=== PATIENT | male | born 1980 | race Caucasian/White ===

== ENCOUNTER 2021-01-30 09:25 | Outpatient (REF) | payer OTHER, SELFPAY ==
[2021-01-30 11:09] LABS: MANUAL DIFF FLAG NO
[2021-01-30 11:15] LABS: Basophils Percent Auto 0.4 % (0-2); Eosinophils Absolute Auto 0.1 X10*3/uL (0.0-0.4); Eosinophils Percent Auto 1.1 % (0-4); Hematocrit 48.9 % (42-52); Hemoglobin 16.4 g/dl (14.0-18.0); Imm Gran Abs Auto 0.03 X10*3/uL (0.00-0.03); Imm Gran Pct Auto 0.4 % (0.0-0.4); Lymphocytes Absolute Auto 1.8 X10*3/uL (1.2-4.9); Lymphocytes Percent Auto 25.1 % (20-40); Mean Corpuscular HGB Conc 33.5 g/dl (31.0-36.0); Mean Corpuscular Hemoglobin 29.5 pg (27.0-33.0); Mean Corpuscular Volume 87.9 fL (80-98); Mean Platelet Volume 11.4 fL (9.4-12.4); Monocytes Absolute Auto 0.7 X10*3/uL (0.1-1.2); Monocytes Percent Auto 9.4 % (2-11); Neutrophils Absolute Auto 4.5 X10*3/uL (2.0-8.3); Neutrophils Percent Auto 63.6 % (45-73); Platelet Count 234 X10*3/uL (160-400); Red Blood Count 5.56 X10*6/uL (4.60-5.80); Red Cell Distribution Width 12.1 % (11.0-16.0)
[2021-01-30 11:39] LABS: Anion Gap 13 (12-20); Blood Urea Nitrogen 13 mg/dL (9-16); Calcium 9.6 mg/dL (8.4-10.2); Carbon Dioxide 27 mmol/L (22-29); Chloride 103 mmol/L (96-108); Estimated Glomerular Filt Rate > 60; Glucose Random 89 mg/dL (60-115); Potassium 4.9 mmol/L (3.3-5.1); Sodium 138 mmol/L (135-145)
[2021-01-30 12:10] LABS: Prothrombin Time 11.1 SEC (9.9-13.0)
== END 2021-01-30 09:26 | disposition home or self-care (01) ==
LOC: HO.HMGCLDS 09:25
PROVIDERS: Visit Provider Internal Medicine Cardiovascular Disease
DX: I25.10 Atherosclerotic heart disease of native coronary artery without angina pectoris (principal)
CPT/HCPCS: 36415; 80048; 85025; 85610

== ENCOUNTER 2021-05-04 12:03 | Outpatient (REF) | payer OTHER, SELFPAY | END 2021-05-04 12:04 | disposition home or self-care (01) | LOC: HO.LNP 12:03 | PROVIDERS: Visit Provider Physician Assistant Medical | DX: Z20.822 Contact with and (suspected) exposure to COVID-19 (principal) | CPT/HCPCS: 87071; U0003; U0005 ==

== ENCOUNTER 2021-08-10 09:35 | Outpatient (REF) | payer OTHER, SELFPAY ==
[2021-08-10 11:47] LABS: Alanine Aminotransferase 27 U/L (0-40); Albumin Level 4.3 g/dL (3.5-5.0); Alkaline Phosphatase 75 U/L (39-117); Aspartate Amino Transferase 20 U/L (5-37); Bilirubin Direct 0.3 mg/dL (0.0-0.5); Cholesterol 150 mg/dL; HDL Cholesterol 36 mg/dL; LDL Cholesterol Calculated 81 mg/dl; Triglycerides 165 mg/dL
== END 2021-08-10 09:36 | disposition home or self-care (01) ==
LOC: HO.HMGCLDS 09:35
PROVIDERS: PCP Internal Medicine; Visit Provider Internal Medicine Cardiovascular Disease
DX: I25.2 Old myocardial infarction (principal)
CPT/HCPCS: 36415; 80061; 80076

== ENCOUNTER 2021-10-03 09:03 | Outpatient (REF) | payer OTHER, SELFPAY ==
[2021-10-03 11:20] LABS: Alanine Aminotransferase 27 U/L (0-40); Albumin Level 4.5 g/dL (3.5-5.0); Alkaline Phosphatase 87 U/L (39-117); Anion Gap 12 (12-20); Aspartate Amino Transferase 19 U/L (5-37); Blood Urea Nitrogen 14 mg/dL (9-16); C Reactive Protein 0.81 mg/dL (< or = 0.50); Calcium 9.5 mg/dL (8.4-10.2); Carbon Dioxide 25 mmol/L (22-29); Chloride 106 mmol/L (96-108); Estimated Glomerular Filt Rate > 60; Glucose Random 105 mg/dL (60-115); Lipase 825 U/L (8-78); Potassium 4.3 mmol/L (3.3-5.1); Sodium 139 mmol/L (135-145); Total Protein 7.1 g/dL (6.5-8.0)
[2021-10-03 15:04] LABS: H Pylori Breath Test Negative (Negative)
[2021-10-04 22:41] LABS: Transglutaminase Ab IgG <1.0 U/mL; Transglutaminase IgA <1.0 U/mL
== END 2021-10-03 09:04 | disposition home or self-care (01) ==
LOC: HO.LAB 09:03
PROVIDERS: PCP Internal Medicine; Referring Provider Internal Medicine; Visit Provider Nurse Practitioner Family
DX: R10.32 Left lower quadrant pain (principal); R19.7 Diarrhea, unspecified; K58.2 Mixed irritable bowel syndrome; K58.9 Irritable bowel syndrome, unspecified; R14.0 Abdominal distension (gaseous); Z79.899 Other long term (current) drug therapy
CPT/HCPCS: 36415; 80053; 83013; 83690; 86140; 86364; 99202

== ENCOUNTER 2021-10-04 13:52 | Outpatient (REF) | payer OTHER, SELFPAY ==
--- NOTE | ~2021-10-04 | CT_ITS ---
EXAMINATION: CT ABDOMEN AND PELVIS WITH CONTRAST CLINICAL INFORMATION: Abdominal pain COMPARISON: CT abdomen pelvis 08/22/2015 TECHNIQUE: Multidetector volumetric images were obtained from the superior aspect of the liver through the pubic symphysis following administration 85 mL of Omnipaque 350 intravenous contrast. Sagittal and coronal reformatted images were obtained on the technologist's workstation. Oral contrast: No This CT examination was performed using dose optimization techniques as appropriate, variously including the following: *Automated exposure control *Adjustment of mA and/or kV according to patient size (this includes techniques or standardized protocols for targeted exams where dose is matched to indication/reason for exam; i.e. extremities or head) *Use of iterative reconstruction technique DLP: 805 mGy-cm FINDINGS: LUNG BASES: Coronary artery stents. ABDOMINAL AND PELVIC WALL: Small fat-containing umbilical hernia. LIVER AND BILIARY TREE: Unremarkable. GALLBLADDER: Cholelithiasis without evidence of acute cholecystitis. PANCREAS: Unremarkable. SPLEEN: Unremarkable. ADRENAL GLANDS: Unremarkable. KIDNEYS AND URETERS: Subcentimeter right renal hypodensities too small to characterize. No hydronephrosis or nephrolithiasis. GASTROINTESTINAL TRACT: Small hiatal hernia. Minimal colonic diverticulosis without evidence of diverticulitis. No findings to suggest appendicitis. VASCULAR: Unremarkable. LYMPH NODES/PERITONEUM: No lymphadenopathy. FREE FLUID: None. BLADDER: Unremarkable. PELVIC VISCERA: Unremarkable. OSSEOUS STRUCTURES: Degenerative disc disease at L5-S1. CT/CT abdomen pelvis w con IMPRESSION: Cholelithiasis without evidence of acute cholecystitis. Minimal colonic diverticulosis without evidence of diverticulitis.
[2021-10-04] MEDS: iohexoL 350 MG/ML 100 ML INFUS..BTL IV (16:20)
[2021-10-04] MEDS: Barium Sulfate Oral (Mocha) 450 ML ORAL.SUSP 900 ML PO (16:21)
== END 2021-10-04 13:53 | disposition home or self-care (01) ==
LOC: HO.CT 13:52
PROVIDERS: PCP Internal Medicine; Visit Provider Nurse Practitioner Family
DX: R10.9 Unspecified abdominal pain (principal); R74.8 Abnormal levels of other serum enzymes
CPT/HCPCS: 74177; Q9967

== ENCOUNTER 2021-10-05 12:01 | Outpatient (REF) | payer OTHER, SELFPAY ==
[2021-10-12 19:11] LABS: Pancreatic Elastase-1 >500 mcg/g
== END 2021-10-05 12:02 | disposition home or self-care (01) ==
LOC: HO.LNP 12:01
PROVIDERS: Visit Provider Nurse Practitioner Family
DX: R19.7 Diarrhea, unspecified (principal)
CPT/HCPCS: 82656

== ENCOUNTER 2021-10-12 08:14 | Outpatient (REF) | payer OTHER, SELFPAY ==
[2021-10-12 08:46] LABS: MANUAL DIFF FLAG NO
[2021-10-12 09:24] LABS: Basophils Percent Auto 0.5 % (0-2); Eosinophils Absolute Auto 0.1 X10*3/uL (0.0-0.4); Eosinophils Percent Auto 1.4 % (0-4); Hemoglobin 16.2 g/dl (14.0-18.0); Imm Gran Abs Auto 0.02 X10*3/uL (0.00-0.03); Imm Gran Pct Auto 0.3 % (0.0-0.4); Lymphocytes Absolute Auto 1.8 X10*3/uL (1.2-4.9); Lymphocytes Percent Auto 27.6 % (20-40); Mean Corpuscular HGB Conc 33.1 g/dl (31.0-36.0); Mean Corpuscular Hemoglobin 29.2 pg (27.0-33.0); Mean Corpuscular Volume 88.3 fL (80.0-98.0); Mean Platelet Volume 10.9 fL (9.4-12.4); Monocytes Absolute Auto 0.8 X10*3/uL (0.1-1.2); Monocytes Percent Auto 12.3 % (2-11); Neutrophils Absolute Auto 3.8 x10*3/uL (2.0-8.3); Neutrophils Percent Auto 57.9 % (45-73); Platelet Count 227 X10*3/uL (160-400); Prothrombin Time 10.8 SEC (9.9-13.0); Red Blood Count 5.55 X10*6/uL (4.60-5.80); Red Cell Distribution Width 12.5 % (11.0-16.0); White Blood Count 6.6 X10*3/uL (4.8-10.8)
[2021-10-12 09:43] LABS: Anion Gap 14 (12-20); Blood Urea Nitrogen 14 mg/dL (9-16); Calcium 9.8 mg/dL (8.4-10.2); Carbon Dioxide 26 mmol/L (22-29); Chloride 104 mmol/L (96-108); Estimated Glomerular Filt Rate > 60; Glucose Random 107 mg/dL (60-115); Potassium 4.6 mmol/L (3.3-5.1); Sodium 139 mmol/L (135-145)
== END 2021-10-12 08:15 | disposition home or self-care (01) ==
LOC: HO.LAB 08:14
PROVIDERS: PCP Internal Medicine; Visit Provider Internal Medicine Cardiovascular Disease
DX: Z01.818 Encounter for other preprocedural examination (principal); I25.10 Atherosclerotic heart disease of native coronary artery without angina pectoris; I21.3 ST elevation (STEMI) myocardial infarction of unspecified site
CPT/HCPCS: 36415; 80048; 85025; 85610

== ENCOUNTER → 2021-11-07 16:24 | Outpatient (BNVA) | payer OTHER, SELFPAY | PROVIDERS: PCP Internal Medicine; Referring Provider Internal Medicine; Visit Provider Nurse Practitioner Family | DX: K58.2 Mixed irritable bowel syndrome (principal); K21.9 Gastro-esophageal reflux disease without esophagitis; R10.32 Left lower quadrant pain; R19.7 Diarrhea, unspecified | CPT/HCPCS: 99212 ==

== ENCOUNTER 2021-11-09 12:03 | Outpatient (REF) | payer OTHER, SELFPAY ==
[2021-11-09 13:29] LABS: Blood Urea Nitrogen 18 mg/dL (9-16); Estimated Glomerular Filt Rate > 60; Lipase 78 U/L (8-78)
[2021-11-09 13:41] LABS: TSH reflex Free T4 0.92 uIU/mL (0.32-4.0)
[2021-11-09 13:46] LABS: Folate 10.4 ng/mL (> or = 4.0); Vitamin B12 410 pg/mL (200-900)
[2021-11-09 14:08] LABS: Erythrocyte Sedimentation Rate 2 MM/HR (0-15)
[2021-11-13 15:00] LABS: Anti Nuclear Antibody Screen NEGATIVE (NEGATIVE)
[2021-11-15 14:56] LABS: Vitamin D 25-OH, D2 <4 ng/mL; Vitamin D 25-OH, D3 20 ng/mL; Vitamin D 25-OH, Total 20 ng/mL (30-100)
== END 2021-11-09 12:04 | disposition home or self-care (01) ==
LOC: HO.LAB 12:03
PROVIDERS: PCP Internal Medicine; Visit Provider Nurse Practitioner Family
DX: R74.8 Abnormal levels of other serum enzymes (principal); R10.11 Right upper quadrant pain; E55.9 Vitamin D deficiency, unspecified; R10.32 Left lower quadrant pain; R19.7 Diarrhea, unspecified; Z91.09 Other allergy status, other than to drugs and biological substances
CPT/HCPCS: 36415; 82306; 82565; 82607; 82746; 83690; 84443; 84520; 85652; 86003; 86038; 86039

== ENCOUNTER 2021-12-12 17:14 | Outpatient (REF) | payer OTHER, SELFPAY ==
--- NOTE | ~2021-12-12 | XR_ITS ---
EXAMINATION: XR ORBITS CLINICAL INFORMATION: Pre-MRI orbit. COMPARISON: None TECHNIQUE: 3 views of the orbits were obtained. FINDINGS: No metallic foreign bodies involving the orbits or facial structures. Soft tissue density at the medial right maxillary sinus with polyp or retention cyst. This measures about 2 cm. XR/XR orbit min 4V IMPRESSION: No metallic foreign bodies.
--- NOTE | ~2021-12-12 | MR_ITS ---
EXAMINATION: MR ABDOMEN WITHOUT AND WITH CONTRAST CLINICAL INFORMATION: Chronic pancreatitis. COMPARISON: CT abdomen/pelvis 10/04/2021 TECHNIQUE: MRI of the abdomen before and after the IV administration of 10 mL of Gadavist was obtained using routine sequences. FINDINGS: LUNG BASES: No pleural effusion. LIVER, GALLBLADDER, AND BILIARY TREE: The imaged liver is normal in size and contour. No focal hepatic lesion. No biliary ductal dilatation. Gallstones not well visualized. PANCREAS: Normal contour and signal intensity. Homogeneous enhancement. No peripancreatic stranding or peripancreatic fluid collections. No ductal dilatation. SPLEEN: Not enlarged. ADRENAL GLANDS: No adrenal masses. KIDNEYS: Symmetric in size and enhancement. 1.3 cm sebaceous cyst versus hemorrhagic cyst posterior midpole right kidney. No hydronephrosis. BOWEL AND PERITONEUM: Imaged loops of small and large bowel are not obstructed. No ascites. LYMPH NODES: No bulky abdominal lymphadenopathy. VASCULAR: Normal caliber abdominal aorta. MR/MR abdomen wo/w con IMPRESSION: No acute abnormality.
== END 2021-12-12 17:15 | disposition home or self-care (01) ==
LOC: HO.MRI 17:14
PROVIDERS: Visit Provider Nurse Practitioner Family
DX: Z01.810 Encounter for preprocedural cardiovascular examination (principal); R10.9 Unspecified abdominal pain; K86.1 Other chronic pancreatitis; R11.2 Nausea with vomiting, unspecified
CPT/HCPCS: 70200; 74183; A9585

== ENCOUNTER → 2022-01-05 09:24 | Outpatient (BNVA) | payer OTHER, SELFPAY | PROVIDERS: PCP Internal Medicine; Visit Provider Nurse Practitioner Family | DX: R10.32 Left lower quadrant pain (principal); K21.9 Gastro-esophageal reflux disease without esophagitis; K58.2 Mixed irritable bowel syndrome; K86.1 Other chronic pancreatitis | CPT/HCPCS: 99212 ==

== ENCOUNTER 2022-03-27 12:08 | Day surgery (SDC) | payer OTHER, SELFPAY ==
--- NOTE | 2022-03-23 12:46 | HO.ANESPROP2 ---
Documented by User: Marj Haro NP 03/23/22 12:57 HPI - Anesthesia Eval Consult details Narrative: 42yo M for Upper Endoscopy CAD with SD/Stent 2019. On Brilinta and ASA. OK to stop per cardiology. Per 10/2021 cardiac office visit, cath from this year shows unchanged moderate CAD, patent RCA stent PMFSH Active Problems Active Problems: All Active Problems (Updated 03/21/22 @ 12:02 by Shelly Erickson, TERESSA) Tinea (Acute) Eczematous dermatitis (Acute) Establishing care with new doctor, encounter for (Acute) Coronary artery disease (Acute) History of coronary artery stent placement (Acute) Obesity (BMI 30-39.9) (Acute) Blurring of vision (Acute) Contusion of left knee (Acute) Contusion of arm (Acute) Essential hypertension (Acute) Encounter for general adult medical examination with abnormal findings (Acute) Eczema (Acute) Shortness of breath (Acute) Elevated lipase (Acute) Past Medical History Medical History CAD (coronary artery disease) Dyslipidemia Elevated lipase GERD (gastroesophageal reflux disease) HTN (hypertension) Hx of ventricular tachycardia IBS (irritable bowel syndrome) Myocardial infarction On anticoagulant therapy Family History Family History Father Heart problem HTN (hypertension) Paternal Grandfather HTN (hypertension) Surgical History Surgical History (Updated 03/27/22 @ 12:31 by Dionne Owens RN) History of heart artery stent History of surgery on arm Hx of appendectomy Hx of bone graft Hx of tonsillectomy Social History Social History Housing: House Alcohol intake: current Alcohol intake frequency: holidays/special occasions only Patient Tobacco Use Status: Former Tobacco user Quit Date: 17 yr ago Years Smoked: 11 years Use of substances other than those prescribed or required for medical reasons: Yes Substance Use Frequency: Daily Are you DNR?: No Advance Directives: No Advance Directives Information Provided: Yes 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) Meds Allergies Allergy/AdvReac Type Severity Reaction Status Date / Time No Known Allergies Allergy Verified 03/21/22 11:57 Home Medications Medication Instructions Recorded Confirmed Last Taken Type aspirin 81 mg chewable tablet 1 tab PO DAILY 08/02/20 03/21/22 03/26/22 History atorvastatin 80 mg tablet 80 mg PO BEDTIME 08/02/20 03/21/22 Unknown History carvedilol 6.25 mg tablet 6.25 mg PO BID 08/02/20 03/21/22 Unknown History ezetimibe 10 mg tablet 10 mg PO DAILY 08/02/20 03/21/22 Unknown History lisinopril 20 mg tablet 20 mg PO DAILY 08/02/20 03/21/22 Unknown History nitroglycerin 0.4 mg sublingual 0.4 mg sublingual 03/03/21 04/28/21 Unknown History tablet ticagrelor 90 mg tablet (Brilinta) 90 mg PO BID 03/03/21 03/21/22 03/21/22 History Exam Exam Date and Time: March 23, 2022 1246 Pertinent Lab Results Pertinent Lab Results: Laboratory Tests 10/12/21 10/12/21 11/09/21 08:44 08:44 12:14 WBC 6.6 Hgb 16.2 Hct 49.0 Plt Count 227 Sodium 139 Potassium 4.6 Chloride 104 Carbon Dioxide 26 BUN 18 H Creatinine 0.79 Assessment and Plan Assessment Anesthesia Assessment: Chart Reviewed Documented by User: Ethan Soto MD 03/27/22 13:22 [facility] Past Medical History Medical History CAD (coronary artery disease) Dyslipidemia Elevated lipase GERD (gastroesophageal reflux disease) HTN (hypertension) Hx of ventricular tachycardia IBS (irritable bowel syndrome) Myocardial infarction On anticoagulant therapy Family History Family History Father Heart problem HTN (hypertension) Paternal Grandfather HTN (hypertension) Family history of problems with anesthesia: No Surgical History Surgical History (Updated 03/27/22 @ 12:31 by Dionne Owens RN) History of heart artery stent History of surgery on arm Hx of appendectomy Hx of bone graft Hx of tonsillectomy History of Problems with Anesthesia: No Social History Social History Housing: House Alcohol intake: current Alcohol intake frequency: holidays/special occasions only Patient Tobacco Use Status: Former Tobacco user Quit Date: 17 yr ago Years Smoked: 11 years Use of substances other than those prescribed or required for medical reasons: Yes Substance Use Frequency: Daily Are you DNR?: No Advance Directives: No Advance Directives Information Provided: Yes 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) Meds Allergies Allergy/AdvReac Type Severity Reaction Status Date / Time No Known Allergies Allergy Verified 03/21/22 11:57 Home Medications Medication Instructions Recorded Confirmed Last Taken Type aspirin 81 mg chewable tablet 1 tab PO DAILY 08/02/20 03/21/22 03/26/22 History atorvastatin 80 mg tablet 80 mg PO BEDTIME 08/02/20 03/21/22 Unknown History carvedilol 6.25 mg tablet 6.25 mg PO BID 08/02/20 03/21/22 Unknown History ezetimibe 10 mg tablet 10 mg PO DAILY 08/02/20 03/21/22 Unknown History lisinopril 20 mg tablet 20 mg PO DAILY 08/02/20 03/21/22 Unknown History nitroglycerin 0.4 mg sublingual 0.4 mg sublingual 03/03/21 04/28/21 Unknown History tablet ticagrelor 90 mg tablet (Brilinta) 90 mg PO BID 03/03/21 03/21/22 03/21/22 History Exam Airway Mallampati Class: III TM Dist: >3cm Neck ROM: Full Loose/Missing/Broken Teeth: No (Rrr) Lungs: clear Assessment and Plan Final Anesthetic Review Family History of Problems with Anesthesia: No History of Problems with Anesthesia: No NPO: Yes ASA Class: IV Final Preanesthetic Review: No Changes in Pt Med Stat, Meds/Allgs Chart Reviewed, Consent Obtained/Reviewed and Anes Risks/Benef Reviewed Patient Risk: High Procedure Risk: Low Anesthetic Plan Anesthetic Plan: MAC: Disposition: Standard PACU
--- NOTE | 2022-03-27 | ECG_ITS ---
Test Reason : cad, mi, htn Blood Pressure : / mmHG Vent. Rate : 066 BPM Atrial Rate : 066 BPM P-R Int : 158 ms QRS Dur : 080 ms QT Int : 344 ms P-R-T Axes : 040 036 042 degrees QTc Int : 360 ms Normal sinus rhythm Normal ECG No previous ECGs available Referred By: Majr Haro Electronically Signed By:OMAR JUARES
[2022-03-27 12:33] VITALS: BMI 39.1
[2022-03-27 12:40] VITALS: BP 132/88; PULSE 71; RESP 16; TEMP 36.9; O2SAT 97
--- NOTE | 2022-03-27 12:41 | MHC.SHP ---
Pre-Procedural Eval Section A Date of Service: 03/27/22 Section B Chief Complaint: reflux Details of Present Illness: abdominal pain and diarrhea, dark stools on brilinta Relevant Family History (Specify if Yes): No Relevant Social History: None Present Medications: see Short Stay Collaborative assessment Medical History: Significant History (CAD, eczema, HTN, HLP ) History of Previous Operations: Relevant previous surgery/procedure and date(s) (History of surgery on arm Hx of appendectomy) Allergies: Allergies Allergy/AdvReac Type Severity Reaction Status Date / Time No Known Allergies Allergy Verified 03/21/22 11:57 Review of Systems Sugical H&P ROS: Negative: Constitution, Cardiovascular, Respiratory, Neurological, Psychiatric, Hem-Onc, Allergic/Immunologic, Gastrointestinal, Genitourinary, Musculoskeletal, Integumentary, Endocrine and Eyes/Ears/Nose/Throat Exam Surgical H&P Exam: Normal: HEENT, Normal: Heart, Normal: Lungs, Normal: Extremities, Normal: Abdomen, Normal: Skin and Normal: Neurological Plan Diagnosis/Plan: Unchanged I have reviewed the history and physical and performed a pertinent physical examination on my patient. No changes have occurred unless specified.
[2022-03-27] MEDS: Lactated Ringers 1,000 ML 100 ML IVCONT (12:59)
--- NOTE | 2022-03-27 13:10 | W.PM.OPN ---
Operative Note Operative Note Date of Service: 03/27/22 Narrative: Procedure Description: EGD Indication: GERd, diarrhea, abdominal pain Anesthesia: MAC FLEXIBLE TRANSORAL UPPER GASTROINTESTINAL ENDOSCOPY UPPER ENDOSCOPY Consent: Indications for the procedure and potential complications of bleeding, perforation, reaction to medications and missed diagnosis were discussed with the patient and informed consent was obtained. Instrument: Olympus GIF H 190 J mid size upper endoscope Monitoring: Vital signs and clinical assessment, continuous EKG monitoring, Pulse oximetry, Carbon Dioxide monitoring and blood pressure monitoring were done throughout the procedure. Procedure: The patient was placed in the left lateral decubitis position and pre-procedure medications were administered and a bite block was placed. The endoscope was inserted into the mouth and advanced under direct vision to the third part of duodenum. A careful inspection was made as the upper endoscope was withdrawn including a retroflexed examination of the proximal stomach; Findings and interventions are described below. Findings: Larynx:normal Esophagus: GE junction at 40 cm, diaphragm hiatus at 40 cm, bogginess and swelling with erythema consistent with severe esophagitis at the GEj, bx taken as well as from distal esophagus Stomach: Mild patchy gastric erythema. Biopsies were obtained. Grade 2 flap valve on retroflexed examination of the cardia. Duodenum: Mild duodenitis, bx taken Intervention: Biopsies as noted above Impression/Findings: esophagitis gastritis duodenitis PLAN: commence PPI if not taking if symptoms persist then PPI consider repeat EGD in 3-6 months to recheck for barretts can restart brilinta tomorrow reflux precautions
[2022-03-27 13:55] VITALS: BP 136/77; PULSE 83; RESP 28; TEMP 36.6; O2SAT 97
[2022-03-27 14:10] VITALS: BP 122/84; PULSE 72; RESP 18; TEMP 36.6; O2SAT 97
== END 2022-03-27 15:04 | disposition home or self-care (01) ==
PROVIDERS: PCP Internal Medicine; Visit Provider Internal Medicine Gastroenterology
PROC: 0DJ08ZZ Inspection of Upper Intestinal Tract, Via Natural or Artificial Opening Endoscopic (ICD-10-PCS; CPT 43235; principal; 2022-03-27 13:40)
DX: K21.9 Gastro-esophageal reflux disease without esophagitis (principal); R10.32 Left lower quadrant pain; K20.80 Other esophagitis without bleeding; K29.80 Duodenitis without bleeding; K29.70 Gastritis, unspecified, without bleeding; K44.9 Diaphragmatic hernia without obstruction or gangrene; K58.2 Mixed irritable bowel syndrome; K86.1 Other chronic pancreatitis; I25.10 Atherosclerotic heart disease of native coronary artery without angina pectoris; Z98.61 Coronary angioplasty status; I10 Essential (primary) hypertension; I25.2 Old myocardial infarction; Z79.01 Long term (current) use of anticoagulants; Z79.82 Long term (current) use of aspirin; Z79.899 Other long term (current) drug therapy; Z87.891 Personal history of nicotine dependence
CPT/HCPCS: 43239; 88305; 88342; 93005

== ENCOUNTER 2022-10-16 12:48 | Outpatient (REF) | payer OTHER, SELFPAY ==
--- NOTE | ~2022-10-16 | US_ITS ---
EXAMINATION: US SCROTUM CLINICAL INFORMATION: Scrotal mass. COMPARISON: None available. TECHNIQUE: A sonogram of the scrotum was performed assessing lilly-scale appearance and color Doppler flow. Spectral Doppler analysis of the arterial and venous flow were performed in the testes bilaterally. FINDINGS: RIGHT: Right testicle measures 5.5 x 2.6 x 4.1 cm, volume 26.0 mL. No focal testicular parenchymal lesions are visualized. Spectral Doppler analysis of the arterial and venous flow is normal in the right testis. Right epididymal head is normal in size. Right epididymal Doppler flow is normal. There are right varicoceles. There is a small right hydrocele. LEFT: Left testicle measures 4.7 x 2.6 x 3.6 cm, volume 23.1 mL. No focal testicular parenchymal lesions are visualized. Spectral Doppler analysis of the arterial and venous flow is normal in the left testis. Left epididymal head is normal in size. A 2 mm left epididymal head cyst versus spermatocele is seen. A 3 mm left epididymal body cyst is seen. No left hydrocele or varicocele is seen. Left epididymal Doppler flow is normal. An 8 x 5 x 8 mm anechoic, simple cyst is seen in the vicinity of the spermatic cord. This could represent a spermatic cord cyst or a small peritoneal inclusion cyst US/US scrotum IMPRESSION: 1. Small left epididymal cysts are noted, as detailed. 2. There is a small right hydrocele. 3. There are isolated right varicocele. No retroperitoneal mass is noted on the MRI abdomen dated 12/13/[address] abdomen and pelvis dated 10/04/2021. Consider repeat cross-sectional evaluation of the abdomen and pelvis to exclude the possibility of retroperitoneal mass. 4. And 8 mm simple cyst is seen in the vicinity of the left spermatic cord.
== END 2022-10-16 12:49 | disposition home or self-care (01) ==
LOC: HO.HMGCX 12:48
PROVIDERS: PCP Internal Medicine; Visit Provider Internal Medicine
DX: N50.89 Other specified disorders of the male genital organs (principal)
CPT/HCPCS: 76870

== ENCOUNTER → 2022-11-20 09:51 | Outpatient (BNVA) | payer OTHER, SELFPAY | PROVIDERS: PCP Internal Medicine; Visit Provider Nurse Practitioner Family | DX: N43.3 Hydrocele, unspecified (principal); N50.3 Cyst of epididymis; Z79.82 Long term (current) use of aspirin; Z79.899 Other long term (current) drug therapy | CPT/HCPCS: 99202 ==

== ENCOUNTER 2023-01-08 07:31 | Outpatient (REF) | payer OTHER, SELFPAY ==
[2023-01-08 11:39] LABS: Hematocrit 46.1 % (42.0-52.0); Hemoglobin 15.5 g/dl (14.0-18.0); Mean Corpuscular HGB Conc 33.6 g/dl (31.0-36.0); Mean Corpuscular Hemoglobin 29.5 pg (27.0-33.0); Mean Corpuscular Volume 87.6 fL (80.0-98.0); Mean Platelet Volume 11.7 fL (9.4-12.4); Platelet Count 241 X10*3/uL (160-400); Red Blood Count 5.26 X10*6/uL (4.60-5.80); Red Cell Distribution Width 12.3 % (11.0-16.0); White Blood Count 7.6 X10*3/uL (4.8-10.8)
[2023-01-08 12:13] LABS: Alanine Aminotransferase 19 U/L (0-40); Albumin Level 4.2 g/dL (3.5-5.0); Alkaline Phosphatase 80 U/L (39-117); Amylase 161 U/L (28-100); Anion Gap 10 (12-20); Aspartate Amino Transferase 19 U/L (5-37); Bilirubin Direct 0.3 mg/dL (0.0-0.5); Bilirubin Total 0.7 mg/dL (0.0-1.0); Blood Urea Nitrogen 14 mg/dL (9-16); Calcium 9.3 mg/dL (8.4-10.2); Carbon Dioxide 26 mmol/L (22-29); Chloride 107 mmol/L (96-108); Estimated Glomerular Filt Rate > 60; Glucose Random 105 mg/dL (60-115); Lipase 183 U/L (8-78); Potassium 4.1 mmol/L (3.3-5.1); Sodium 139 mmol/L (135-145)
== END 2023-01-08 07:32 | disposition home or self-care (01) ==
LOC: HO.HMGCLDS 07:31
PROVIDERS: PCP Internal Medicine; Visit Provider Internal Medicine
DX: R10.9 Unspecified abdominal pain (principal)
CPT/HCPCS: 36415; 80048; 80076; 82150; 83690; 85027

== ENCOUNTER 2023-01-09 12:00 | Emergency (ER) | payer OTHER, SELFPAY ==
[2023-01-09 12:14] VITALS: BP 145/70; PULSE 91; RESP 18; TEMP 36.7; O2SAT 95; BMI 42.8
--- NOTE | 2023-01-09 12:16 | ED.ABDPAIN ---
HPI - Abdominal Pain General Chief Complaint: Abdominal Pain Stated Complaint: ? Pancreatitis Time Seen by Provider: 01/09/23 15:51 Source: patient and old records reviewed Mode of arrival: ambulatory Limitations: no limitations History of Present Illness HPI narrative: 42-year-old male with history of chronic abdominal pain for the last 1.5 years, CAD status post stent, obesity, gallstones, eczema, HTN, history of chronic pancreatitis who presents to the ER for evaluation of abnormal lab work as an outpatient. Patient states he went to an urgent care clinic yesterday for evaluation of his left upper quadrant pain, which is intermittent and has been on and off for the last year and a half. He states he had lab work done revealing an elevated lipase. They called him and told him come to the ER for IV fluids and treatment. Patient states he has had elevated lipase in the 800 range in the past. He has never required admission. He does not know the cause. He states he drinks alcohol maybe once per month. He denies ever having any right upper quadrant pain. He states he gets shooting and sharp left upper quadrant pain that radiates to his epigastric area and left lower quadrant. No current pain at this time. 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 Nagy in January. MD elicited complaint: abdominal pain and other (Abnormal labs) Pertinent past history: other (Pancreatitis) Onset (ago): year(s) (1.5) Pain Consistency: intermittent Location: LUQ Severity: moderate Quality: stabbing Radiation: LLQ and epigastric Migration to: no migration Exacerbating factors: nothing Relieving factors: nothing Context: history of similar episodes Associated symptoms: nausea Related Data Home Medications Medication Instructions Recorded Confirmed aspirin 81 mg chewable tablet 1 tab PO DAILY 08/02/20 10/09/22 atorvastatin 80 mg tablet 80 mg PO BEDTIME 08/02/20 10/09/22 carvedilol 6.25 mg tablet 6.25 mg PO BID 08/02/20 10/09/22 ezetimibe 10 mg tablet 10 mg PO DAILY 08/02/20 10/09/22 lisinopril 20 mg tablet 20 mg PO DAILY 08/02/20 10/09/22 nitroglycerin 0.4 mg sublingual 0.4 mg sublingual 03/03/21 10/09/22 tablet ticagrelor 90 mg tablet (Brilinta) 90 mg PO BID 03/03/21 10/09/22 Previous Rx's Medication Instructions Recorded betamethasone, augmented 0.05 % 1 appl topical BID PRN itching #50 04/13/21 topical cream grams olopatadine 0.1 % eye drops 1 drp ophthalmic (eye) BID #5 mL 07/17/22 (Pataday Twice Daily Relief) pantoprazole 40 mg tablet,delayed 40 mg PO DAILY #30 tabs 01/07/23 release Allergies Allergy/AdvReac Type Severity Reaction Status Date / Time No Known Allergies Allergy Verified 01/07/23 14:58 Review of Systems Review of Systems Yes all other systems are reviewed and are negative [facility] Past Medical History Medical History CAD (coronary artery disease) Dyslipidemia Elevated lipase GERD (gastroesophageal reflux disease) HTN (hypertension) Hx of ventricular tachycardia IBS (irritable bowel syndrome) Myocardial infarction On anticoagulant therapy Surgical History History of esophagogastroduodenoscopy (EGD) History of heart artery stent History of surgery on arm Hx of appendectomy Hx of bone graft Hx of tonsillectomy Family History Family History Father Heart problem HTN (hypertension) Paternal Grandfather HTN (hypertension) Social History Social History Housing: House Alcohol intake: current Alcohol intake frequency: holidays/special occasions only Patient Tobacco Use Status: Former Tobacco user Quit Date: 17 yr ago Years Smoked: 11 years e-Cigarette/Vaping Use: Never Used Second Hand Smoke Exposure: No Advance Directives: No Advance Directives Information Provided: No service: No 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 Oriented X3. No acute distress. Head: normocephalic, atraumatic. Eyes: Pupils equal, round and reactive to light. ENT: Pharynx normal. No tonsillar swelling or exudate. Neck: Normal inspection. Neck supple. CVS: Normal heart rate and rhythm. Pulses normal. Respiratory: No respiratory distress. Breath sounds normal. Abdomen: Soft, obese and nontender. +BS x4 Skin: Skin warm and dry. Normal skin color. Normal skin turgor. No rashes. Extremities: No lower extremity edema. No joint swelling. Neuro/psych: Oriented X 3. No motor deficit. No sensory deficit. CN II-XII intact. Normal speech and cognition. Course Course Course Narrative: RME: 42-year-old male with past medical history pancreatitis presenting to the ED complaining of intermittent epigastric/RUQ abdominal pain and bloating times 6-7 months. Was seen at walk-in clinic on 01/07 had outpatient labs which showed elevated lipase, instructed to come to the ED for further eval. Denies pain at present. Likely EtOH on Father's Day Abdomen soft/nontender, nontoxic appearing Labs, UA ordered Full HPI, ROS and PE to be performed by primary ED provider. Medical Decision Making Medical Decision Making [facility] Narrative: 42-year-old male with history of chronic abdominal pain, history pancreatitis of unclear etiology who presents to the ER for evaluation of abnormal lab work and intermittent abdominal pain for the last year and a half. He has no current pain. His lab workup is unremarkable. His lipase is down to 21. He has gen right upper quadrant pain or any tenderness on examination. His prior imaging was reviewed. He had a normal abdominal MRI done about a year ago. He also had right upper quadrant ultrasound done showing cholelithiasis but no evidence of cholecystitis. Doubt any acute biliary issues today given his normal LFTs and no pain. He has outpatient GI follow-up. Comfortable discharge home with outpatient follow-up. Stable for discharge Differential Diagnosis Differential Diagnoses: The differential diagnosis associated with the presentation includes acute on chronic pancreatitis, biliary colic, gallstone pancreatitis, etoh pancreatitis, gastritis, GERD, diverticulitis Admission/Observation Consideration of admission/observation: Escalation of care including admission/observation considered Had abnormal lipase yesterday, has since normalized, pain-free. Lab Data [facility] Lab Attestation statement: I reviewed the patient's lab results. Unremarkable, normal renal function, normal lipase today 01/09/23 12:27 01/09/23 12: Labs: Lab Results 01/09/23 01/09/23 01/09/23 Range/Units 12:27 12:27 12:27 WBC 7.9 (4.8-10.8) X10*3/uL RBC 5.34 (4.60-5.80) X10*6/uL Hgb 15.7 (14.0-18.0) g/dl Hct 45.4 (42.0-52.0) % MCV 85.0 (80.0-98.0) fL MCH 29.4 (27.0-33.0) pg MCHC 34.6 (31.0-36.0) g/dl RDW 12.3 (11.0-16.0) % Plt Count 228 (160-400) X10*3/uL MPV 10.7 (9.4-12.4) fL Immature Gran % (Auto) 0.1 (0.0-0.4) % Neut % (Auto) 64.5 (45-73) % Lymph % (Auto) 24.8 (20-40) % [place] % (Auto) 9.0 (2-11) % Eos % (Auto) 1.1 (0-4) % Baso % (Auto) 0.5 (0-2) % Lymph # (Auto) 2.0 (1.2-4.9) X10*3/uL [place] # (Auto) 0.7 (0.1-1.2) X10*3/uL Eos # (Auto) 0.1 (0.0-0.4) X10*3/uL Baso # (Auto) 0.0 (0.0-0.2) X10*3/uL Abs Immat Gran (auto) 0.01 (0.00-0.03) X10*3/uL Absolute Neuts (auto) 5.1 (2.0-8.3) x10*3/uL Absolute Nucleated RBC 0.000 (0.0-0.012) X10*3/uL Nucleated RBC % (auto) 0.0 (0.0-0.2) /100WBC PT 11.1 (10.0-13.1) SEC INR 1.0 (0.9-1.1) Sodium 140 (135-145) mmol/L Potassium 4.0 (3.3-5.1) mmol/L Chloride 106 (96-108) mmol/L Carbon Dioxide 26 (22-29) mmol/L Anion Gap 12 (12-20) BUN 17 H (9-16) mg/dL Creatinine 0.85 (0.5-1.4) mg/dL Estim Creat Clear Calc 150.6 Estimated GFR > 60 Random Glucose 103 (60-115) mg/dL Calcium 9.5 (8.4-10.2) mg/dL Magnesium 1.9 (1.6-2.6) mg/dL Total Bilirubin 1.2 H (0.0-1.0) mg/dL Direct Bilirubin 0.3 (0.0-0.5) mg/dL AST 18 (5-37) U/L ALT 20 (0-40) U/L Alkaline Phosphatase 83 (39-117) U/L Total Protein 7.1 (6.5-8.0) g/dL Albumin 4.3 (3.5-5.0) g/dL Lipase 21 (8-78) U/L External Record Review External record reviewed: Office record, Outpatient record, Prior outpatient labs and Prior outpatient radiology Tests considered The following testing was considered but not selected: CT scan of the abdomen and right upper quadrant ultrasound were considered however these were done in the past and were normal. He is pain-free and nontender at this time Prescription Management I considered prescription management with: Pain Medication Chronic Conditions Patient?s care impacted by: Hypertension and Other (Obesity and gallstones) Critical Care Time Critical Care Time Critical Care Time: No Discharge Plan Discharge Clinical Impression: Chronic abdominal pain Patient Disposition: Home, Self-Care Instructions: Chronic Abdominal Pain (ED) Additional Instructions: Your lab workup today was unremarkable. You had a normal abdominal MRI one year ago. You also had ultrasound in the past showing some gallstones but no evidence of gallbladder infection. Recommend abstaining from alcohol. Follow up with Dr. Nagy. Keep a food diary to see if anything in your diet correlates with your pain episodes. If you develop new or worsening symptoms call 911 or come back to the ER for further evaluation. Prescriptions: No Action Brilinta 90 mg tablet 90 mg PO BID nitroglycerin 0.4 mg tablet, sublingual 0.4 mg sublingual aspirin 81 mg tablet,chewable 1 tab PO DAILY lisinopril 20 mg tablet 20 mg PO DAILY ezetimibe 10 mg tablet 10 mg PO DAILY carvedilol 6.25 mg tablet 6.25 mg PO BID atorvastatin 80 mg tablet 80 mg PO BEDTIME betamethasone, augmented 0.05 % cream 1 appl topical BID PRN (Reason: itching) Qty: 50 3RF olopatadine [Pataday Twice Daily Relief] 0.1 % drops 1 drp ophthalmic (eye) BID Qty: 5 1RF Rx Instructions: separate doses by at least 6-8 hours pantoprazole 40 mg tablet,delayed release (DR/EC) 40 mg PO DAILY Qty: 30 0RF Interventions: ED Discharge Assessment Last Done: 01/09/23 16:13 Discharge Date/Time: 01/09/23 16:13
[2023-01-09 12:33] LABS: MANUAL DIFF FLAG NO
[2023-01-09 12:36] LABS: Basophils Percent Auto 0.5 % (0-2); Eosinophils Absolute Auto 0.1 X10*3/uL (0.0-0.4); Eosinophils Percent Auto 1.1 % (0-4); Hematocrit 45.4 % (42.0-52.0); Hemoglobin 15.7 g/dl (14.0-18.0); Imm Gran Abs Auto 0.01 X10*3/uL (0.00-0.03); Imm Gran Pct Auto 0.1 % (0.0-0.4); Lymphocytes Percent Auto 24.8 % (20-40); Mean Corpuscular HGB Conc 34.6 g/dl (31.0-36.0); Mean Corpuscular Hemoglobin 29.4 pg (27.0-33.0); Mean Platelet Volume 10.7 fL (9.4-12.4); Monocytes Absolute Auto 0.7 X10*3/uL (0.1-1.2); Neutrophils Absolute Auto 5.1 x10*3/uL (2.0-8.3); Neutrophils Percent Auto 64.5 % (45-73); Platelet Count 228 X10*3/uL (160-400); Red Blood Count 5.34 X10*6/uL (4.60-5.80); Red Cell Distribution Width 12.3 % (11.0-16.0); White Blood Count 7.9 X10*3/uL (4.8-10.8)
[2023-01-09 12:47] LABS: Prothrombin Time 11.1 SEC (10.0-13.1)
[2023-01-09 12:50] LABS: Alanine Aminotransferase 20 U/L (0-40); Albumin Level 4.3 g/dL (3.5-5.0); Alkaline Phosphatase 83 U/L (39-117); Anion Gap 12 (12-20); Aspartate Amino Transferase 18 U/L (5-37); Bilirubin Direct 0.3 mg/dL (0.0-0.5); Bilirubin Total 1.2 mg/dL (0.0-1.0); Blood Urea Nitrogen 17 mg/dL (9-16); Calcium 9.5 mg/dL (8.4-10.2); Carbon Dioxide 26 mmol/L (22-29); Chloride 106 mmol/L (96-108); Creatinine Clr Calc Pharmacy 150.6; Estimated Glomerular Filt Rate > 60; Glucose Random 103 mg/dL (60-115); Lipase 21 U/L (8-78); Magnesium 1.9 mg/dL (1.6-2.6); Sodium 140 mmol/L (135-145); Total Protein 7.1 g/dL (6.5-8.0)
[2023-01-09 15:33] VITALS: BP 95/42; PULSE 69; RESP 19; O2SAT 97
[2023-01-09 15:45] VITALS: BP 112/56; PULSE 61; RESP 16; TEMP 36.5; O2SAT 98
== END 2023-01-09 16:13 | disposition home or self-care (01) ==
PROVIDERS: Physician Assistant; Emergency Provider Emergency Medicine Emergency Medical Services; PCP Internal Medicine
DX: G89.29 Other chronic pain (principal); R10.9 Unspecified abdominal pain; I10 Essential (primary) hypertension; E78.5 Hyperlipidemia, unspecified; Z87.891 Personal history of nicotine dependence
CPT/HCPCS: 36415; 80048; 80076; 83690; 83735; 85025; 85610; 99283

== ENCOUNTER 2023-01-28 11:31 | Outpatient (REF) | payer OTHER, SELFPAY ==
[2023-01-28 14:23] LABS: Folate 6.8 ng/mL (> or = 4.0); Vitamin B12 354 pg/mL (200-900)
[2023-01-28 15:09] LABS: C Reactive Protein 0.21 mg/dL (< or = 0.50)
[2023-01-28 15:27] LABS: Ferritin 189 ng/mL (20-250); Insulin 31 uU/mL (2-29); Vitamin D 25-OH Total 36.5 ng/mL (>30)
[2023-01-29 16:02] LABS: Glucose Random 88 mg/dL (60-115)
[2023-01-30 03:39] LABS: HBc Num1 0.07 S/CO (0.00-0.79); HBsAGNum1 0.31 S/CO (0.00-0.99); Hepatitis B Core Antibody Nonreactive (Nonreactive); Hepatitis B Surface Antigen Negative (Negative); ~HepC Num1 0.06 S/CO (0.00-0.79); ~Hepatitis A Antibody IgM Nonreactive (Nonreactive); ~Hepatitis B Surface Antibody NONREACTIVE (Nonreactive); ~Hepatitis C Antibody Nonreactive (Nonreactive)
[2023-01-30 23:27] LABS: C Peptide 4.91 ng/mL (0.80-3.85)
[2023-01-31 16:04] LABS: IgA 200 mg/dL (47-310); IgG 1025 mg/dL (600-1640); IgM 98 mg/dL (50-300)
[2023-02-01 13:23] LABS: Metanephrine, Free 31 pg/mL (<=57); Normetanephrines, Free 58 pg/mL (<=148); Total Metanephrine, Free 89 pg/mL (<=205)
[2023-02-01 15:59] LABS: Histamine Plasma <1.5 ng/mL (< OR = 1.8)
[2023-02-01 20:08] LABS: Vitamin A 43 mcg/dL (38-98)
[2023-02-02 00:03] LABS: Zinc 68 mcg/dL (60-130)
[2023-02-02 05:39] LABS: Vitamin B1 10 nmol/L (8-30)
[2023-02-02 11:33] LABS: Gastrin <15 pg/mL (<=100)
[2023-02-02 18:08] LABS: Vitamin K1 402 pg/mL (130-1500)
[2023-02-03 00:13] LABS: Alpha-Tocopherol 8.4 mg/L (5.7-19.9); Beta-Gamma Tocopherol 1.7 mg/L (<=4.3)
[2023-02-03 14:03] LABS: Vitamin B6 4.6 ng/mL (2.1-21.7)
[2023-02-04 21:32] LABS: Nicotinamide 28 ng/mL; Vit B3 - Nicotinic Acid <20 ng/mL
== END 2023-01-28 11:32 | disposition home or self-care (01) ==
LOC: HO.LAB 11:31
PROVIDERS: PCP Internal Medicine; Visit Provider Internal Medicine Gastroenterology
DX: K21.9 Gastro-esophageal reflux disease without esophagitis (principal); K20.90 Esophagitis, unspecified without bleeding; R19.7 Diarrhea, unspecified; R10.9 Unspecified abdominal pain; R23.2 Flushing; R06.02 Shortness of breath
CPT/HCPCS: 36415; 82180; 82306; 82607; 82728; 82746; 82784; 82941; 82947; 83088; 83520; 83525; 83835; 84207; 84425; 84446; 84590; 84591; 84597; 84630; 84681; 86003; 86140; 86704; 86706; 86709; 86803; 87340; 99212

== ENCOUNTER 2023-01-28 11:31 | Outpatient (AMB) | payer OTHER, SELFPAY ==
--- NOTE | 2023-01-28 11:34 | MHC.OFFVIS ---
Intake Vital Signs 01/28/23 11:35 Height 5 ft 9 in Weight 291 lb 0.163 oz BMI 43.0 Blood Pressure Location Lt brachial Position Sitting Intake Visit Reasons: abdominal pain Intake Note: Marko presents in the office as a follow up for abdominal pains. CC: He states that his stomach is all messed up and he is scheduled for a colonoscopy on Sat. Allergies No Known Allergies Allergy (Verified 01/28/23 11:37) HPI abdominal pain HPI Details 42 yr old m w/ CAD s/p stents, eczema, HLP, and HTN here for f/u RECAP: Had seen Annie before for: abdo cramping postprandial diarrhea GERD pos FH of CAD TESTS: Negative H pylori, Pancreatic elastase was normal.? H pylori negative.? Normal transglutaminase, nml triglyceride nml elastase LABS: 12/2022-- initial elevated lipase. then nml, nml HGb and BMP, LFT IMAGING: MRI abdomen: 11/2021- nml contour to pancreas EGD 03/2022- Severe esophagitis INTERIM: He has EGD and colonoscopy coming up when he empties himself he feels flushed he can get a rash like ring worm periodically cramping in LUQ and goes downwards tries to watch what he eats he feels sugar related foods and ethanol helps pain and diarrhea he use to get cortisone injections for bone cyst in the past he is unsure if he gets palpitations smokes cannabis he denies satiety diarrhea is greasy, sometimes floats, smells bad but he has to spend 45 mins sometimes waiting for the stool to come out no blood no FH of pancreatic disease been checked for sleep apnea and was told negative denies taking nsaids EXAM: GENERAL: The patient is obese VITAL SIGNS:see workflow HEENT: Nonicteric sclerae, PERRLA, EOMI. Oropharynx clear. Moist mucous membranes. Conjunctivae appear well perfused. No thyroid mass. CHEST: Chest wall is nontender. HEART: Regular rate and rhythm without murmurs. LUNGS: Clear to auscultation bilaterally. ABDOMEN: Soft, positive bowel sounds, nontender, no organomegaly.no flank tenderness SKIN: No rash, no excessive bruising, petechiae, or purpura. NEUROLOGIC: Cranial nerves II-XII intact without motor/sensory deficit. psych: nml affect A?P: 1/ Assortment of sx as above, wide differential, IBD, high vagal tone, hormone secreting tumours, food allergies, intolerances, PUD nutritional defc PLAN: 1/ EGD, colo as planned--EGd to recheck for healing and exclude barretts esophagus ?? 2/ check hep serologies, Ig level s 3/ he will take a pic of the rash whenever it comes, PFSH Medical History CAD (coronary artery disease) Dyslipidemia Elevated lipase GERD (gastroesophageal reflux disease) HTN (hypertension) Hx of ventricular tachycardia IBS (irritable bowel syndrome) Myocardial infarction On anticoagulant therapy Surgical History History of esophagogastroduodenoscopy (EGD) History of heart artery stent History of surgery on arm Hx of appendectomy Hx of bone graft Hx of tonsillectomy Family History Father Heart problem HTN (hypertension) Paternal Grandfather HTN (hypertension) Social History Housing: House Are you a primary early breastfeeding care specialist to a significant other at home: No Do you presently have visiting nurse or other home services: No Alcohol intake: current Alcohol intake frequency: holidays/special occasions only Patient Tobacco Use Status: Former Tobacco user Quit Date: 2004 Tobacco use type: Cigarette Years Smoked: 11 years e-Cigarette/Vaping Use: Never Used Second Hand Smoke Exposure: No Use of substances other than those prescribed or required for medical reasons: Yes Substance Use Frequency: Daily Have you been hit, kicked, punched, or otherwise hurt by someone within the past year? 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) Cognitive needs: No Hearing needs: No Vision needs: No Physical Exam Vital Signs: BMI result Body Mass Index 43.0 Assessment & Plan Assessment & Plan (1) Abdominal pain: Code(s): R10.9 - Unspecified abdominal pain (2) Flushing: Code(s): R23.2 - Flushing (3) Shortness of breath: Code(s): R06.02 - Shortness of breath (4) Esophagitis determined by endoscopy: Code(s): K20.90 - Esophagitis, unspecified without bleeding Orders: Orders Vitamin B12 and Folate 01/28/23 R06.02 - Shortness of breath, R10.9 - Unspecified abdominal pain, R23.2 - [place]ushing C Reactive Protein 01/28/23 R06.02 - Shortness of breath, R10.9 - Unspecified abdominal pain, R23.2 - [place] Ferritin 01/28/23 R06.02 - Shortness of breath, R10.9 - Unspecified abdominal pain, R23.2 - [place] Vitamin B3 (Niacin) 01/28/23 R06.02 - Shortness of breath, R10.9 - Unspecified abdominal pain, R23.2 - [place] Vitamin E 01/28/23 R06.02 - Shortness of breath, R10.9 - Unspecified abdominal pain, R23.2 - [place] Vitamin A 01/28/23 R06.02 - Shortness of breath, R10.9 - Unspecified abdominal pain, R23.2 - [place] Vitamin B1 01/28/23 R06.02 - Shortness of breath, R10.9 - Unspecified abdominal pain, R23.2 - [place] Vitamin B5 (Pantothenic Acid) 01/28/23 R06.02 - Shortness of breath, R10.9 - Unspecified abdominal pain, R23.2 - [place] Vitamin B6 01/28/23 R06.02 - Shortness of breath, R10.9 - Unspecified abdominal pain, R23.2 - [place] Vitamin C 01/28/23 R06.02 - Shortness of breath, R10.9 - Unspecified abdominal pain, R23.2 - [place] Vitamin D 25-OH Total 01/28/23 R06.02 - Shortness of breath, R10.9 - Unspecified abdominal pain, R23.2 - [place] Vitamin K1 01/28/23 R06.02 - Shortness of breath, R10.9 - Unspecified abdominal pain, R23.2 - [place] Zinc 07/10/23 R06.02 - Shortness of breath, R10.9 - Unspecified abdominal pain, R23.2 - [place] Immunoglobulins,IgG IgA IgM 01/28/23 R06.02 - Shortness of breath, R10.9 - Unspecified abdominal pain, R23.2 - [place] C Peptide 01/28/23 R06.02 - Shortness of breath, R10.9 - Unspecified abdominal pain, R23.2 - [place] Gastrin 01/28/23 R06.02 - Shortness of breath, R10.9 - Unspecified abdominal pain, R23.2 - [place] Insulin 01/28/23 R06.02 - Shortness of breath, R10.9 - Unspecified abdominal pain, R23.2 - [place] Rast Allergen 01/28/23 R06.02 - Shortness of breath, R10.9 - Unspecified abdominal pain, R23.2 - [place] Hepatitis A,B,C Profile 01/28/23 R06.02 - Shortness of breath, R10.9 - Unspecified abdominal pain, R23.2 - [place] Histamine Plasma 01/28/23 R10.9 - Unspecified abdominal pain, R23.2 - [place] Tryptase 01/28/23 R10.9 - Unspecified abdominal pain, R19.7 - Diarrhea, unspecified, R23.2 - [place] Metanephrines, Plasma 01/28/23 R10.9 - Unspecified abdominal pain, R23.2 - Flushing Coding Level of Care Code Est Pt Level 4 (85608) Diagnoses Abdominal pain R10.9 Flushing R23.2 Shortness of breath R06.02 Esophagitis determined by endoscopy K20.90
[2023-01-28 11:35] VITALS: BMI 43.0
== END 2023-01-28 13:39 | disposition home or self-care (01) ==
PROVIDERS: PCP Internal Medicine; Visit Provider Internal Medicine Gastroenterology
DX: R10.9 Unspecified abdominal pain (principal); R23.2 Flushing; R06.02 Shortness of breath; K20.90 Esophagitis, unspecified without bleeding
CPT/HCPCS: 99214

== ENCOUNTER 2023-01-30 11:17 | Day surgery (SDC) | payer OTHER, SELFPAY ==
[2023-01-28 14:57] VITALS: BMI 43.0
[2023-01-30 11:43] VITALS: BP 129/78; PULSE 70; RESP 18; TEMP 36.8; O2SAT 97
[2023-01-30] MEDS: Lactated Ringers 1,000 ML 100 ML IVCONT (12:04)
--- NOTE | 2023-01-30 12:08 | MHC.SHP ---
Pre-Procedural Eval Section A Date of Service: 01/30/23 The patient is an INPATIENT: No The History & Physical has been completed within 30 days and I have reviewed it.: Yes Section B Chief Complaint: diarrhea, abdominal pain Allergies: Allergies Allergy/AdvReac Type Severity Reaction Status Date / Time No Known Allergies Allergy Verified 01/28/23 11:37 Plan Diagnosis/Plan: Unchanged I have reviewed the history and physical and performed a pertinent physical examination on my patient. No changes have occurred unless specified. EGD and colonoscopy Time Spent With Patient Time: Total time managing care of this patient today ____ minutes.
--- NOTE | 2023-01-30 12:09 | P.OP_ITS ---
Operative Note Operative Note Date of Service: 01/30/23 Narrative: Operative Information Procedure Description: EGD, Colonoscopy Indication: post prandial diarrhea, abdominal pain Anesthesia: MAC FLEXIBLE TRANSORAL UPPER GASTROINTESTINAL ENDOSCOPY AND COLONOSCOPY PROCEDURE NOTE UPPER ENDOSCOPY Consent: Indications for the procedure and potential complications of bleeding, perforation, reaction to medications and missed diagnosis were discussed with the patient and informed consent was obtained. Instrument: Olympus GIF H 190 J mid size upper endoscope Monitoring: Vital signs and clinical assessment, continuous EKG monitoring, Pulse oximetry, Carbon Dioxide monitoring and blood pressure monitoring were done throughout the procedure. Procedure: The patient was placed in the left lateral decubitis position and pre-procedure medications were administered and a bite block was placed. The endoscope was inserted into the mouth and advanced under direct vision to the third part of duodenum. A careful inspection was made as the upper endoscope was withdrawn including a retroflexed examination of the proximal stomach; Findings and interventions are described below. Findings: Larynx:normal Esophagus: GE junction at 40 cm, diaphragm hiatus at 40 cm, normal mucosa- irregular z line, bx taken Stomach: Erosions and erythema at the antrum. Biopsies were obtained. Grade 2 flap valve on retroflexed examination of the cardia. Duodenum: Normal bulb and descending duodenum, bx taken Intervention: Biopsies as noted above COLONOSCOPY Instrument: Olympus variable stiffness ADULT scope 190L Colonoscopy Monitoring: Vital signs and clinical assessment, continuous EKG monitoring, Pulse oximetry, Carbon Dioxide monitoring and blood pressure monitoring were done throughout the procedure. Colon withdrawal time was 9 minutes. Procedure: The patient was placed in the left lateral decubitis position and pre-procedure medications were administered. After a digital rectal examination of the ano-rectum, the video colonoscope was inserted into the rectum and advanced through the colon to the cecum/TI. The colonoscope was slowly withdrawn in a retrograde panoramic fashion and the colon mucosa was carefully examined including a retroflexed view of the rectum. Findings and interventions are described below. Procedure Difficulty:easy Findings: Terminal Ileum- focal erosive ileitis, bx taken Random bx taken from right, left and rectal areas Cecum:normal Ascending Colon: normal Transverse Colon -normal Descending Colon:normal Sigmoid Colon: normal Rectum: Retroflexion with mediuma sized internal hemorrhoids, grade I Anorectum - normal Colon preparation: [place] Bowel Preparation Scale Right colon; 2 Transverse colon: 2 Left colon; 2 (0 = Unprepared colon segment with mucosa not seen due to solid stool that cannot be cleared. 1 = Portion of mucosa of the colon segment seen, but other areas of the colon segment not well seen due to staining, residual stool and/or opaque liquid. 2 = Minor amount of residual staining, small fragments of stool and/or opaque liquid, but mucosa of colon segment seen well. 3 = Entire mucosa of colon segment seen well with no residual staining, small fragments of stool or opaque liquid) Impression and Post Procedure Diagnosis: Endoscopy Findings: erosive gastritis Colonoscopy Findings: erosive terminal ileitis internal hemorrhoids Plan: Await Pathology results Repeat Colonoscopy in 10 years or earlier if clinically indicated High fiber diet leaflet avoid straining at stool, epsom salts and sitz bath, anusol supps or cream confirm NSAID hx, might need Cte Above findings were reviewed with the patient and relevant handouts were provided if indicated.
--- NOTE | 2023-01-30 12:12 | P.CONAN_ITS ---
[facility] Active Problems Active Problems: All Active Problems (Updated 01/28/23 @ 12:27 by Rakan Nagy MD) Flushing (Acute) Abdominal pain (Acute) Epididymal cyst (Acute) Hydrocele (Acute) Lump in scrotum (Acute) Allergies (Acute) Tinea (Acute) Eczematous dermatitis (Acute) Establishing care with new doctor, encounter for (Acute) Coronary artery disease (Acute) History of coronary artery stent placement (Acute) Obesity (BMI 30-39.9) (Acute) Blurring of vision (Acute) Contusion of left knee (Acute) Contusion of arm (Acute) Essential hypertension (Acute) Encounter for general adult medical examination with abnormal findings (Acute) Eczema (Acute) Shortness of breath (Acute) Elevated lipase (Acute) Past Medical History Medical History CAD (coronary artery disease) Dyslipidemia Elevated lipase GERD (gastroesophageal reflux disease) HTN (hypertension) Hx of ventricular tachycardia IBS (irritable bowel syndrome) Myocardial infarction On anticoagulant therapy Family History Family History Father Heart problem HTN (hypertension) Paternal Grandfather HTN (hypertension) Family history of problems with anesthesia: No Surgical History Surgical History History of esophagogastroduodenoscopy (EGD) History of heart artery stent History of surgery on arm Hx of appendectomy Hx of bone graft Hx of tonsillectomy History of Problems with Anesthesia: No Social History Social History Housing: House Are you a primary home child care provider to a significant other at home: No Do you presently have visiting nurse or other home services: No Alcohol intake: current Alcohol intake frequency: holidays/special occasions only Patient Tobacco Use Status: Former Tobacco user Quit Date: 2004 Tobacco use type: Cigarette Years Smoked: 11 years e-Cigarette/Vaping Use: Never Used Second Hand Smoke Exposure: No Use of substances other than those prescribed or required for medical reasons: Yes Substance Use Frequency: Daily Have you been hit, kicked, punched, or otherwise hurt by someone within the past year? 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) Cognitive needs: No Hearing needs: No Vision needs: No Meds Allergies Allergy/AdvReac Type Severity Reaction Status Date / Time No Known Allergies Allergy Verified 01/28/23 11:37 Active Medications: Current Medications Lactated Ringer's (Lr) 1,000 mls @ 100 mls/hr IVCONT .Q10H ISA Last Admin: 01/30/23 12:04 Dose: 100 mls/hr Home Medications Medication Instructions Recorded Confirmed Last Taken Type aspirin 81 mg chewable tablet 1 tab PO DAILY 08/02/20 01/30/23 01/29/23 History atorvastatin 80 mg tablet 80 mg PO BEDTIME 08/02/20 01/28/23 Unknown History carvedilol 6.25 mg tablet 6.25 mg PO BID 08/02/20 01/28/23 Unknown History ezetimibe 10 mg tablet 10 mg PO DAILY 08/02/20 01/28/23 Unknown History lisinopril 20 mg tablet 20 mg PO DAILY 08/02/20 01/28/23 Unknown History nitroglycerin 0.4 mg sublingual 0.4 mg sublingual .Q5MINS PRN 03/03/21 01/28/23 09/19/22 08:00 History tablet Chest Pain Exam Exam Date and Time: January 30, 2023 1212 Height,Weight and Vital Signs: Height 5 ft 9 in Weight 131.995 kg Last Vital Signs Temp 98.2 F 01/30/23 11:43 Pulse 70 01/30/23 11:43 Resp 18 01/30/23 11:43 BP 129/78 01/30/23 11:43 Pulse Ox 97 01/30/23 11:43 O2 Del Method Room Air 01/30/23 11:43 Airway Mallampati Class: III TM Dist: >3cm Neck ROM: Full Assessment and Plan Assessment Anesthesia Assessment: Anesthesia Plan Discussed and Chart Reviewed Final Anesthetic Review Family History of Problems with Anesthesia: No History of Problems with Anesthesia: No NPO: Yes ASA Class: III Final Preanesthetic Review: No Changes in Pt Med Stat, Meds/Allgs Chart Reviewed, Consent Obtained/Reviewed and Anes Risks/Benef Reviewed Patient Risk: Intermediate Procedure Risk: Low Anesthetic Plan Anesthetic Plan: MAC: Disposition: Standard PACU
[2023-01-30 13:06] VITALS: BP 147/98; PULSE 84; RESP 16; TEMP 36.8; O2SAT 99
[2023-01-30 13:21] VITALS: BP 150/103; PULSE 74; RESP 16; TEMP 36.8; O2SAT 96
== END 2023-01-30 13:58 | disposition home or self-care (01) ==
PROVIDERS: PCP Internal Medicine; Visit Provider Internal Medicine Gastroenterology
PROC: (CPT 45380; principal; 2023-01-30 13:30)
DX: K29.60 Other gastritis without bleeding (principal); K20.90 Esophagitis, unspecified without bleeding; K63.89 Other specified diseases of intestine; K52.9 Noninfective gastroenteritis and colitis, unspecified; K64.0 First degree hemorrhoids; K44.9 Diaphragmatic hernia without obstruction or gangrene; I10 Essential (primary) hypertension; K21.9 Gastro-esophageal reflux disease without esophagitis; E78.5 Hyperlipidemia, unspecified; I25.10 Atherosclerotic heart disease of native coronary artery without angina pectoris; I25.2 Old myocardial infarction; Z95.5 Presence of coronary angioplasty implant and graft; E66.9 Obesity, unspecified; Z68.41 Body mass index [BMI] 40.0-44.9, adult; Z79.01 Long term (current) use of anticoagulants; Z87.891 Personal history of nicotine dependence; Z79.82 Long term (current) use of aspirin; Z79.899 Other long term (current) drug therapy
CPT/HCPCS: 45380; 43239; 88305; 88342

== ENCOUNTER → 2023-01-30 11:17 | Outpatient (BNV) | payer OTHER, SELFPAY | PROVIDERS: PCP Internal Medicine; Visit Provider Internal Medicine Gastroenterology | DX: K59.1 Functional diarrhea (principal); R10.9 Unspecified abdominal pain; K29.60 Other gastritis without bleeding; K64.0 First degree hemorrhoids; K52.89 Other specified noninfective gastroenteritis and colitis | CPT/HCPCS: 43239; 45380 ==

== ENCOUNTER 2023-02-06 15:25 | Outpatient (AMB) | payer OTHER, SELFPAY ==
--- NOTE | 2023-02-06 15:28 | A.OFFPC_ITS ---
Vital Signs 02/06/23 15:29 Height 5 ft 9 in Weight 294 lb 2 oz BMI 43.4 BP 146/78 H Blood Pressure Location Rt brachial Position Sitting Pulse 84 Pulse Source Pulse Oximeter Pulse Oximetry (%) 96 Oxygen Delivery Method Room Air Intake Visit Reasons: Annual PE Allergies No Known Allergies Allergy (Verified 02/06/23 15:28) Medication List - Last Reconciled 02/06/23 by Aron Alexandra MD aspirin 1 tab PO DAILY atorvastatin 80 mg PO BEDTIME betamethasone, augmented 0.05 % 1 appl topical BID PRN bisacodyl (Dulcolax (bisacodyl)) 10 mg (2 x 5 mg) PO ONCE 1 day carvedilol 6.25 mg PO BID ezetimibe 10 mg PO DAILY lisinopril 20 mg PO DAILY nitroglycerin 0.4 mg sublingual .Q5MINS PRN pantoprazole 40 mg PO DAILY polyethylene glycol 3350 (Miralax) 238 grams PO ONCE 1 day Tobacco use date assessed: 02/06/23 Dental Screening Dental Screen Date: 02/06/23 Did you have a dental problem in the last 6 months where you did not have access to dental care?: No Was dental information given to patient?: No HPI Annual PE HPI Details Patient is 42-year-old gentleman came in today for physical exam Patient have coronary artery disease and have history of 4 stents placed because of premature coronary artery disease, strong family history of heart disease. He is seeing [facility] Cardiology however I have no notes. All his medications are either through cardiology office for Gastroenterology Office Patient is seeing Dr Nagy for abdominal pain and diarrhea and had a colonoscopy done. Workup is still in progress patient says that he has appointment next month to go over his test reports. He also tells me that once he was seeing Endocrinology and was being tested for adrenal gland problem He will get [place] medical records and forward them to me so we can proceed with next step. As he did not follow through with the testing. He is complaining of blurring of vision and is in need for eye exam. BMI is elevated at 43.4 need to lose weight Patient also have a chronic contact dermatitis around his fingertips and is r equesting a cream which did help him however the rash keep coming back he is not sure what he is sensitive to. [facility] Medical History CAD (coronary artery disease) Dyslipidemia Elevated lipase GERD (gastroesophageal reflux disease) HTN (hypertension) Hx of ventricular tachycardia IBS (irritable bowel syndrome) Myocardial infarction On anticoagulant therapy Surgical History History of esophagogastroduodenoscopy (EGD) History of heart artery stent History of surgery on arm Hx of appendectomy Hx of bone graft Hx of tonsillectomy Family History Father Heart problem HTN (hypertension) Paternal Grandfather HTN (hypertension) Social History Housing: House Are you a primary medicare specialist to a significant other at home: No Do you presently have visiting nurse or other home services: No Alcohol intake: current Alcohol intake frequency: holidays/special occasions only Patient Tobacco Use Status: Former Tobacco user Quit Date: 2004 Tobacco use type: Cigarette Years Smoked: 11 years e-Cigarette/Vaping Use: Never Used Second Hand Smoke Exposure: No service: No 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 How often do you have a drink containing alcohol?: Never 3. How often do you have six or more drinks on one occasion?: Never Total Score: 0 Score Reviewed/Action Taken: Yes Review of Systems Const Denies chills, Denies fever(s) and Denies headache(s) ENT Denies headache(s), Denies nasal discharge, Denies nasal obstruction, Denies odynophagia and Denies sinus pain Card Denies chest pain at rest and Denies chest pain with activity Resp Denies cough and Denies hemoptysis GI Denies odynophagia, Denies vomiting and Denies hematemesis Reports as per HPI Musc Denies abnormal gait Skin/Breast Reports as per HPI Neuro Denies Neuro-related abnormal movements, Denies Abnormal speech present, Denies abnormal gait, Denies headache(s) and Denies Sensory deficit (Neuro) Psych Denies mood swings and Denies paranoia Endo Reports as per HPI Dandre/Lymph Reports as per HPI Aller/Immun Reports as per HPI Physical exam (Primary Care) Vital Signs: Last Vital Signs Pulse 84 02/06/23 15:29 BP 146/78 H 02/06/23 15:29 Pulse Ox 96 02/06/23 15:29 Oxygen Delivery Method Room Air 02/06/23 15:29 BMI result Body Mass Index 43.4 Tobacco/Smoking Status: Tobacco use Status Tobacco use date assessed 02/06/23 02/06/23 15:34 Patient Tobacco Use Status Former Tobacco user 02/06/23 15:34 Tobacco use type Cigarette 02/06/23 15:34 e-Cigarette/Vaping Use Never Used 02/06/23 15:34 Thrive Assessment: Date of Thrive Assessment Date Thrive assessed 04/28/21 02/06/23 15:34 Const General: cooperative, comfortable and no acute distress Orientation/consciousness: patient oriented x3 HENMT Head: Yes normocephalic and Yes atraumatic Eyes Pupils: Equal, round and reactive pupils present EOM: EOMs intact bilaterally Neck Neck: Yes supple and No lymphadenopathy Thyroid: Thyroid normal Lymphatic: no lymphadenopathy noted Resp Effort & Inspection: normal respiratory effort and able to speak in complete sentences Auscultation: clear to auscultation bilaterally Cardio Heart sounds: S1 normal heart sound present and S2 normal heart sound present GI Palpation (GI): Soft to palpation and nontender Auscultation: normal bowel sounds General: Yes no CVA tenderness Back/Spine/Pelvis Back: no CVA tenderness Skin General skin exam: elasticity normal and turgor normal Neuro General: patient oriented x3 and gait normal Cranial nerves: Yes Equal, round and reactive pupils present Speech: No Abnormal speech present Sensory Exam: No Sensory deficit (Neuro) Coordination: tandem gait normal and Romberg test negative Extrem General: Yes normal exam except as noted and No edema Assessment and Plan Assessment & Plan (1) Encounter for general adult medical examination with abnormal findings: Code(s): Z00.01 - Encounter for general adult medical examination with abnormal findings (2) Blurring of vision: Code(s): H53.8 - Other visual disturbances (3) Eczematous dermatitis: Code(s): L30.9 - Dermatitis, unspecified Qualifiers: Eczema type: unspecified Qualified Code(s): L30.9 - Dermatitis, unspecified (4) Coronary artery disease: Code(s): I25.10 - Atherosclerotic heart disease of [place] coronary artery without angina pectoris (5) Essential hypertension: Code(s): I10 - Essential (primary) hypertension (6) Morbid obesity due to excess calories: Code(s): E66.01 - Morbid (severe) obesity due to excess calories Plan Patient is 42-year-old gentleman came in today for physical exam Patient have coronary artery disease and have history of 4 stents placed because of premature coronary artery disease, strong family history of heart disease. He is seeing [facility] Cardiology however I have no notes. All his medications are either through cardiology office for Gastroenterology Office Patient is seeing Dr Nagy for abdominal pain and diarrhea and had a colonoscopy done. Workup is still in progress patient says that he has appointment next month to go over his test reports. He also tells me that once he was seeing Endocrinology and was being tested for adrenal gland problem He will get [place] medical records and forward them to me so we can proceed with next step. As he did not follow through with the testing. He is complaining of blurring of vision and is in need for eye exam. BMI is elevated at 43.4 need to lose weight Patient also have a chronic contact dermatitis around his fingertips and is requesting a cream which did help him however the rash keep coming back he is not sure what he is sensitive to. Orders: Referrals Ophthalmology Referral H53.8 - Other visual disturbances Medications: Refilled betamethasone, augmented 0.05 % 1 appl topical BID PRN 50 grams 3RF itching Coding Level of Care Code Est Pt Prev Care 40-64y(14998) Diagnoses Encounter for general adult medical examination with abnormal findings Z00.01 Blurring of vision H53.8 Eczematous dermatitis L30.9 Eczema type: unspecified Coronary artery disease I25.10 Essential hypertension I10 Morbid obesity due to excess calories E66.01
[2023-02-06 15:29] VITALS: BP 146/78; PULSE 84; O2SAT 96; BMI 43.4
== END 2023-02-06 16:45 | disposition home or self-care (01) ==
PROVIDERS: Visit Provider Internal Medicine
DX: Z00.01 Encounter for general adult medical examination with abnormal findings (principal); I10 Essential (primary) hypertension; E66.01 Morbid (severe) obesity due to excess calories; Z68.41 Body mass index [BMI] 40.0-44.9, adult; H53.8 Other visual disturbances; L30.9 Dermatitis, unspecified; I25.10 Atherosclerotic heart disease of native coronary artery without angina pectoris
CPT/HCPCS: 99396

== ENCOUNTER 2023-03-11 11:50 | Outpatient (AMB) | payer OTHER, SELFPAY ==
--- NOTE | 2023-03-11 11:52 | MHC.OFFVIS ---
Intake Vital Signs 03/11/23 11:54 Height 5 ft 9 in Weight 291 lb 0.163 oz BMI 43.0 BP 99/57 L Blood Pressure Location Lt brachial Pulse 86 Intake Visit Reasons: follow up Intake Note: Marko presents in the office as a follow up. CC: He states he had a colonoscopy since his last visit with an EGD/ Dcs Engineer Required: No Allergies No Known Allergies Allergy (Verified 03/11/23 11:58) HPI follow up HPI Details RECAP: Had seen Annie before for: abdo cramping postprandial diarrhea GERD pos FH of CAD TESTS: Negative H pylori,? Pancreatic elastase was normal.? H pylori negative.? Normal transglutaminase, nml triglyceride nml? elastase LABS: 12/2022-- initial elevated lipase. then nml, nml HGb and BMP, LFT IMAGING: MRI abdomen: 11/2021- nml contour to pancreas EGD 03/2022- Severe esophagitis EGD?colo: 02/10 erosive ileitis, gastritis, esophagus was much better INTERIM: Reviewed endoscopy results, not been taking nsaids has joint pains and stiffness worse in mornings ongoing issues with diarrhea and pain, better with sugar foods reviewed labs with high insulin and c peptide, and low nml gluc EXAM: GENERAL: The patient is obese VITAL SIGNS:see workflow HEENT: Nonicteric sclerae, PERRLA, EOMI. Oropharynx clear. Moist mucous membranes. Conjunctivae appear well perfused. No thyroid mass. CHEST: Chest wall is nontender. HEART: Regular rate and rhythm without murmurs. LUNGS: Clear to auscultation bilaterally. ABDOMEN: Soft, positive bowel sounds, nontender, no organomegaly.no flank tenderness SKIN: No rash, no excessive bruising, petechiae, or purpura. NEUROLOGIC: Cranial nerves II-XII intact without motor/sensory deficit. psych: nml affect A?P: 1/ Assortment of sx as above, wide differential, IBD, high vagal tone, hormone secreting tumours, food allergies, intolerances, PUD nutritional defc PLAN: 1/ CTe-if neg then capsule to w/u for crohns 2/ refer endocrinology r/o insulinoma? ? PFSH Medical History (Updated 03/11/23 @ 12:43 by Rakan Nagy MD) CAD (coronary artery disease) Dyslipidemia Elevated lipase GERD (gastroesophageal reflux disease) HTN (hypertension) Hx of ventricular tachycardia IBS (irritable bowel syndrome) Myocardial infarction On anticoagulant therapy Surgical History (Updated 03/11/23 @ 11:59 by GABRIEL Weaver) History of esophagogastroduodenoscopy (EGD) History of heart artery stent History of surgery on arm Hx of appendectomy Hx of bone graft Hx of colonoscopy Hx of tonsillectomy Family History Father Heart problem HTN (hypertension) Paternal Grandfather HTN (hypertension) Social History Housing: House Are you a primary foster care case manager to a significant other at home: No Do you presently have visiting nurse or other home services: No Alcohol intake: current Alcohol intake frequency: holidays/special occasions only Patient Tobacco Use Status: Former Tobacco user Quit Date: 2004 Tobacco use type: Cigarette Years Smoked: 11 years e-Cigarette/Vaping Use: Never Used Second Hand Smoke Exposure: No service: No 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) Cognitive needs: No Hearing needs: No Vision needs: No Physical Exam Vital Signs: Last Vital Signs Pulse 86 03/11/23 11:54 BP 99/57 L 03/11/23 11:54 BMI result Body Mass Index 43.0 Assessment & Plan Assessment & Plan (1) Ileitis, regional: Code(s): K50.00 - Crohn's disease of small intestine without complications (2) Erosive gastritis: Code(s): K29.60 - Other gastritis without bleeding Orders: Orders CT enterography Today K29.60 - Other gastritis without bleeding, K50.00 - Crohn's disease of small intestine without complications, R10.33 - Periumbilical pain Coding Level of Care Code Est Pt Level 4 (31229) Diagnoses Ileitis, regional K50.00 Erosive gastritis K29.60
[2023-03-11 11:54] VITALS: BP 99/57; PULSE 86; BMI 43.0
== END 2023-03-11 12:51 | disposition home or self-care (01) ==
PROVIDERS: PCP Internal Medicine; Visit Provider Internal Medicine Gastroenterology
DX: K50.00 Crohn's disease of small intestine without complications (principal); K29.60 Other gastritis without bleeding
CPT/HCPCS: 99214

== ENCOUNTER → 2023-03-11 11:50 | Outpatient (BNVA) | payer OTHER, SELFPAY | PROVIDERS: PCP Internal Medicine; Visit Provider Internal Medicine Gastroenterology | DX: R10.33 Periumbilical pain (principal); K50.00 Crohn's disease of small intestine without complications; K29.60 Other gastritis without bleeding | CPT/HCPCS: 99212 ==

== ENCOUNTER 2023-04-12 07:17 | Outpatient (REF) | payer OTHER, SELFPAY ==
--- NOTE | ~2023-04-12 | CT_ITS ---
EXAMINATION: CT ENTEROGRAPHY ABDOMEN AND PELVIS WITH CONTRAST CLINICAL INFORMATION: Periumbilical pain COMPARISON: Previous CT September 2021 and MR of the abdomen November 2021 TECHNIQUE: Study performed with oral VoLumen (1350 mL) and 480 mL of water to distend the abdomen. The patient was injected with 85 mL Omnipaque 350 intravenous contrast which was administered without adverse effect. Coronal and sagittal reformatted images were obtained at the technologist's workstation. This CT examination was performed using dose optimization techniques as appropriate, variously including the following: *Automated exposure control *Adjustment of mA and/or kV according to patient size (this includes techniques or standardized protocols for targeted exams where dose is matched to indication/reason for exam; i.e. extremities or head) *Use of iterative reconstruction technique DLP: 852 mGy-cm FINDINGS: GASTROINTESTINAL FINDINGS: Stomach: Well-distended and normal in appearance. Small intestine: Satisfactorily distended and normal in appearance. Large intestine: Well-distended. Mild diverticulosis. Otherwise normal in appearance. No perirectal changes demonstrated. The appendix is not identified. No evidence of appendicitis. Additional findings: No abnormal enhancement of the vasa recta or significant mesenteric or retroperitoneal lymphadenopathy is seen. No abdominal abscess or fistulous tract demonstrated. ABDOMINAL AND PELVIC CT FINDINGS: Liver, gallbladder, biliary tract: Normal liver and bile ducts. Gallstones. Pancreas: Normal Spleen: Normal Adrenal glands and kidneys: Small right renal cysts. No imaging follow-up recommended. Ureters and bladder: Normal Lymphovascular structures: Normal Bones: Mild degenerative changes. Lung bases: 3 mm left lower lobe nodule axial image 16 series 3, stable Small umbilical fat. CT/CT enterography IMPRESSION: Small umbilical hernia containing fat. Mild diverticulosis colon. No evidence of diverticulitis. Gallstones.
[2023-04-12] MEDS: Sorbitol/Mannit/Xanth Imaging 500 ML LIQUID 1500 ML PO (08:39)
[2023-04-12] MEDS: iohexoL 350 MG/ML 100 ML INFUS..BTL IV (08:40)
== END 2023-04-12 07:18 | disposition home or self-care (01) ==
LOC: HO.CT 07:17
PROVIDERS: PCP Internal Medicine; Visit Provider Internal Medicine Gastroenterology
DX: R10.33 Periumbilical pain (principal); K50.00 Crohn's disease of small intestine without complications; K29.60 Other gastritis without bleeding
CPT/HCPCS: 74177; Q9967

== ENCOUNTER 2023-04-29 09:10 | Outpatient (AMB) | payer OTHER, SELFPAY ==
--- NOTE | 2023-04-29 09:42 | MHC.OFFWIV ---
Intake Vital Signs 04/29/23 09:43 Weight 298 lb BP 110/70 Blood Pressure Location Lt brachial Position Sitting Pulse 80 Pulse Source Pulse Oximeter Temp 97.4 F Temp Source Temporal Artery Scan Pulse Oximetry (%) 96 Oxygen Delivery Method Room Air Intake Visit Reasons: EP Cough, Wheezing (masked) Intake Note: Patient here for possible bronchitis, pt states it started and has progressed. he has been experiencing cough, sob, wheezing. Patient Tobacco Use Status: Former Tobacco user Quit Date: 2004 Allergies No Known Allergies Allergy (Verified 04/29/23 10:29) Do you need a note to return to daycare/school/sports/work: No HPI EP Cough, Wheezing (masked) HPI Details Patient presents for a sick visit. Reporting symptoms of sinus congestion, sore throat and difficulty swallowing. Low-grade fever. No family member is sick. No recent travel. Patient reports symptoms of malaise and fatigue. [facility] Medical History On anticoagulant therapy Hx of ventricular tachycardia GERD (gastroesophageal reflux disease) IBS (irritable bowel syndrome) Dyslipidemia Myocardial infarction HTN (hypertension) CAD (coronary artery disease) Elevated lipase Surgical History Hx of colonoscopy History of esophagogastroduodenoscopy (EGD) Hx of tonsillectomy Hx of bone graft History of heart artery stent History of surgery on arm Hx of appendectomy Family History Father Heart problem HTN (hypertension) Paternal Grandfather HTN (hypertension) Social History Housing: House Are you a primary date night caregiver to a significant other at home: No Do you presently have visiting nurse or other home services: No Alcohol intake: current Alcohol intake frequency: holidays/special occasions only Patient Tobacco Use Status: Former Tobacco user Quit Date: 2004 Tobacco use type: Cigarette Years Smoked: 11 years e-Cigarette/Vaping Use: Never Used Second Hand Smoke Exposure: No service: No Current occupational status: employed Cognitive needs: No Hearing needs: No Vision needs: No Physical Exam Vital Signs: Last Vital Signs Temp 97.4 F 04/29/23 09:43 Pulse 80 04/29/23 09:43 BP 110/70 04/29/23 09:43 Pulse Ox 96 04/29/23 09:43 Oxygen Delivery Method Room Air 04/29/23 09:43 Const General: cooperative and healthy appearing Nutritional Appearance: well nourished Orientation/consciousness: patient oriented x3 Limitations: no limitations HEENT Head: Yes normal to inspection Eyes General: appearance normal, both eyes and all related structures Neck Neck: Yes normal visual inspection Chest Chest palpation & inspection: normal palpation of entire chest wall Resp Effort & Inspection: normal respiratory effort Neuro General: patient oriented x3 Assessment & Plan Assessment & Plan (1) Acute bronchitis: Code(s): J20.9 - Acute bronchitis, unspecified Qualifiers: Bronchitis organism: unspecified organism Qualified Code(s): J20.9 - Acute bronchitis, unspecified Plan: Antibiotics ordered. Increase fluid intake. Tylenol for aches and pains. If symptoms worsen, follow-up here for a recheck. Coding Level of Care Code Est Pt Level 3 (12234) Diagnoses Acute bronchitis, unspecified organism J20.9 Bronchitis organism: unspecified organism
[2023-04-29 09:43] VITALS: BP 110/70; PULSE 80; TEMP 36.3; O2SAT 96
== END 2023-04-29 10:25 | disposition home or self-care (01) ==
LOC: HO.HMGWI 09:10
PROVIDERS: PCP Internal Medicine
DX: J20.9 Acute bronchitis, unspecified (principal)
CPT/HCPCS: 99213

== ENCOUNTER 2023-08-26 12:37 | Outpatient (AMB) | payer OTHER, SELFPAY ==
--- NOTE | 2023-08-26 12:41 | A.OFFVIS_ITS ---
Intake Vital Signs 08/26/23 12:43 Height 5 ft 9 in Weight 285 lb BMI 42.1 BP 124/59 L Blood Pressure Location Lt brachial Position Sitting Pulse 78 Intake Visit Reasons: Per Yakov Intake Note: Patient follow up Patient cc: Back pain, acid reflex and between diarrhea and constipation. Denies any other GI issues. Pancake Professional Required: No Accompanied by: Spouse Allergies No Known Allergies Allergy (Verified 08/26/23 12:40) HPI Per Yakov HPI Details 43 yr old m here for f/u RECAP: Had seen Annie before for: abdo cramping postprandial diarrhea GERD pos FH of CAD reviewed labs with high insulin and c peptide, and low nml gluc TESTS: Negative H pylori,? Pancreatic elastase was normal.? H pylori negative.? Normal transglutaminase, nml triglyceride nml? elastase LABS: 12/2022-- initial elevated lipase. then nml, nml HGb and BMP, LFT IMAGING: MRI abdomen: 11/2021- nml contour to pancreas EGD 03/2022- Severe esophagitis EGD?colo: 02/10 erosive ileitis, gastritis, esophagus was much better INTERIM: ongoing issues with flushing, abdominal pain mushy stools, nausea -no vomtiing no nsaid no alcohol was referred to endocrine at [facility] recommended rowan w/u--not had never tried budesonide has joint pains and stiffness worse in mornings Reviewed endoscopy results, not been taking nsaids worried about scrotal swelling poor sleep, worried about NILE EXAM: GENERAL: The patient is obese VITAL SIGNS:see workflow HEENT: Nonicteric sclerae, PERRLA, EOMI. Oropharynx clear. Moist mucous membranes. Conjunctivae appear well perfused. No thyroid mass. CHEST: Chest wall is nontender. HEART: Regular rate and rhythm without murmurs. LUNGS: Clear to auscultation bilaterally. ABDOMEN: Soft, positive bowel sounds, nontender, no organomegaly.no flank tenderness SKIN: No rash, no excessive bruising, petechiae, or purpura. NEUROLOGIC: Cranial nerves II-XII intact without motor/sensory deficit. psych: nml affect scrotum: left testicle higher, tender, small lump felt--?cystic A?P: 1/ Suspected crohsn disease 2/ scrotal lump PLAN: 1/ US scrotum 2/ VCE 3/ refer sleep study 4/ revisit endocrine assessment after ab ove PFSH Medical History On anticoagulant therapy Hx of ventricular tachycardia GERD (gastroesophageal reflux disease) IBS (irritable bowel syndrome) Dyslipidemia Myocardial infarction HTN (hypertension) CAD (coronary artery disease) Elevated lipase Surgical History Hx of colonoscopy History of esophagogastroduodenoscopy (EGD) Hx of tonsillectomy Hx of bone graft History of heart artery stent History of surgery on arm Hx of appendectomy Family History Father Heart problem HTN (hypertension) Paternal Grandfather HTN (hypertension) Social History Housing: House Are you a primary child care centre manager to a significant other at home: No Do you presently have visiting nurse or other home services: No Alcohol intake: current Alcohol intake frequency: holidays/special occasions only Patient Tobacco Use Status: Former Tobacco user Quit Date: 2004 Tobacco use type: Cigarette Years Smoked: 11 years e-Cigarette/Vaping Use: Never Used Second Hand Smoke Exposure: No service: No Current occupational status: employed Cognitive needs: No Hearing needs: No Vision needs: No Physical Exam Vital Signs: Last Vital Signs Pulse 78 08/26/23 12:43 BP 124/59 L 08/26/23 12:43 BMI result Body Mass Index 42.1 Assessment & Plan Assessment & Plan (1) Hydrocele: Code(s): N43.3 - Hydrocele, unspecified Plan: A?P: 1/ Suspected crohsn disease 2/ scrotal lump PLAN: 1/ US scrotum 2/ VCE 3/ refer sleep study 4/ revisit endocrine assessment after above (2) Epididymal cyst: Code(s): N50.3 - Cyst of epididymis Plan: A?P: 1/ Suspected crohsn disease 2/ scrotal lump PLAN: 1/ US scrotum 2/ VCE 3/ refer sleep study 4/ revisit endocrine assessment after above (3) NILE (obstructive sleep apnea): Code(s): G47.33 - Obstructive sleep apnea (adult) (pediatric) Plan: A?P: 1/ Suspected crohsn disease 2/ scrotal lump PLAN: 1/ US scrotum 2/ VCE 3/ refer sleep study 4/ revisit endocrine assessment after above (4) Ileitis, regional: Code(s): K50.00 - Crohn's disease of small intestine without complications Plan: A?P: 1/ Suspected crohsn disease 2/ scrotal lump PLAN: 1/ US scrotum 2/ VCE 3/ refer sleep study 4/ revisit endocrine assessment after above Orders: Orders US scrotum Today N43.3 - Hydrocele, unspecified, N50.3 - Cyst of epididymis Referrals Sleep Medicine Referral G47.33 - Obstructive sleep apnea (adult) (pediatric), K50.00 - Crohn's disease of small intestine without complications Medications: New peg-electrolyte soln 420 gram until fecal effluent is clear; do not exceed a total volume of 2,000 mL 240 mL PO Q10M 4,000 mL 0RF Coding Level of Care Code Est Pt Level 4 (96499) Diagnoses Hydrocele N43.3 Epididymal cyst N50.3 NILE (obstructive sleep apnea) G47.33 Ileitis, regional K50.00
[2023-08-26 12:43] VITALS: BP 124/59; PULSE 78; BMI 42.1
== END 2023-08-26 14:42 | disposition home or self-care (01) ==
PROVIDERS: PCP Internal Medicine; Visit Provider Internal Medicine Gastroenterology
DX: N43.3 Hydrocele, unspecified (principal); N50.3 Cyst of epididymis; G47.33 Obstructive sleep apnea (adult) (pediatric); K50.00 Crohn's disease of small intestine without complications
CPT/HCPCS: 99214

== ENCOUNTER → 2023-08-26 12:37 | Outpatient (BNVA) | payer OTHER, SELFPAY | PROVIDERS: PCP Internal Medicine; Visit Provider Internal Medicine Gastroenterology | DX: N43.3 Hydrocele, unspecified (principal); N50.3 Cyst of epididymis; G47.33 Obstructive sleep apnea (adult) (pediatric); K50.00 Crohn's disease of small intestine without complications | CPT/HCPCS: 99212 ==

== ENCOUNTER 2023-09-03 09:31 | Outpatient (AMB) | payer OTHER, SELFPAY ==
[2023-09-03 09:41] VITALS: BP 124/90; PULSE 74; TEMP 36.5; O2SAT 96; BMI 42.7
--- NOTE | 2023-09-03 09:41 | AM.OFFWIN_ITS ---
Intake Vital Signs 09/03/23 09:41 Height 5 ft 9 in Weight 289 lb BMI 42.7 BP 124/90 H Blood Pressure Location Lt brachial Position Sitting Pulse 74 Pulse Source Pulse Oximeter Temp 97.7 F Temp Source Temporal Artery Scan Pulse Oximetry (%) 96 Oxygen Delivery Method Room Air Intake Visit Reasons: EP RT stye Intake Note: pt is here today for rt eye stye 2 day ago Patient Tobacco Use Status: Former Tobacco user Quit Date: 2004 Allergies No Known Allergies Allergy (Verified 09/03/23 10:38) Medication List - Last Reconciled 09/03/23 by Ko Carias MD aspirin 1 tab PO DAILY atorvastatin 80 mg PO BEDTIME betamethasone, augmented 0.05 % 1 appl topical BID PRN carvedilol 6.25 mg PO BID ezetimibe 10 mg PO DAILY fluocinonide 0.05% 1 appl topical BID lisinopril 20 mg PO DAILY nitroglycerin 0.4 mg sublingual .Q5MINS PRN Do you need a note to return to daycare/school/sports/work: No HPI EP RT stye HPI Details 43-year-old male presents to the office for a sick visit. Patient has a swelling in the right upper eyelid which is slowly getting worse. Discomfort and tearing present. Does not use contact lenses. [facility] Medical History On anticoagulant therapy Hx of ventricular tachycardia GERD (gastroesophageal reflux disease) IBS (irritable bowel syndrome) Dyslipidemia Myocardial infarction HTN (hypertension) CAD (coronary artery disease) Elevated lipase Surgical History Hx of colonoscopy History of esophagogastroduodenoscopy (EGD) Hx of tonsillectomy Hx of bone graft History of heart artery stent History of surgery on arm Hx of appendectomy Family History Father Heart problem HTN (hypertension) Paternal Grandfather HTN (hypertension) Social History Housing: House Are you a primary urgent care technician to a significant other at home: No Do you presently have visiting nurse or other home services: No Alcohol intake: current Alcohol intake frequency: holidays/special occasions only Patient Tobacco Use Status: Former Tobacco user Quit Date: 2004 Tobacco use type: Cigarette Years Smoked: 11 years e-Cigarette/Vaping Use: Never Used Second Hand Smoke Exposure: No service: No Current occupational status: employed Cognitive needs: No Hearing needs: No Vision needs: No Physical Exam Vital Signs: Last Vital Signs Temp 97.7 F 09/03/23 09:41 Pulse 74 09/03/23 09:41 BP 124/90 H 09/03/23 09:41 Pulse Ox 96 09/03/23 09:41 Oxygen Delivery Method Room Air 09/03/23 09:41 BMI result Body Mass Index 42.7 HEENT Other: Right eye: Upper eyelid is swollen and erythematous. Skin tag on the upper eyelid. Corneas clear. Conjunctiva is clear. Assessment & Plan Assessment & Plan (1) Hordeolum externum right eye, unspecified eyelid: Code(s): H00.013 - Hordeolum externum right eye, unspecified eyelid Plan: Erythromycin ophthalmic ointment, applied twice a day. If symptoms do not improve to follow-up here. Coding Level of Care Code Est Pt Level 3 (76386) Diagnoses Hordeolum externum right eye, unspecified eyelid H00.013
== END 2023-09-03 11:24 | disposition home or self-care (01) ==
PROVIDERS: PCP Internal Medicine; Visit Provider Internal Medicine
DX: H00.011 Hordeolum externum right upper eyelid (principal)
CPT/HCPCS: 99213

== ENCOUNTER 2023-09-17 09:16 | Outpatient (AMB) | payer OTHER, SELFPAY ==
--- NOTE | 2023-09-17 09:19 | MHC.OFFVIS ---
Intake Vital Signs 09/17/23 09:24 Height 5 ft 9 in Weight 290 lb 2 oz BMI 42.8 BP 134/80 Blood Pressure Location Rt brachial Position Sitting Pulse 71 Pulse Source Pulse Oximeter Pulse Oximetry (%) 96 Oxygen Delivery Method Room Air Intake Visit Reasons: INP: NILE-Confirmed Intake Note: Patient presents for NILE. Wake up a lot, snoring and wakes up gasping for air Allergies No Known Allergies Allergy (Verified 09/17/23 09:23) HPI HPI Comments History of Present Illness Details 43 y/o male patient with hx of CAD, and PR X2 presents for new in-person visit for sleep consultation. Pt reports loud snoring and non refreshing sleep, he wakes up 5-6 times at night. He wake up exhausted, being tired all day long. He had in sleep study about 10 years ago, but it was negative for sleep apnea at that time. He had endoscope recently and witnessed frequent apnea spells, and recommenced to have repeat sleep study. Sleep questionnaire: Have you ever been diagnosed with a sleep disorder? No. Have you ever had a sleep study in the past? Yes. Have you ever been treated for a sleep disorder? No. Do you take medications for a sleep disorder? No. Do you snore? Yes. Do you wake up gasping at night? Yes, sometimes. Do you have episodes of apneas? Yes. If yes, are they witnessed? Yes. Do you have episodes of nocturnal chest pain or dyspnea? No. Do you have difficulty initiating sleep? No. Do you have difficulty maintaining sleep? Yes. Do you wake up tired? Yes. Do you have headaches upon awakening? Yes. Do you wake up with dry mouth or throat? Yes. Do you have GERD? Rarely. Do you have nocturia? No. Do you have nocturnal leg cramps? Yes. Do you have symptoms of restless legs? No. Do you act out your dreams? No. Sleep hygiene questionnaire: What is your usual sleep routine? Usual bedtime is at ; Usual wake up time is at 5:30 am. Do you take naps? No. Is your sleep environment cool, dark, and quiet? Yes. Do you exercise? Yes, walking sometimes. Do you take caffeine or other stimulants? Soda. Do you use electronics in bed? Yes, sometimes. What is your work schedule? Day time. Hypersomnolence questionnaire: Do you have daytime tiredness or fatigue? Yes, all the time. Do you easily fall asleep when inactive? No. Have you ever had episodes of sudden weakness? No. Have you ever had episodes of sudden weakness associated with strong emotions? No. PFSH Medical History On anticoagulant therapy Hx of ventricular tachycardia GERD (gastroesophageal reflux disease) IBS (irritable bowel syndrome) Dyslipidemia Myocardial infarction HTN (hypertension) CAD (coronary artery disease) Elevated lipase Surgical History Hx of colonoscopy History of esophagogastroduodenoscopy (EGD) Hx of tonsillectomy Hx of bone graft History of heart artery stent History of surgery on arm Hx of appendectomy Family History Father Heart problem HTN (hypertension) Paternal Grandfather HTN (hypertension) Social History Housing: House Are you a primary career development associate to a significant other at home: No Do you presently have visiting nurse or other home services: No Alcohol intake: current Alcohol intake frequency: holidays/special occasions only Patient Tobacco Use Status: Former Tobacco user Quit Date: 2004 Tobacco use type: Cigarette Years Smoked: 11 years e-Cigarette/Vaping Use: Never Used Second Hand Smoke Exposure: No service: No Current occupational status: employed Cognitive needs: No Hearing needs: No Vision needs: No Review of Systems Const All systems reviewed & are unremarkable except as noted in HPI and below Physical Exam Vital Signs: Last Vital Signs Pulse 71 09/17/23 09:24 BP 134/80 09/17/23 09:24 Pulse Ox 96 09/17/23 09:24 Oxygen Delivery Method Room Air 09/17/23 09:24 BMI result Body Mass Index 42.8 Const General: cooperative Nutritional Appearance: obese Orientation/consciousness: patient oriented x3 Neck Neck: Yes full ROM and Yes supple Resp Effort & Inspection: normal respiratory effort and able to speak in complete sentences Neuro General: patient oriented x3, gait normal and moves all extremities Cranial nerves: Yes CN's II-XII intact bilaterally Cognition (Neuro): normal cognition Gait exam (Neuro): Normal gait present Motor exam (neuro): 5/5 motor strength present throughout Psych Appearance: grossly normal Mental Status: mental status grossly normal Speech and movement: Normal speech and movement present Affect: normal affect Attitude: cooperative Assessment & Plan Assessment & Plan (1) NILE (obstructive sleep apnea): Code(s): G47.33 - Obstructive sleep apnea (adult) (pediatric) (2) Daytime sleepiness: Code(s): R40.0 - Somnolence (3) Morbid obesity due to excess calories: Code(s): E66.01 - Morbid (severe) obesity due to excess calories Plan Pt is advised to undergo in lab sleep study to assess for sleep apnea. Will f/u with pt after study to discuss results and appropriate treatment options. Sleep hygiene education provided, wt reduction advised. Advised patient to try magnesium 400 mg qHS to help sleep, prevent leg cramping and headche. Pt to call with any worsening concerns or questions. Orders: Orders RT PSG in-lab sleep study Today E66.01 - Morbid (severe) obesity due to excess calories, G47.33 - Obstructive sleep apnea (adult) (pediatric), I25.10 - Atherosclerotic heart disease of [place] coronary artery without angina pectoris, R40.0 - Somnolence Medications: New magnesium oxide 400 mg PO DAILY 30 days 30 tabs 6RF Coding Level of Care Code New Pt Level 3 (44933) Diagnoses NILE (obstructive sleep apnea) G47.33 Daytime sleepiness R40.0 Morbid obesity due to excess calories E66.01
[2023-09-17 09:24] VITALS: BP 134/80; PULSE 71; O2SAT 96; BMI 42.8
== END 2023-09-17 09:48 | disposition home or self-care (01) ==
PROVIDERS: PCP Internal Medicine; Visit Provider Nurse Practitioner Family
DX: G47.33 Obstructive sleep apnea (adult) (pediatric) (principal); R40.0 Somnolence; E66.01 Morbid (severe) obesity due to excess calories
CPT/HCPCS: 99203

== ENCOUNTER → 2023-09-17 09:16 | Outpatient (BNVA) | payer OTHER, SELFPAY | PROVIDERS: PCP Internal Medicine; Visit Provider Nurse Practitioner Family | DX: G47.33 Obstructive sleep apnea (adult) (pediatric) (principal); R40.0 Somnolence; E66.01 Morbid (severe) obesity due to excess calories; Z68.41 Body mass index [BMI] 40.0-44.9, adult | CPT/HCPCS: 99202 ==

== ENCOUNTER → 2023-11-27 13:55 | Outpatient (REF) | payer OTHER, SELFPAY | LOC: HO.SL 13:55 | PROVIDERS: PCP Internal Medicine; Visit Provider Nurse Practitioner Family | DX: G47.33 Obstructive sleep apnea (adult) (pediatric) (principal); R40.0 Somnolence | CPT/HCPCS: 95806 ==

== ENCOUNTER → 2023-11-27 14:04 | Outpatient (BNV) | payer OTHER, SELFPAY | PROVIDERS: PCP Internal Medicine; Visit Provider Psychiatry & Neurology Neurology | DX: G47.33 Obstructive sleep apnea (adult) (pediatric) (principal) | CPT/HCPCS: 95806 ==

== ENCOUNTER 2023-12-17 08:59 | Outpatient (AMB) | payer OTHER, SELFPAY ==
[2023-12-17 10:03] VITALS: BP 118/76; PULSE 73; TEMP 36.4; O2SAT 95; BMI 43.7
--- NOTE | 2023-12-17 10:03 | AM.OFFWIN_ITS ---
Intake Vital Signs 12/17/23 10:03 Height 5 ft 9 in Weight 296 lb BMI 43.7 BP 118/76 Blood Pressure Location Lt brachial Position Sitting Pulse 73 Pulse Source Pulse Oximeter Temp 97.5 F Temp Source Temporal Artery Scan Pulse Oximetry (%) 95 Oxygen Delivery Method Room Air Intake Visit Reasons: EP Arm/hand swelling Intake Note: pt is here today for arm and hand swelling started Patient Tobacco Use Status: Former Tobacco user Quit Date: 2004 Allergies No Known Allergies Allergy (Verified 12/17/23 10:35) Medication List - Last Reconciled 12/17/23 by Ko Carias MD aspirin 1 tab PO DAILY atorvastatin 80 mg PO BEDTIME betamethasone, augmented 0.05 % 1 appl topical BID PRN carvedilol 6.25 mg PO BID erythromycin 0.5 inches ophthalmic (eye) TID ezetimibe 10 mg PO DAILY fluocinonide 0.05% 1 appl topical BID lisinopril 20 mg PO DAILY magnesium oxide 400 mg PO DAILY 30 days meloxicam 15 mg PO DAILY nitroglycerin 0.4 mg sublingual .Q5MINS PRN Do you need a note to return to daycare/school/sports/work: No HPI EP Arm/hand swelling HPI Details 43-year-old male presents to the office for a sick visit. 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 For the past week he is complaining of numbness and tightness in the forearm and right arm. Similar numbness and tightness in the left upper extremity. Shooting electric sensations when he moves his wrist. 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 No recent weight gain. History of obstructive sleep apnea and coronary artery disease. [facility] Medical History On anticoagulant therapy Hx of ventricular tachycardia GERD (gastroesophageal reflux disease) IBS (irritable bowel syndrome) Dyslipidemia Myocardial infarction HTN (hypertension) CAD (coronary artery disease) Elevated lipase Surgical History Hx of colonoscopy History of esophagogastroduodenoscopy (EGD) Hx of tonsillectomy Hx of bone graft History of heart artery stent History of surgery on arm Hx of appendectomy Family History Father Heart problem HTN (hypertension) Paternal Grandfather HTN (hypertension) Social History Housing: House Are you a primary child care education coordinator to a significant other at home: No Do you presently have visiting nurse or other home services: No Alcohol intake: current Alcohol intake frequency: holidays/special occasions only Patient Tobacco Use Status: Former Tobacco user Quit Date: 2004 Tobacco use type: Cigarette Years Smoked: 11 years e-Cigarette/Vaping Use: Never Used Second Hand Smoke Exposure: No service: No Current occupational status: employed Cognitive needs: No Hearing needs: No Vision needs: No Physical Exam Vital Signs: Last Vital Signs Temp 97.5 F 12/17/23 10:03 Pulse 73 12/17/23 10:03 BP 118/76 12/17/23 10:03 Pulse Ox 95 12/17/23 10:03 Oxygen Delivery Method Room Air 12/17/23 10:03 BMI result Body Mass Index 43.7 Const General: cooperative and healthy appearing Nutritional Appearance: well nourished Orientation/consciousness: patient oriented x3 Limitations: no limitations HEENT Head: Yes normal to inspection Eyes General: appearance normal, both eyes and all related structures Neck Neck: Yes normal visual inspection Chest Chest palpation & inspection: normal palpation of entire chest wall Resp Effort & Inspection: normal respiratory effort Neuro General: patient oriented x3 Extrem Other: Full range of motion at the right shoulder. Full range of motion at the right and left forearm. Assessment & Plan Assessment & Plan (1) Wrist sprain: Code(s): S63.509A - Unspecified sprain of unspecified wrist, initial encounter Plan: Patient has increased BMI and increased work with his hands as caused swelling in the upper extremities causing his symptoms. Anti-inflammatories have been added to the regimen. If symptoms do not improve, I suggested he follow-up with his primary care provider. Medications: New meloxicam 15 mg PO DAILY 14 tabs 0RF Coding Level of Care Code Est Pt Level 3 (59554) Diagnoses Wrist sprain S63.509A
== END 2023-12-17 10:57 | disposition home or self-care (01) ==
PROVIDERS: PCP Internal Medicine; Visit Provider Internal Medicine
DX: S63.509A Unspecified sprain of unspecified wrist, initial encounter (principal)
CPT/HCPCS: 99213

== ENCOUNTER 2024-02-14 15:06 | Outpatient (AMB) | payer OTHER, SELFPAY ==
[2024-02-14 15:09] VITALS: BP 120/76; PULSE 104; O2SAT 95; BMI 44.4
--- NOTE | 2024-02-14 15:09 | MHC.PC.OV ---
Vital Signs 02/14/24 15:09 Height 5 ft 9 in Weight 301 lb BMI 44.4 BP 120/76 Blood Pressure Location Rt brachial Position Sitting Pulse 104 H Pulse Source Pulse Oximeter Pulse Oximetry (%) 95 Oxygen Delivery Method Room Air Intake Visit Reasons: PE Allergies No Known Allergies Allergy (Verified 02/14/24 15:09) Medication List - Last Reconciled 02/14/24 by Aron Alexandra MD aspirin 1 tab PO DAILY atorvastatin 80 mg PO BEDTIME carvedilol 6.25 mg PO BID ezetimibe 10 mg PO DAILY lisinopril 20 mg PO DAILY magnesium oxide 400 mg PO DAILY 30 days nitroglycerin 0.4 mg sublingual .Q5MINS PRN Tobacco use date assessed: 02/14/24 Dental Screening Dental Screen Date: 02/14/24 Did you have a dental visit in the last 12 months?: Yes Did you have a dental problem in the last 6 months where you did not have access to dental care?: No Was dental information given to patient?: Patient has dentist HPI PE HPI Details Patient is 43-year-old gentleman came in today for physical exam Patient continued to have pain in his right shoulder He was evaluated by orthopedic [facility] 3 years ago He is requesting 2nd opinion by [facility], referral placed He works as a [employer] and 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 He was seeing [facility] Cardiology he would like to switch to [facility] Cardiology. Colonoscopy done through Dr. 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 Most likely secondary to line of work he is in [facility] Medical History On anticoagulant therapy Hx of ventricular tachycardia GERD (gastroesophageal reflux disease) IBS (irritable bowel syndrome) Dyslipidemia Myocardial infarction HTN (hypertension) CAD (coronary artery disease) Elevated lipase Surgical History Hx of colonoscopy History of esophagogastroduodenoscopy (EGD) Hx of tonsillectomy Hx of bone graft History of heart artery stent History of surgery on arm Hx of appendectomy Family History Father Heart problem HTN (hypertension) Paternal Grandfather HTN (hypertension) Social History Housing: House Are you a primary manager urgent care to a significant other at home: No Do you presently have visiting nurse or other home services: No Alcohol intake: current Alcohol intake frequency: holidays/special occasions only Patient Tobacco Use Status: Former Tobacco user Tobacco use type: Cigarette Years Smoked: 11 years e-Cigarette/Vaping Use: Never Used Second Hand Smoke Exposure: No service: No Current occupational status: employed Cognitive needs: No Hearing needs: No Vision needs: No Questionnaire PHQ-9 Over the last 2 weeks, how often have you been bothered by any of the following problems? 1. Little interest or pleasure in doing things: not at all 2. Feeling down, depressed, or hopeless: not at all 3. Trouble falling or staying asleep, or sleeping too much: not at all 4. Feeling tired or having little energy: not at all 5. Poor appetite or overeating: not at all 6. Feeling bad about yourself - or that you are a failure or have let yourself or your family down: not at all 7. Trouble concentrating on things, such as reading the newspaper or watching television: not at all 8. Moving or speaking so slowly that other people could have noticed. Or the opposite - being so fidgety or restless that you have been moving around a lot more than usual: not at all 9. Thoughts that you would be better off or of hurting yourself in some way: not at all Total score: 0 Depression Screening Interpretation: Negative Depression Screening Done: Yes 05106 - PHQ-9 Billing: Yes Source: Developed by Drs. Rusty Cox, Flora Schmidt, Sunny Thurman and colleagues, with an educational ashlee from [employer]. Thrive Questionnaire Date Thrive assessed: 02/14/24 I am a: Patient What is your living situation today?: I have a steady place to live Within the past 12 months, did the food you bought not last and you didn't have the money to get more?: I choose not to answer this question Within the past 12 months, did you worry whether your food would run out before you got money to buy more?: I choose not to answer this question Do you have trouble paying for medicines?: I choose not to answer this question Do you have trouble getting transportation to medical appointments?: I choose not to answer this question Do you have trouble paying your heating and electricity bill?: I choose not to answer this question Do you have trouble taking care of your child, family member or friend?: I choose not to answer this question Do you have trouble with day-to-day activities such as bathing, preparing meals, shopping, managing finances, etc.?: I choose not to answer this question Are you currently unemployed and looking for a job?: I choose not to answer this question Are you interested in more education?: I choose not to answer this question Please select the resources that you would like help with: Housing/Penitentiary Currently or been in a relationship where the following occur: I choose not to answer THRIVE Score: 0 AUDIT C Alcohol Use Questionnaire (AUDIT-C) 1. How often do you have a drink containing alcohol?: Monthly or less 2. How many drinks containing alcohol do you have on a typical day when you are drinking?: 3 or 4 3. How often do you have six or more drinks on one occasion?: Never Total Score: 2 Score Reviewed/Action Taken: Yes CARLI-7 AMB Questionnaire CARLI-7 Date CARLI - 7 assessed: 02/14/24 Feeling nervous, anxious, or on edge: 0 = Not at all Not being able to stop or control worryin = Not at all Worrying too much about different things: 0 = Not at all Trouble relaxin = Not at all Being so restless that it is hard to sit still: 0 = Not at all Becoming easily annoyed or irritable: 0 = Not at all Feeling afraid as if something awful might happen: 0 = Not at all Total CARLI-7 score (0-4 normal; 5-9 mild; 10-14 moderate; 15-21 severe): 0 Source: Developed by Drs. Rusty Cox, Flora Schmidt, Sunny Thurman and colleagues, with an educational ashlee from [employer]. CARLI-7 Assessment Billing CARLI-7 Assessment Tool: CARLI-7 Assessment 46388 Review of Systems Const Denies chills, Denies fever(s) and Denies headache(s) ENT Denies headache(s), Denies nasal discharge, Denies nasal obstruction, Denies odynophagia and Denies sinus pain Card Denies chest pain at rest and Denies chest pain with activity Resp Denies cough and Denies hemoptysis GI Denies diarrhea, Denies odynophagia, Denies vomiting and Denies hematemesis Reports as per HPI Musc Denies abnormal gait Skin/Breast Reports as per HPI Neuro Denies Neuro-related abnormal movements, Denies Abnormal speech present, Denies abnormal gait, Denies headache(s) and Denies Sensory deficit (Neuro) Psych Denies mood swings and Denies paranoia Endo Reports as per HPI Dandre/Lymph Reports as per HPI Aller/Immun Reports as per HPI Physical exam (Primary Care) Vital Signs: Last Vital Signs Pulse 104 H 02/14/24 15:09 BP 120/76 02/14/24 15:09 Pulse Ox 95 02/14/24 15:09 Oxygen Delivery Method Room Air 02/14/24 15:09 BMI result Body Mass Index 44.4 Tobacco/Smoking Status: Tobacco use Status Tobacco use date assessed 02/14/24 02/14/24 15:12 Patient Tobacco Use Status Former Tobacco user 02/14/24 15:12 Tobacco use type Cigarette 02/14/24 15:12 e-Cigarette/Vaping Use Never Used 02/14/24 15:12 PHQ-9: PHQ-9 Score PHQ-9: Total score 0 02/14/24 15:12 Depression Screening Interpretation: Negative Thrive Assessment: Date of Thrive Assessment Date Thrive assessed 02/14/24 02/14/24 15:12 Currently or been in a relationship where the following occur: I choose not to answer Const General: cooperative, comfortable and no acute distress Orientation/consciousness: patient oriented x3 HENMT Head: Yes normocephalic and Yes atraumatic Eyes General: appearance normal, both eyes and all related structures Pupils: Equal, round and reactive pupils present EOM: EOMs intact bilaterally Neck Neck: Yes supple and No lymphadenopathy Thyroid: Thyroid normal Lymphatic: no lymphadenopathy noted Resp Effort & Inspection: normal respiratory effort and able to speak in complete sentences Auscultation: clear to auscultation bilaterally Cardio Heart sounds: S1 normal heart sound present and S2 normal heart sound present GI Palpation (GI): Soft to palpation and nontender Auscultation: normal bowel sounds General: Yes no CVA tenderness Back/Spine/Pelvis Back: no CVA tenderness Skin General skin exam: elasticity normal and turgor normal Neuro General: patient oriented x3 and gait normal Cranial nerves: Yes Equal, round and reactive pupils present Speech: No Abnormal speech present Sensory Exam: No Sensory deficit (Neuro) Coordination: tandem gait normal and Romberg test negative Extrem Other: He has no pain with palpation of shoulder except anteriorly deep, range of motion is intact with some soreness General: Yes normal exam except as noted and No edema Assessment and Plan Assessment & Plan (1) Encounter for general adult medical examination with abnormal findings: Code(s): Z00.01 - Encounter for general adult medical examination with abnormal findings (2) Coronary artery disease: Code(s): I25.10 - Atherosclerotic heart disease of [place] coronary artery without angina pectoris Qualifiers: Coronary Disease-Associated Artery/Lesion type: [place] artery [place] vs. transplanted heart: [place] heart Associated angina: without angina Qualified Code(s): I25.10 - Atherosclerotic heart disease of [place] coronary artery without angina pectoris (3) History of coronary artery stent placement: Code(s): Z95.5 - Presence of coronary angioplasty implant and graft (4) Blurring of vision: Code(s): H53.8 - Other visual disturbances (5) Shoulder pain, right: Code(s): M25.511 - Pain in right shoulder Qualifiers: Chronicity: chronic Qualified Code(s): M25.511 - Pain in right shoulder; G89.29 - Other chronic pain (6) Eczematous dermatitis: Code(s): L30.9 - Dermatitis, unspecified Qualifiers: Eczema type: unspecified Qualified Code(s): L30.9 - Dermatitis, unspecified (7) Morbid obesity due to excess calories: Code(s): E66.01 - Morbid (severe) obesity due to excess calories Plan Patient is 43-year-old gentleman came in today for physical exam Patient continued to have pain in his right shoulder He was evaluated by orthopedic [facility] 3 years ago He is requesting 2nd opinion by [facility], referral placed He works as a [employer] and 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 He was seeing [facility] Cardiology he would like to switch to [facility]. Colonoscopy done through Dr. 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 Most likely secondary to line of work he is in Orders: Orders Complete Blood Count Auto Diff Today E66.01 - Morbid (severe) obesity due to excess calories, G89.29 - Other chronic pain, H53.8 - Other visual disturbances, I25.10 - Atherosclerotic heart disease of [place] coronary artery without angina pectoris, L30.9 - Dermatitis, unspecified, M25.511 - Pain in right shoulder, Z00.01 - Encounter for general adult medical examination with abnormal findings, Z95.5 - Presence of coronary angioplasty implant and graft TSH reflex Free T4 Today E66.01 - Morbid (severe) obesity due to excess calories, G89.29 - Other chronic pain, H53.8 - Other visual disturbances, I25.10 - Atherosclerotic heart disease of [place] coronary artery without angina pectoris, L30.9 - Dermatitis, unspecified, M25.511 - Pain in right shoulder, Z00.01 - Encounter for general adult medical examination with abnormal findings, Z95.5 - Presence of coronary angioplasty implant and graft Vitamin D 25-OH (D2 and D3) Today E66.01 - Morbid (severe) obesity due to excess calories, G89.29 - Other chronic pain, H53.8 - Other visual disturbances, I25.10 - Atherosclerotic heart disease of [place] coronary artery without angina pectoris, L30.9 - Dermatitis, unspecified, M25.511 - Pain in right shoulder, Z00.01 - Encounter for general adult medical examination with abnormal findings, Z95.5 - Presence of coronary angioplasty implant and graft Comprehensive [place]. Panel Fast Today E66.01 - Morbid (severe) obesity due to excess calories, G89.29 - Other chronic pain, H53.8 - Other visual disturbances, I25.10 - Atherosclerotic heart disease of [place] coronary artery without angina pectoris, L30.9 - Dermatitis, unspecified, M25.511 - Pain in right shoulder, Z00.01 - Encounter for general adult medical examination with abnormal findings, Z95.5 - Presence of coronary angioplasty implant and graft Lipid Panel Today E66.01 - Morbid (severe) obesity due to excess calories, G89.29 - Other chronic pain, H53.8 - Other visual disturbances, I25.10 - Atherosclerotic heart disease of [place] coronary artery without angina pectoris, L30.9 - Dermatitis, unspecified, M25.511 - Pain in right shoulder, Z00.01 - Encounter for general adult medical examination with abnormal findings, Z95.5 - Presence of coronary angioplasty implant and graft Magnesium Today E66.01 - Morbid (severe) obesity due to excess calories, G89.29 - Other chronic pain, H53.8 - Other visual disturbances, I25.10 - Atherosclerotic heart disease of [place] coronary artery without angina pectoris, L30.9 - Dermatitis, unspecified, M25.511 - Pain in right shoulder, Z00.01 - Encounter for general adult medical examination with abnormal findings, Z95.5 - Presence of coronary angioplasty implant and graft Referrals Cardiology Referral I25.10 - Atherosclerotic heart disease of [place] coronary artery without angina pectoris, Z95.5 - Presence of coronary angioplasty implant and graft Ophthalmology Referral H53.8 - Other visual disturbances Orthopedics Referral G89.29 - Other chronic pain, M25.511 - Pain in right shoulder Coding Level of Care Code Est Pt Level 4 (39135) Est Pt Prev Care 40-64y(10084) Diagnoses Encounter for general adult medical examination with abnormal findings Z00.01 Coronary artery disease involving [place] coronary artery of [place] heart without angina pectoris I25.10 Coronary Disease-Associated Artery/Lesion type: [place] artery [place] vs. transplanted heart: [place] heart Associated angina: without angina History of coronary artery stent placement Z95.5 Blurring of vision H53.8 Chronic right shoulder pain M25.511; G89.29 Chronicity: chronic Eczema, unspecified type L30.9 Eczema type: unspecified Morbid obesity due to excess calories E66.01 Additional Codes CARLI-7 Assessment Billing - CARLI-7 Assessment Tool: CARLI-7 Assessment 70466 ([id number])
== END 2024-02-14 17:45 | disposition home or self-care (01) ==
PROVIDERS: PCP Internal Medicine; Visit Provider Internal Medicine
DX: Z00.00 Encounter for general adult medical examination without abnormal findings (principal); I25.10 Atherosclerotic heart disease of native coronary artery without angina pectoris; E66.01 Morbid (severe) obesity due to excess calories; Z68.41 Body mass index [BMI] 40.0-44.9, adult; H53.8 Other visual disturbances; Z95.5 Presence of coronary angioplasty implant and graft; M25.511 Pain in right shoulder; G89.29 Other chronic pain; L30.9 Dermatitis, unspecified
CPT/HCPCS: 99396

== ENCOUNTER 2024-03-09 13:44 | Outpatient (REF) | payer OTHER, SELFPAY | END 2024-03-09 13:45 | disposition home or self-care (01) | LOC: HO.HOSX 13:44 | DX: Z13.89 Encounter for screening for other disorder (principal) ==

== ENCOUNTER 2024-03-19 14:01 | Outpatient (AMB) | payer OTHER, SELFPAY ==
--- NOTE | 2024-03-19 14:05 | MHC.OFFVIS ---
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 Patient reports that he has had ongoing right shoulder pain for about 10 years now. No previous treatment, does not take anything for his pain. 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 Patient reports that he has had ongoing right shoulder pain for about 10 years now. No previous treatment, does not take anything for his pain. 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 He describes be able to work during the day but when he lies down at night he has some numbness over the entirety of his right arm and pain in his arm pit that extends down to his elbow. He has to stand up and walk around. He feels like he loses blood supply to the arm and has tingling and discomfort. This tends to resolve during the day. He has some crepitus with shoulder range motion and thought maybe this was related. [facility] Medical History (Updated 03/19/24 @ 14:37 by Giuseppe Restrepo MD) On anticoagulant therapy Hx of ventricular tachycardia GERD (gastroesophageal reflux disease) IBS (irritable bowel syndrome) Dyslipidemia Myocardial infarction HTN (hypertension) CAD (coronary artery disease) Elevated lipase Surgical History (Updated 03/19/24 @ 14:07 by Aleshia Lee FLEECE TIER) Hx of colonoscopy History of esophagogastroduodenoscopy (EGD) Hx of tonsillectomy Hx of bone graft History of heart artery stent History of surgery on arm Hx of appendectomy Family History Father Heart problem HTN (hypertension) Paternal Grandfather HTN (hypertension) Social History Housing: House Are you a primary daycare provider to a significant other at home: No Do you presently have visiting nurse or other home services: No Alcohol intake: current Alcohol intake frequency: holidays/special occasions only Patient Tobacco Use Status: Former Tobacco user Tobacco use type: Cigarette Years Smoked: 11 years e-Cigarette/Vaping Use: Never Used Second Hand Smoke Exposure: No service: No Current occupational status: employed Cognitive needs: No Hearing needs: No Vision needs: No Physical Exam Extrem Other: Full range of motion right shoulder. Some crepitus with range of motion but no pain. Provocative tests are negative. He has a negative Ross test. Negative Tinel's at the cubital and carpal tunnel. No focal weakness right upper extremity. Assessment & Plan Assessment & Plan (1) Radicular pain of right upper extremity: Code(s): M79.2 - Neuralgia and neuritis, unspecified Category: Medical Plan: This is a 44-year-old gentleman who has arm numbness that prevents him from sleeping at night. He has no evidence of shoulder involvement I recommend an MRI of the cervical spine Orders: Orders MR cervical spine wo con 03/19/24 M79.2 - Neuralgia and neuritis, unspecified Coding Level of Care Code New Pt Level 4 (06424) Diagnoses Radicular pain of right upper extremity M79.2
== END 2024-03-19 14:36 | disposition home or self-care (01) ==
PROVIDERS: PCP Internal Medicine; Visit Provider Orthopaedic Surgery
DX: M79.2 Neuralgia and neuritis, unspecified (principal)
CPT/HCPCS: 99203

== ENCOUNTER → 2024-03-19 14:01 | Outpatient (BNVA) | payer OTHER, SELFPAY | PROVIDERS: PCP Internal Medicine; Visit Provider Orthopaedic Surgery | DX: M79.2 Neuralgia and neuritis, unspecified (principal) | CPT/HCPCS: 99202 ==

== ENCOUNTER → 2024-04-04 19:34 | Outpatient (BNV) | payer OTHER, SELFPAY | PROVIDERS: PCP Internal Medicine; Visit Provider Radiology Diagnostic Radiology | DX: S44.91XA Injury of unspecified nerve at shoulder and upper arm level, right arm, initial encounter (principal) | CPT/HCPCS: 72141 ==

== ENCOUNTER 2024-04-04 19:42 | Outpatient (REF) | payer OTHER, SELFPAY ==
--- NOTE | ~2024-04-04 | MR_ITS ---
EXAMINATION: MR CERVICAL SPINE WITHOUT CONTRAST CLINICAL INFORMATION: 44-year-old male, right shoulder numbness 6 months ongoing, waking up at night, no fall or injury. COMPARISON: None TECHNIQUE: Multiplanar multisequence MR imaging of the cervical spine was done prior to and without the administration IV gadolinium. Examination was performed on a 1.5 Dennise Siemens unit, using standard sequences. FINDINGS: CORONAL ALIGNMENT: -Mild dextroconvex scoliosis, apex at C5. SAGITTAL ALIGNMENT: -Straightening of the normal lordosis with a minimal reversal centered at C4. -No subluxations. CRANIOCERVICAL JUNCTION/C1-2 ARTICULATIONS: -Intact and aligned. VERTEBRAL BODIES/BONE MARROW: -Mild inferior endplate loss of height C6, chronic. No additional endplate deformities. -No gross bone marrow edema, or abnormal infiltrating bone marrow signal. -Of note, marrow signal is somewhat hypointense diffusely on T1, a finding which is nonspecific but most likely relates to hematopoietic/reactive marrow. DISCS: -Mild diffuse loss of disc signal, with moderate loss of disc height and signal at C5-6, and C6-7. CERVICAL CORD: -Normal in caliber and signal throughout. No impingement seen. PARAVERTEBRAL SOFT TISSUES: -No prevertebral or paravertebral soft tissue abnormality. Retropharyngeal course of the left ICA. -The thyroid is obscured by a saturation band. VISUALIZED INTRACRANIAL STRUCTURES: -Within normal limits. AXIAL DISC SPACE IMAGING: C2-C3: No central canal or neural foraminal narrowing. Normal facets. C3-C4: Minimal bulging disc, minimally indenting upon the ventral thecal sac but not contacting the cord. No significant central canal or neural foraminal narrowing. Minimal degenerative hypertrophy of the facets. C4-C5: There is a shallow diffuse disc bulge present, contiguous with bilateral uncinate spurring. There is central annular fissuring. There are early degenerative facet changes bilaterally. A combination of findings resulting in mild central canal narrowing, and moderate bilateral neural foraminal narrowing. C5-C6: There is a shallow diffuse disc bulge present with a superimposed left lateral annular fissure. This is contiguous with mild bilateral uncinate spurring. There are mild hypertrophic facet changes bilaterally, with a combination of findings resulting in minimal central canal narrowing, moderate left and mild right neural foraminal narrowing. C6-C7: There is a broad-based disc left paracentral and lateral extrusion of disc material with annular fissuring, contiguous with moderate bilateral uncinate spurring. This indents upon the ventral thecal sac but does not definitively contact the cord. A thin sliver of CSF remains ventral to the cord. Preserved CSF space posterior to the cord. There are mild hypertrophic facet changes bilaterally. There is mild central canal narrowing, moderate right and moderate to severe left neural foraminal narrowing. C7-T1: No central canal or neural foraminal narrowing. There is a small nerve root sleeve cyst in the lateral left neural foramen measuring 5 mm in diameter. T1-T2: No central canal narrowing. Moderate left neural foraminal narrowing due to left foraminal disc bulge and facet hypertrophy. MR/MR cervical spine wo con IMPRESSION: 1. Mild to moderate multilevel spondylosis as detailed, most significant at C6-7 where there is a left paracentral lateral disc extrusion, uncinate spurring, resulting in mild central canal, moderate right and moderate to severe left neural foraminal narrowing. 2. Straightening is minimal reversal of the normal lordosis. Mild dextroconvex scoliosis. 3. No significant central canal stenosis, cord impingement or signal abnormality. Electronically signed by: Maxime Cee MD 05/01/2024 03:16 PM EDT
== END 2024-04-04 19:43 | disposition home or self-care (01) ==
LOC: HO.MRI 19:42
PROVIDERS: PCP Internal Medicine; Visit Provider Orthopaedic Surgery
DX: M79.2 Neuralgia and neuritis, unspecified (principal)
CPT/HCPCS: 72141

== ENCOUNTER 2024-05-25 10:13 | Outpatient (AMB) | payer OTHER, SELFPAY ==
--- NOTE | 2024-05-25 10:17 | HO.SPINEOV ---
Intake Visit Reasons: lbp Intake Note: Mr. Gotti is here today c/o Neck and Shoulder pain with numbness on hands. [employer]ward[employer] Required: No Allergies No Known Allergies Allergy (Verified 05/25/24 10:21) Assessment & Plan Assessment & Plan (1) Cervical radiculopathy: Code(s): M54.12 - Radiculopathy, cervical region Category: Medical (2) Carpal tunnel syndrome: Code(s): G56.00 - Carpal tunnel syndrome, unspecified upper limb Category: Medical Plan Dear DR Restrepo, Thank you for referring Mr Gotti to our office today. 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 He has a lot of numbness of his right hand as well. He tells me that it is numb in the thumb index and middle finger all the time. At night that can get worse and he will have to shake his hands and he can make the symptoms go away. Originally the numbness and pain was not bothering him all that much, but at this point it is even hard to continue working. He will drop things at work. Nighttime is often. He will wake up 10-20 times a night. If he even sleeps on his right side for a little while the pain will shoot down his arm in his hands will go numb. He has more less just tried to manage this with activity modifications. He does see a chiropractor who has helped him a little bit. No formal PT yet, no injections etc.. Nexo-tgy-oaokmgg pain medications taken as needed including anti-inflammatories and Tylenol. 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 He has needed a stent 4 times, the last 1 was about 2 years ago. He gets routine cardiac catheterizations in his last test was negative for any blockages. He is followed by Dr. Saini. 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 History of tonsillectomy. Social hx: Smokes marijuana daily, does not smoke cigarettes or use any excessive alcohol Medications: Atorvastatin, lisinopril, carvedilol, baby aspirin, Zetia, magnesium Allergies: None Physical exam: Morbidly obese, no acute distress, he has weakness of his left hand which I would rate as 4-5. He gets cramping with his fingers when he lookback coordinator my hands to hard during testing. His motor exam testing is otherwise normal. No muscle wasting. He has loss of sensation along the C6 dermatome/median nerve distribution. Negative Tinel sign, but positive Phalen's sign on the right side. Reflexes diminished at the biceps and triceps bilaterally, no Jones's sign. Imaging review: There is a cervical MRI done at [facility] showing degenerative disc disease worse at C5-6 and C6-7. There is some mild foraminal narrowing at both of these levels. Impression: 44-year-old mikayla gifford presents for evaluation of right arm pain that is been getting steadily worse over the last few months, associated with tingling and numbness going down his arm into his hand, most likely consistent with the C6 dermatome. There is also overlapping evidence of carpal tunnel here with median nerve distribution symptoms as well, hand weakness and Phalen's sign positive on the right. His MRI shows he has some mild foraminal narrowing on the right at C5-6. I am not sure if it would explain the degree of pain that he is in. I will review with Dr. Beckham to see if he thinks it raises the level of surgical intervention, but in the interim I will order an EMG to see if we can clarify this a little bit better. I am almost certainly has carpal tunnel. It is well-known that carpal tunnel can sometimes cause pain in the arm in addition to the wrist. We have seen in the past this clinical presentation and carpal tunnel release will improve the symptoms. Once I have all the pertinent studies, and reviewed his imaging with Dr. Beckham, I will see him back in the office. Thank you for allowing us to care for your patient. The total time spent with this visit with this patient was 45 minutes reviewing history, physical exam, cervical imaging review, and implementation of treatment plan or further diagnostic testing Ovidio Beckham MD,PhD [facility] Orders: Orders NE electromyogram (EMG) Today M54.12 - Radiculopathy, cervical region Coding Level of Care Code New Pt Level 4 (11451) Diagnoses Cervical radiculopathy M54.12 Carpal tunnel syndrome G56.00
== END 2024-05-25 11:44 | disposition home or self-care (01) ==
LOC: HO.HNS 10:14
PROVIDERS: PCP Internal Medicine; Referring Provider Orthopaedic Surgery; Visit Provider Physician Assistant
DX: M54.12 Radiculopathy, cervical region (principal)
CPT/HCPCS: 99204

== ENCOUNTER → 2024-05-25 10:13 | Outpatient (BNVA) | payer OTHER, SELFPAY | PROVIDERS: PCP Internal Medicine; Referring Provider Orthopaedic Surgery; Visit Provider Physician Assistant | DX: M54.12 Radiculopathy, cervical region (principal); G56.00 Carpal tunnel syndrome, unspecified upper limb | CPT/HCPCS: 99202 ==

== ENCOUNTER 2024-06-10 08:10 | Outpatient (AMB) | payer OTHER, SELFPAY ==
[2024-06-10 08:33] VITALS: BP 110/80; PULSE 71; BMI 45.1
--- NOTE | 2024-06-10 08:33 | MHC.OFFVIS ---
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 Previously seen at [facility] but he would like to switch. Long history of cardiac issues that apparently started when he was 31 years old. He has had many cardiac catheterization over time with numerous PCIs. Most recently performed in August 2023 for diagnosis of unstable angina. However, no new interventions done at that time. Patient himself states he feels fine. No complaints including angina or shortness of breath or in fact anything cardiac sounding. He seems to be morbidly obese. Also has family history of premature CAD. 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 Camara has moved away from this area and hence he would like to switch to find a new regional sales director. However, he does not have any acute issues at this time. [facility] Medical History (Updated 05/25/24 @ 11:16 by LACEY Ortega) On anticoagulant therapy Hx of ventricular tachycardia GERD (gastroesophageal reflux disease) IBS (irritable bowel syndrome) Dyslipidemia Myocardial infarction HTN (hypertension) CAD (coronary artery disease) Elevated lipase Surgical History Hx of colonoscopy History of esophagogastroduodenoscopy (EGD) Hx of tonsillectomy Hx of bone graft History of heart artery stent History of surgery on arm Hx of appendectomy Family History Father Heart problem HTN (hypertension) Paternal Grandfather HTN (hypertension) Social History (Reviewed 06/10/24 @ 08:37 by Mary Tony [facility]) Housing: House Are you a primary director career to a significant other at home: No Do you presently have visiting nurse or other home services: No Alcohol intake: current Alcohol intake frequency: holidays/special occasions only Patient Tobacco Use Status: Former Tobacco user Tobacco use type: Cigarette Years Smoked: 11 years e-Cigarette/Vaping Use: Never Used Second Hand Smoke Exposure: No service: No Current occupational status: employed Cognitive needs: No Hearing needs: No Vision needs: No Review of Systems Const Denies chills, Denies fatigue, Denies fever(s), Denies frequent falls, Denies weakness, Denies weight gain and Denies weight loss ENT Denies dizziness Card Denies chest pain, Denies leg edema, Denies lightheadedness, Denies palpitations, Denies dyspnea and Denies dyspnea on exertion Resp Denies cough, Denies dyspnea and Denies dyspnea on exertion GI Denies hematochezia Musc Denies abnormal gait, Denies muscle weakness, Denies numbness, Denies radiating pain into limb and Denies tingling Neuro Denies abnormal gait, Denies dizziness, Denies frequent falls, Denies numbness, Denies tingling and Denies weakness Endo Denies fatigue and Denies palpitations Physical Exam Vital Signs: Last Vital Signs Pulse 71 06/10/24 08:33 BP 110/80 06/10/24 08:33 BMI result Body Mass Index 45.1 Const General: comfortable and no acute distress Orientation/consciousness: patient oriented x3 HEENT Other: Unremarkable Head: Yes normal to inspection Neck Neck: Yes normal visual inspection Chest Chest palpation & inspection: normal inspection of the chest Resp Auscultation: clear to auscultation bilaterally Cardio Palpation: normal PMI Heart sounds: S1 normal heart sound present, S2 normal heart sound present, no gallops, no murmurs and no rubs GI Palpation (GI): Soft to palpation Back/Spine/Pelvis Other: unremarkable Skin General skin exam: no rashes or lesions noted Neuro General: patient oriented x3 Extrem General: Yes normal to inspection Psych Mental Status: mental status grossly normal Office Procedures EKG Details: EKG with underlying sinus rhythm at 71/Min; no significant ST-T changes; [place] [id number], Complete Assessment & Plan Assessment & Plan (1) Coronary artery disease: Code(s): I25.10 - Atherosclerotic heart disease of [place] coronary artery without angina pectoris Category: Medical Qualifiers: Coronary Disease-Associated Artery/Lesion type: [place] artery [place] vs. transplanted heart: [place] heart Associated angina: without angina Qualified Code(s): I25.10 - Atherosclerotic heart disease of [place] coronary artery without angina pectoris (2) Morbid obesity due to excess calories: Code(s): E66.01 - Morbid (severe) obesity due to excess calories Category: Medical Plan Last cardiac catheterization reviewed from August of 2023. Mild diffuse disease in the LAD. Patent 1st diagonal stent. Circumflex with mild disease disease. Distal circumflex with 70% stenosis., small to medium size territory. RCA had mild diffuse disease with patent stents in the mid and distal RCA. Overall, catheterization findings thought to be similar to prior study from 2021. No culprit for unstable angina type presentation. Overall, premature CAD, morbid obesity, stable from symptom standpoint. Needs to focus a lot on weight loss as that will help him tremendously. He is not interested in bariatric referrals. With regard to antiplatelet agent, only on baby aspirin. Otherwise, on beta-blockers, high-dose statins, Zetia. For blood pressure, stable on lisinopril. We will check his lipids. Get an echocardiogram for cardiac function. We will also obtain the last office note from [facility]. Follow-up in 3 months. Orders: Orders Lipid Panel 02/14/24 E66.01 - Morbid (severe) obesity due to excess calories, G89.29 - Other chronic pain, H53.8 - Other visual disturbances, I25.10 - Atherosclerotic heart disease of [place] coronary artery without angina pectoris, L30.9 - Dermatitis, unspecified, M25.511 - Pain in right shoulder, Z00.01 - Encounter for general adult medical examination with abnormal findings, Z95.5 - Presence of coronary angioplasty implant and graft CA echo transthoracic complete Today I25.10 - Atherosclerotic heart disease of [place] coronary artery without angina pectoris Coding Level of Care Code New Pt Level 4 (29277) Diagnoses Coronary artery disease involving [place] coronary artery of [place] heart without angina pectoris I25.10 Coronary Disease-Associated Artery/Lesion type: [place] artery [place] vs. transplanted heart: [place] heart Associated angina: without angina Morbid obesity due to excess calories E66.01 CPT Codes EKG - CPT: 96153-[id number], Complete ([id number])
== END 2024-06-10 09:02 | disposition home or self-care (01) ==
PROVIDERS: PCP Internal Medicine; Visit Provider Internal Medicine
DX: I25.10 Atherosclerotic heart disease of native coronary artery without angina pectoris (principal); E66.01 Morbid (severe) obesity due to excess calories
CPT/HCPCS: 93010; 99204

== ENCOUNTER → 2024-06-10 08:10 | Outpatient (BNVA) | payer OTHER, SELFPAY | PROVIDERS: PCP Internal Medicine; Visit Provider Internal Medicine | DX: I25.10 Atherosclerotic heart disease of native coronary artery without angina pectoris (principal); I10 Essential (primary) hypertension; E66.01 Morbid (severe) obesity due to excess calories; Z68.42 Body mass index [BMI] 45.0-49.9, adult; Z82.49 Family history of ischemic heart disease and other diseases of the circulatory system; Z98.61 Coronary angioplasty status | CPT/HCPCS: 93005; 99202 ==

== ENCOUNTER 2024-06-12 12:58 | Outpatient (REF) | payer OTHER, SELFPAY ==
--- NOTE | 2024-06-12 13:01 | EMG_ITS ---
Chief complaint: Numbness right hand, 1st to 4th digits. Reason for referral: Evaluate for Carpal Tunnel Syndrome versus radiculopathy Referred by: Ovidio RAHMAN Procedure done: Right upper extremity NCS/EMG Precautions and/or limitations: None The limb temperature was monitored continuously and remained between 32-36 degrees C during the performance of the NCS. Nerve Conduction Studies Anti Sensory Summary Table ?Stim Site NR Onset (ms) Norm Onset (ms) Peak (ms) Norm Peak (ms) O-P Amp (?V) Norm O-P Amp Site1 Site2 Delta-0 (ms) Dist (cm) Pedro (m/s) Norm Pedro (m/s) Right Median Anti Sensory (2nd Digit) Wrist NR <3.6 >10 Wrist 2nd Digit 14.0 Right Radial Anti Sensory (Thumb) Forearm ? 1.3 1.9 <3.1 18.8 Forearm Thumb 1.3 0.0 Right Ulnar Anti Sensory (5th Digit) Wrist ? 1.9 2.8 <3.7 21.5 >15.0 Wrist 5th Digit 1.9 14.0 74 Motor Summary Table ?Stim Site NR Onset (ms) Norm Onset (ms) O-P Amp (mV) Norm O-P Amp iAmp (mV) Amp (1st) (%) Site1 Site2 Delta-0 (ms) Dist (cm) Pedro (m/s) Norm Pedro (m/s) Right Median Motor (Abd Poll Brev) Wrist NR <3.9 >4.5 Elbow Wrist 0.0 >45 Elbow NR Right Ulnar Motor (Abd Dig Minimi) Wrist ? 3.0 <3.0 7.5 >5 10.2 100.0 B Elbow Wrist 4.0 21.5 54 >45 B Elbow ? 7.0 7.5 10.0 100.0 A Elbow B Elbow 1.0 10.0 100 >45 A Elbow ? 8.0 7.8 10.4 104.0 EMG ?Side Muscle Nerve Root Ins Act Fibs Psw Amp Dur Poly Recrt Int Pat Comment Right 1stDorInt Ulnar C8-T1 Nml Nml Nml Nml Nml 0 Nml Complete Right FlexCarRad Median C6-7 Nml Nml Nml Nml Nml 0 Nml Complete Right Biceps Musculocut C5-6 Nml Nml Nml Nml Nml 0 Nml Complete Right Triceps Radial C6-7-8 Nml Nml Nml Nml Nml 0 Nml Complete Right Deltoid Axillary C5-6 Nml Nml Nml Nml Nml 0 Nml Complete FINDINGS: Right median motor nerve showed no response. Right median sensory nerve showed no response. All other nerves tested were within normal. Concentric needle EMG was performed in selected muscles of the right upper extremity. Study did not reveal signs of electric abnormalities as shown in the table above. IMPRESSION: 1. This is an abnormal study. 2. There is electrodiagnostic evidence for right severe median neuropathy at the wrist, consistent with carpal tunnel syndrome. 3. There is no electrodiagnostic evidence for ulnar neuropathy, brachial plexopathy, or cervical radiculopathy. Thank you for your kind referral. Jazmine Mauricio MD, JEN Board Certified, [place] [employer] and Rehabilitation (ABPMR) Board Certified, [place] Board of Electrodiagnostic Medicine (ABEM) CODIN [id number] MTDD
== END 2024-06-12 12:59 | disposition home or self-care (01) ==
LOC: HO.NEURO 12:58
PROVIDERS: PCP Internal Medicine; Visit Provider Physician Assistant
DX: M54.12 Radiculopathy, cervical region (principal)
CPT/HCPCS: 95886; 95909

== ENCOUNTER → 2024-06-12 13:01 | Outpatient (BNV) | payer OTHER, SELFPAY | PROVIDERS: PCP Internal Medicine; Visit Provider Physical Medicine & Rehabilitation | DX: G56.01 Carpal tunnel syndrome, right upper limb (principal) | CPT/HCPCS: 95886; 95909 ==

== ENCOUNTER 2024-07-01 12:47 | Outpatient (AMB) | payer OTHER, SELFPAY ==
[2024-07-01 12:50] VITALS: BP 152/82; PULSE 120; O2SAT 99
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
== END 2024-07-01 13:57 | disposition home or self-care (01) ==
PROVIDERS: PCP Internal Medicine; Visit Provider Internal Medicine
DX: M25.511 Pain in right shoulder (principal); S82.292B Other fracture of shaft of left tibia, initial encounter for open fracture type I or II; V89.2XXA Person injured in unspecified motor-vehicle accident, traffic, initial encounter; G89.29 Other chronic pain; M54.12 Radiculopathy, cervical region; G56.03 Carpal tunnel syndrome, bilateral upper limbs

== ENCOUNTER → 2024-07-01 12:47 | Outpatient (BNVA) | payer OTHER, SELFPAY | PROVIDERS: PCP Internal Medicine; Visit Provider Internal Medicine | DX: S82.292B Other fracture of shaft of left tibia, initial encounter for open fracture type I or II (principal); G56.03 Carpal tunnel syndrome, bilateral upper limbs; R52 Pain, unspecified | CPT/HCPCS: 99212 ==

== ENCOUNTER 2024-07-29 11:16 | Outpatient (AMB) | payer OTHER, SELFPAY ==
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
[2024-07-29 11:48] VITALS: BMI 45.0
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
== END 2024-07-29 12:17 | disposition home or self-care (01) ==
PROVIDERS: PCP Internal Medicine; Visit Provider Physician Assistant
DX: S82.422A Displaced transverse fracture of shaft of left fibula, initial encounter for closed fracture (principal)
CPT/HCPCS: 99203; G2211

== ENCOUNTER → 2024-07-29 11:22 | Outpatient (BNV) | payer OTHER, SELFPAY | PROVIDERS: Visit Provider Radiology Diagnostic Radiology | DX: M25.472 Effusion, left ankle (principal); S82.432A Displaced oblique fracture of shaft of left fibula, initial encounter for closed fracture | CPT/HCPCS: 73590; 73610 ==

== ENCOUNTER 2024-07-29 11:25 | Outpatient (REF) | payer OTHER, SELFPAY ==
--- NOTE | ~2024-07-29 | XR_ITS ---
CLINICAL HISTORY: M79.605 - Pain in left leg 2 view left tibia-fibula Comparison: None Findings There is a transverse fracture through the proximal 1/3 of the left fibula. Distal fragment is displaced anteriorly by 1/2 shaft width and medially by 1/2 shaft width. No fracture deformity of the tibia seen. No joint effusion. No significant arthritic change. No radiopaque foreign body. IMPRESSION: 1. Proximal left fibula shaft fracture with mild displacement. This document has been electronically signed by: Ramon Mcwilliams MD on 07/31/2024 18:22:29
--- NOTE | ~2024-07-29 | XR_ITS ---
CLINICAL HISTORY: M25.572 - Pain in left ankle and joints of left foot 3 view left ankle Comparison: None Findings: There is a small ossific density inferior to the medial malleolus, likely small ossicle given its rounded appearance. No acute fracture deformity. No significant arthritic change or erosions. Probable small joint effusion. No radiopaque foreign body. Soft tissue swelling about the ankle present. IMPRESSION: 1. Small joint effusion. This document has been electronically signed by: Ramon Mcwilliams MD on 07/31/2024 18:21:38
== END 2024-07-29 11:26 | disposition home or self-care (01) ==
LOC: HO.HOSX 11:25
PROVIDERS: Visit Provider Physician Assistant
DX: M25.572 Pain in left ankle and joints of left foot (principal); M79.605 Pain in left leg
CPT/HCPCS: 73590; 73610

== ENCOUNTER 2024-07-30 10:15 | Day surgery (SDC) | payer OTHER, SELFPAY ==
[2024-07-28 09:29] VITALS: BMI 45.2
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
--- NOTE | 2024-07-30 07:32 | PM.DS ---
DS: Providers Provider Date of Service: 07/30/24 Date of discharge: 07/30/24 Primary care physician: Aron Alexandra MD DS: Summary Time Attestation Discharge Coordination Time (in mins): 15 Quality: Safe Use of Opioids Does Pt have an Active Cancer Diagnosis on the Problem List?: No Quality: Stroke Does the patient have a stroke diagnosis?: No Physical Exam Vital Signs: Vital Signs: BMI result Body Mass Index 45.2 Discharge Plan Discharge Patient Disposition: Home, Self-Care Referrals: Aron Alexandra MD [Primary Care Provider] - 1 Week Discharge Medications: New tramadol 50 mg tablet 50 mg PO Q8H PRN (Reason: pain) Qty: 20 0RF Continued nitroglycerin 0.4 mg tablet, sublingual 0.4 mg sublingual .Q5MINS PRN (Reason: Chest Pain) Patient Comments: last used 4-5 months ago lisinopril 20 mg tablet 20 mg PO DAILY ezetimibe 10 mg tablet 10 mg PO DAILY atorvastatin 80 mg tablet 80 mg PO BEDTIME carvedilol 6.25 mg tablet 6.25 mg PO ONCE Held oxycodone-acetaminophen [Percocet] 5-325 mg tablet 2 tab PO Q8H 7 Days Qty: 42 0RF Hold Instructions: Resume on 07/30/24. This was filled 4 weeks ago for 7 days supply aspirin 81 mg tablet,chewable 81 mg PO DAILY Hold Instructions: Resume on 08/02/24. Discharge Orders: Discharge Order (Routine); Ordered 07/30/24 Ordered By: Manny Davis Diet: Advance to usual diet Activity on Discharge: As tolerated Activity Restrictions/Additional Instructions: After your spinal surgery we ask you to observe the following restrictions/guidelines: Activity: It is normal to feel some discomfort as you increase your activity, but that will improve with time. We ask you avoid heavy lifting or acitivities that cause pain. As a general rule, 8lbs is a safe limit for lifting right after surgery. Walk as much as you feel comfortable but not to exhaustion. You will feel extra tired the first few days after surgery. Stay well hydrated. It is OK to walk up and down stairs You may return to driving when you are off narcotics (such as vicodin, oxycodone, dilaudid, etc), and you are back to normal functional capacity. If you have any concerns please check with office before driving. Return to work is specific to each patient and each surgery, so please speak with your doctor/PA at first follow up. Please bring paperwork such as FMLA at that time if you need it filled out. Medications: YOU MAY RESUME YOUR ASPIRIN 3 DAYS AFTER SURGERY We recommend you take 1,000mg Tylenol every 8 hours for the first few weeks after surgery, if you do not have any liver issues and can tolerate this medication. Do not exceed 4,000mg daily. We will give you a short supply of narcotics after surgery (usually one weeks worth). If you need more please call the office but do not use more than prescribed. You will need to give our office 48 hours notice if you need narcotics refilled and we do not fill narcotics on weekends or evenings. If you are on a narcotic, it is a good idea to take a stool softener such as colace or senna to avoid constipation If you take blood thinner such as aspirin, Plavix, Coumadin, Effient, Eliquis etc for conditions such as Afib, DVT, Pulmonary embolus, coronary disease, stents etc please speak with your surgeon about specific details as to when you can resume these medications. You can resume NSAIDs on post op day 1 (eg: Motrin, Naproxen, etc). Follow up: Please call the office, , after surgery to arrange a 3 week follow up for wound check. Wound Care: You may remove your dressing on the first day after surgery. ?You may ?leave open to air. Please do not remove the steri strips underneath. they will fall off on their own in one week. IT IS NORMAL FOR THE WOUND TO OOZE OR BE BLOODY FOR A FEW DAYS AFTER SURGERY. ?IF THIS HAPPENS JUST PLACE NEW DRESSING OVER IT TO AVOID STAINING CLOTHES. You may shower on post op day # 1 We ask that you do not let the water soak the wound. If it does get wet, just towel dry lightly. Please do not scrub your incision or place any type of chemical/ointment on the wound. No tub baths, pools or jacuzzis for one month. If you have any leaking or redness from your wound, or fevers, please call the office. Print Language: Martiniquais
[2024-07-30 11:17] VITALS: BMI 43.6
[2024-07-30 11:36] VITALS: BP 147/115; PULSE 88; RESP 16; TEMP 36.7; O2SAT 96
--- NOTE | 2024-07-30 11:40 | MHC.SHP ---
Pre-Procedural Eval Section A - 24 Hr Update-Section A only Date of Service: 07/30/24 The patient is an INPATIENT: No Section B - Complete if H&P > 30 days Chief Complaint: Carpal tunnel syndrome, unspecified upper limb Details of Present Illness: Right carpal tunnel syndrome Allergies: Allergies Allergy/AdvReac Type Severity Reaction Status Date / Time No Known Allergies Allergy Verified 07/29/24 11:55 Review of Systems Sugical H&P ROS: Negative: Constitution, Cardiovascular, Respiratory, Neurological, Psychiatric, Hem-Onc, Allergic/Immunologic, Gastrointestinal, Genitourinary, Musculoskeletal, Integumentary, Endocrine and Eyes/Ears/Nose/Throat Exam Surgical H&P Exam: Normal: HEENT, Normal: Heart, Normal: Lungs, Normal: Extremities, Normal: Abdomen, Normal: Skin and Normal: Neurological (Awake, alert) Plan Diagnosis/Plan: Unchanged I have reviewed the history and physical and performed a pertinent physical examination on my patient. No changes have occurred unless specified. Right carpal tunnel release Time Spent With Patient Time: Total time managing care of this patient today _5___ minutes.
[2024-07-30] MEDS: ceFAZolin Sodium/Dextrose,Iso 2 GM/50 ML PIGGYBACK IV (12:47)
[2024-07-30 13:26] VITALS: BP 133/96; PULSE 82; RESP 16; TEMP 36.2; O2SAT 96
--- NOTE | 2024-07-30 14:31 | W.PM.OPN ---
Operative Note Operative Note Date of Service: 07/30/24 Narrative: Diagnosis: Right carpal tunnel syndrome Procedure: Right median nerve release Surgeon: Andrea Beckham MD PhD Description procedure: This 44-year-old male is suffering from a right carpal tunnel syndrome with pain, numbness and weakness. The patient was offered a decompression of the median nerve. The procedure complications were explained. The patient was consented. He was brought to the operating room, where moderate sedation was applied. Prepping and draping was done followed by time-out. Marcaine was injected into the mid volar region. A midvolar incision was made. The ligamentum carpi transversum was opened sharply until the median nerve became visible. A Metzenbaum scissor was used to decompress the median nerve proximally and distally over its trajectory. Significant compression was present. Hemostasis was done. The incision was closed with 3 interrupted sutures. A compressive OWEN wrap was used for hemostasis. All sponge and needle counts were correct. Patient was transported to the recovery room. Anesthesia: Moderate sedation and local anesthetic Blood loss: Minimal Complications: None Disposition: Discharge home
== END 2024-07-30 13:51 | disposition home or self-care (01) ==
PROVIDERS: PCP Internal Medicine; Visit Provider Neurological Surgery
PROC: (CPT 64721; principal; 2024-07-30 13:40)
DX: G56.01 Carpal tunnel syndrome, right upper limb (principal); R20.0 Anesthesia of skin; R53.1 Weakness; M25.511 Pain in right shoulder; M54.12 Radiculopathy, cervical region; I10 Essential (primary) hypertension; I25.10 Atherosclerotic heart disease of native coronary artery without angina pectoris; Z95.5 Presence of coronary angioplasty implant and graft; E66.01 Morbid (severe) obesity due to excess calories; Z79.899 Other long term (current) drug therapy; Z79.82 Long term (current) use of aspirin; Z79.1 Long term (current) use of non-steroidal anti-inflammatories (NSAID); Z98.890 Other specified postprocedural states
CPT/HCPCS: 64721; J0665; J0690; J2003

== ENCOUNTER → 2024-07-30 10:15 | Outpatient (BNV) | payer OTHER, SELFPAY | PROVIDERS: PCP Internal Medicine; Visit Provider Physician Assistant | DX: G56.01 Carpal tunnel syndrome, right upper limb (principal) | CPT/HCPCS: 64721; 99499 ==

== ENCOUNTER → 2024-07-31 09:01 | Outpatient (REF) | payer OTHER, SELFPAY ==
--- NOTE | 2024-07-31 09:04 | CA_ITS ---
Transthoracic Echocardiogram Patient (Last, First, Middle): Marko Gotti, Gender: Male Date of : 1980 Age: 44 Procedure Date: 07/31/2024 Procedure Type: Transthoracic Echocardiogram Location: OP Height: 175.26 cm Weight: 138.35 kg BSA: 2.47 m2 Heart Rate: bpm BP: 130 / 80 mmHg Railroad Track Inspector: TO Referring MD: Rupesh Owusu MD Symptoms: I25.10 - Atherosclerotic heart disease of [place] coronary artery without... Study Quality: Fair/Contrast ECG Rhythm: Sinus Conclusions: - The left ventricular systolic function is normal. The calculated ejection fraction is 61% by biplane method. - No obvious valvular pathology seen on this study. - There is mild dilatation of the ascending aorta measuring 4.10 cm. Findings Procedure Information Contrast agent, definity, is being given per protocol without apparent complications. Left Ventricle Normal left ventricular cavity size. There is normal left ventricular wall thickness. The left ventricular systolic function is normal. The calculated ejection fraction is 61% by biplane method. There is no evidence of regional wall motion abnormalities. Diastolic function is normal for age. There is mild septal asymmetric hypertrophy. Right Ventricle Normal right ventricular cavity size and systolic function. Atria Both atria are normal in size. Aortic Valve The aortic valve was not well visualized. There is no aortic valve stenosis. There is no aortic valve regurgitation. Mitral Valve The mitral valve appears normal. There is no mitral valve regurgitation. There is no mitral valve stenosis. Pulmonic Valve The pulmonic valve is likely normal. Tricuspid Valve There is trace tricuspid valve regurgitation. Tricuspid regurgitation envelope is inadequate for calculation of right ventricular systolic pressure. Great Vessels The aortic arch is normal in size. There is mild dilatation of the ascending aorta measuring 4.10 cm. Venous The inferior vena cava is normal in size and collapses less than 50% with inspiration. Pericardium/Pleural There is no evidence of pericardial effusion. Prior Study Comparison No prior study available for comparison. Recommendations, Care & Conclusions No obvious valvular pathology seen on this study. Measurements 2D Linear Measurements IVSd: 1.30 0.6-0.9/0.6-1.0 cm LVIDd: 4.62 3.9-5.3/4.2-5.9 cm LVIDd Index: 1.89 2.4-3.2/2.2-3.1 cm/m2 LVIDs: 3.29 2.0-3.6 cm LVPWd: 1.04 0.7-1.1 cm LA Diam: 4.00 2.7-3.8/3.0-4.0 cm LAIDs Index: 1.64 1.5-2.3 cm/m2 LV Mass: 248.08 67-162/88-224 g LV Mass Index: 101.67 43-95/49-115 g/m2 LVOT Diam: 2.60 3.0+(-)1.3 cm 2D Systolic Function EF 4C: 62.40 >55% EF 2C: 58.40 >55% EF BiP: 61.40 >55% Mitral Valve MV Pk E: 0.75 MV PK A: 0.54 MV Decel Time: 175.00 E/A: 1.40 E'Lateral: 6.96 E'Medial: 5.98 E/E' Med: 12.50 E/E' Lat: 10.80 PHT: 51.00 MVA PHT: 4.31 Decel [place]: 4.28 Aortic Valve AoV Pk Pedro: 1.00 AoV Mn Pedro: 0.73 AoV VTI: 0.17 AoV Pk Grad: 4.00 Aov Mn Grad: 2.00 ANAMIKA Cont.VTI: 5.72 LVOT LVOT Pk Pedro: 1.01 LVOT Mn Pedro: 0.63 LVOT VTI: 0.18 LVOT Pk Grad: 4.00 LVOT Mn Grad: 2.00 LVOT Diam: 2.60 LVOT Area: 5.31 Diastolic Function MV Pk E: 0.75 MV Pk A: 0.54 E/A: 1.40 E'Medial: 5.98 E/E' Med: 12.50 E' Laterial: 6.96 E/E' Lat: 10.80 Right Ventricle TAPSE (mm): 26.20 TVS' Pedro: 15.40 Tricuspid Valve RA Press: 3.00 Great Vessels Aorta Sinus of Valsalva: 4.04 2.0-3.5 cm Ao Asc: 4.10 2.1-3.4 cm Ao Arch: 3.30 Updated in Other Vendor System with Status of Final Rupesh Owusu MD electronically signed on 08/02/2024 11:10:47 AM with status of Final
== END ==
LOC: HO.CARD 09:01
PROVIDERS: PCP Internal Medicine; Visit Provider Internal Medicine
DX: I25.10 Atherosclerotic heart disease of native coronary artery without angina pectoris (principal)
CPT/HCPCS: 93306; Q9957

== ENCOUNTER → 2024-07-31 09:04 | Outpatient (BNV) | payer OTHER, SELFPAY | PROVIDERS: PCP Internal Medicine; Visit Provider Internal Medicine | DX: I42.2 Other hypertrophic cardiomyopathy (principal); I77.810 Thoracic aortic ectasia | CPT/HCPCS: 93306 ==

== ENCOUNTER 2024-08-10 09:11 | Outpatient (AMB) | payer OTHER, SELFPAY ==
--- NOTE | 2024-08-10 09:14 | HO.SPINEOV ---
Intake Visit Reasons: suture removal Intake Note: Mr. Gotti is here today to have his sutures removed. 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 He states he has had no issues with his hand since the surgery other than a little bit of drainage in the center of his incision which self-resolved. Overall he was doing very well, and reports that his symptoms feel like they are starting to dissipate. No new neurological deficits. The patient is able to curl his fingertips to the distal palmar crease without issue. I removed 3 simple interrupted mattress sutures during this visit. I would like to follow up with Marko again in 6 weeks to ensure that he continues to make satisfactory progress. Manny Beckham MD,PhD [facility] Coding Level of Care Code Global (91907) Diagnoses S/P carpal tunnel release Z98.890
== END 2024-08-10 09:37 | disposition home or self-care (01) ==
PROVIDERS: PCP Internal Medicine; Visit Provider Physician Assistant
DX: Z98.890 Other specified postprocedural states (principal)
CPT/HCPCS: 99024

== ENCOUNTER → 2024-08-10 09:11 | Outpatient (BNVA) | payer OTHER, SELFPAY | PROVIDERS: PCP Internal Medicine; Visit Provider Physician Assistant ==

== ENCOUNTER 2024-08-19 08:15 | Outpatient (AMB) | payer OTHER, SELFPAY ==
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
== END 2024-08-19 09:04 | disposition home or self-care (01) ==
PROVIDERS: PCP Internal Medicine; Visit Provider Physician Assistant
DX: S82.832D Other fracture of upper and lower end of left fibula, subsequent encounter for closed fracture with routine healing (principal); M25.362 Other instability, left knee
CPT/HCPCS: 99213

== ENCOUNTER → 2024-08-19 08:17 | Outpatient (BNV) | payer OTHER, SELFPAY | PROVIDERS: Visit Provider Radiology Diagnostic Radiology | DX: S89.302A Unspecified physeal fracture of lower end of left fibula, initial encounter for closed fracture (principal); S89.102A Unspecified physeal fracture of lower end of left tibia, initial encounter for closed fracture; S82.52XA Displaced fracture of medial malleolus of left tibia, initial encounter for closed fracture | CPT/HCPCS: 73562; 73590 ==

== ENCOUNTER 2024-08-19 08:41 | Outpatient (REF) | payer OTHER, SELFPAY ==
--- NOTE | ~2024-08-19 | XR_ITS ---
EXAMINATION: XR TIBIA AND FIBULA, LEFT CLINICAL INFORMATION: Pain in left leg. COMPARISON: 07/29/2024. TECHNIQUE: AP and lateral views of the left tibia and fibula were obtained. FINDINGS: Redemonstration of a proximal diaphyseal fibular transverse fracture, with minimal combination, no significant overriding or angulation, and approximately 8 mm of anterior and 7 mm of lateral displacement of the distal fragment. Tiny avulsion fracture again partially seen arising from the medial malleolus. No additional fracture, or focal bony lesion. The imaged joints appear intact. XR/XR tibia fibula LT 2V IMPRESSION: 1. Redemonstration of proximal fibular diaphyseal fracture with mild anteromedial displacement as discussed. 2. Redemonstration of tiny avulsion fracture arising from the medial malleolus. This is only partially imaged. 3. No additional fractures or focal bony abnormalities. Electronically signed by: Maxime Cee MD 08/19/2024 03:53 PM [facility]
--- NOTE | ~2024-08-19 | XR_ITS ---
EXAMINATION: XR KNEE, LEFT CLINICAL INFORMATION: M25.562 - Pain in left knee COMPARISON: None available. TECHNIQUE: AP view bilateral knees, and lateral and patellofemoral views left knee. FINDINGS: LEFT KNEE: Proximal fibular diaphyseal fracture with displacement as described on the separate x-ray of same day. No additional fracture, dislocation, or suspicious bone lesion. Minimal joint space narrowing in the medial compartment of the left knee. Lateral compartment, and patellofemoral compartments appear preserved. There is a moderate sized suprapatellar joint effusion. The soft tissues demonstrate mild prevertebral soft tissue swelling. AP image of the RIGHT knee demonstrates minimal medial compartment narrowing but no acute finding. XR/XR knee LT 3V IMPRESSION: 1. No acute fracture or dislocation of the left knee. Displaced proximal fibular diaphyseal fracture as discussed in the tibia and fibula report. 2. Minimal joint space narrowing medial compartment. 3. Moderate sized suprapatellar joint effusion. Mild anterior soft tissue swelling. Electronically signed by: Maxime Cee MD 08/19/2024 03:47 PM [facility]
--- OUTSIDE RECORDS SUMMARY | 2024-08-19 09:19 | XMS_ITS | Encounter Summary ---
Author Organization [facility] Address [address] [place] [address] Care Team Providers Care Banana Ripening Room Supervisor Name Role Phone Aron Alexandra Primary Care Provider [phone] Reason for Referral * Physical Therapy (Routine) - Closed Specialty Diagnoses / Procedures Referred By Jose ace Referred To Contact Physical Therapy Diagnoses Displaced spiral fracture of shaft of left fibula, initial encounter for open fracture type I or II Latanya Gr PA [address] [place] [address] Phone: tel: fax: Referral ID Status Reason Start Date Expiration Date V isits Requested Visits Authorized [id number] Closed Specialty Services Required 07/27/2024 01/26/2026 6 0 Reason for Visit * Reason Comments Post-op * Consultation (Routine) - Authorized Specialty Diagnoses / Procedures Referred By Jose ace Referred To Contact Orthopedic Surgery / Orthopaedic Surgery Diagnoses open fibula fx (doi 06/26) Procedures [place] POST-OP FOLLOW-UP VISIT POST OP Aron Alexandra [address] [place] [address] Phone: tel: fax: Latanya Gr PA [address] [place] [address] Phone: tel: fax: Referral ID Status Reason Start Date Expiration Date V isits Requested Visits Authorized [id number] Authorized 07/02/2024 07/02/2025 6 6 Encounter Details Date Type Department Care Team (Late st Contact Info) Description 07/27/2024 1:30 PM EST Follow-Up [facility] [address] [place] [address] [phone] Latanya Gr PA [address] [place] [address] Displaced spiral fracture of shaft of left fibula, subsequent encounter for open fracture type I or II with routine healing (Primary Dx); Postop check Social History Tobacco Use Types Packs/Day Years Used Date Smoking Tobacco: Former Smokeless Tobacco: Never Comments:: Alcohol Use Standard Drinks/Week Comments Yes 0 (1 standard drink = 0.6 oz pur e alcohol) Social rare Sex and Gender Information Value Date Recorded Sex Assigned at Male 06/26/2024 5:27 PM EST Legal Sex Male 12:08 AM EDT Gender Identity Male 07/21/2024 12:19 PM EST Sexual Orientation Not on file documented as of this encounter Progress Notes * LACEY Johnson - 07/27/2024 2:05 PM EST Images from the original note were not included. Date of Visit: 07/27/2024 Date of Surgery: 06/27/2024 ([place]) Procedure: Irrigation and debridement of left open proximal fibula shaft fracture with complex wound closure and application of NPWT History of Present Illness: Marko Gotti is here today for evaluation after the above-named procedure. He is accompanied attoday's visit by his family. He notes that he has been doing better since I last saw him 10 days ago. His pain continues to gradually improve, currently rates his pain as a 3 out of 10. He notes thathis leg did become more swollen a few days ago after increasing his activity. He is hopeful that his sutures will be able to be removed today and additionally inquires about the results of today's x-rays. Otherwise, no new issues or concerns reported. Denies numbness, paresthesias distally. Physical Exam: General: A&Ox 3, well appearing, NAD HEENT: NCAT, EOMI Pulm: respirations unlabored on room air Left lower extremity: Incision/wound over the anterolateral aspect of proximal tibia/calf appears well-approximated with sutures intact. Eschar noted at midpoint of incision site, appears smaller than prior exams and is healing well at this time. Additionally noted is surrounding abrasion (see clinical image below). No evidence of surrounding erythema, drainage, wound dehiscence, or signs of acute infection. Moderate swelling about the left knee and calf. Otherwise, visible skin is pink, warm, dry, and intact without lesions or rashes. No obvious visible deformity. Minimally tender to palpation over incision/wound and calf. Otherwise, bony landmarks of the knee and ankle are NT to palpation. Thigh and calf are soft and compressible. ROM of the left knee and ankle limited secondary to stiffness, pain. Wiggles toes. Presenting today in a wheelchair; gait not assessed. NVI with SILT throughout DP/SP/S/S nerve distributions. Foot warm, well-perfused. Imaging: X-rays left tibia and fibula were obtained today and reviewed by me. They show minimally displaced left proximal fibular shaft fracture; no change of fracture alignment, which remains withinacceptable parameters Assessment + Plan: Marko Lopez Shen is here today for follow up 4 weeks after irrigation and debridement of the left open proximal fibula shaft fracture with complex wound closure and application of NPWT by Dr. Briceno. Clinically appears to be doing well postoperatively. On exam, incision site/wound appears well- approximated with sutures intact. Wound is healing well at this time. All sutures removed under aseptic technique in the office today. Okay to leave incision site open to the air. May shower, no baths or soaking. Advised against applying any lotions, ointments, creams to incision/wound. We reviewed today's imaging and discussed discussed the typical rehab plan/prognosis in detail. He may continue WBAT left LE with UE support as needed. Advised patient to listen to their body and rest as needed. Recommend ice and elevation to help minimize pain and swelling. May additionally use Tylenol and/or Motrin as needed for pain reviewed appropriate dosing. Continue ASA 81 mg twice daily as DVT prophylaxis. Remains out of work at this time. Estimate that he may be able to return to work in some capacity in 2 to 3 months. Patient or HCP may call with any issues or concerns. Follow-up in 4 weeks with XR left tibia (2 view) documented in this encounter Plan of Treatment Upcoming Encounters Date Type Department Care Team (Late st Contact Info) Description 08/27/2024 1:30 PM EST Follow-Up [facility] [address] [place] [address] Latanya Gr PA [address] [place] [address] Scheduled Referrals Name Type Priority Associated Diagnoses Order Schedule Ambulatory referral to Physical Therapy Outpatient Referral Routine Displaced spiral fracture of shaft of left fibula, subsequent encounter for open fracture type I or II with routine healing Expected: 07/27/2024, Expires: 01/24/2025 documented as of this encounter Results * Due to [place] state law, this organization might not be sharing negative HIV tests. * XR Tibia Fibula 2 vw Left (07/27/2024 1:48 PM EST) Anatomical Region Laterality Modality Lower Extremities, Lower Leg Left Com puted Radiography 07/29/2024 6:44 AM EST Impressions 07/29/2024 6:46 AM EST FINDINGS/IMPRESSION: Similar alignment of the mildly medially and anteriorly displaced and medially angulated comminuted proximal fibular diaphysis fracture. ??No significant callus. ??No new fractures. ??Small ossicle subjacent to the medial malleolus may represent sequelae of chronic avulsion injury. ??Small posterior calcaneal spur. ??Mild soft tissue swelling and edema. ?? If this radiology report contains a blank impression section, it is an incomplete radiology report. ??Please contact the interpreting radiologist or applicable radiology division as soon as possible to obtain the completed interpretation. ? Workstation ID: [id number] Narrative 07/29/2024 6:46 AM EST COMPARISON: 07/02/2024. Resulting Agency Comment [id number] Procedure Note Maxime Gray MD - 07/29/2024 COMPARISON: 07/02/2024. IMPRESSION: FINDINGS/IMPRESSION: Similar alignment of the mildly medially and anteriorly displaced andmedially angulated comminuted proximal fibular diaphysis fracture. Nosignificant callus. No new fractures. Small ossicle subjacent to themedial malleolus may represent sequelae of chronic avulsion injury. Smallposterior calcaneal spur. Mild soft tissue swelling and edema. If this radiology report contains a blank impression section, it is anincomplete radiology report. Please contact the interpreting radiologistor applicable radiology division as soon as possible to obtain thecompleted interpretation. Workstation ID: [id number] Latanya RAHMAN IMG XR PROCEDURES Final R esult documented in this encounter Visit Diagnoses Diagnosis Displaced spiral fracture of shaft of left fibula, subsequent encounter for open fracture type I or II with routine healing- Primary Postop check Follow-up examination, following unspecified surgery documented in this encounter Care Teams Banana Ripening Room Supervisor Relationship Specialty Start Date End Date Aron Alexandra [address] [place] [address] PCP - General Internal Medicine 06/29/24 documented as of this encounter
--- OUTSIDE RECORDS SUMMARY | 2024-08-19 09:19 | XMS_ITS | Clinical Summary ---
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 Performing: Loreta Slade MD on Resulting Physician: Khoa Marino MD on [email or web address] Narrative Procedure Note Khoa Marino MD - 07/16/2024 IMPRESSION: Exam Information: A erbfh-vn-yret ultrasound exam was performed of the peritoneal space,pericardial space and pleural spaces to evaluated for free fluid. Viewsof the following areas were attempted: subxiphoid, Rashid''s pouch,spleno-renal recess, superior colic gutters, retro-vesicular area and pleural spaces bilaterally.. Indication: The ultrasound was performed with the following indication(s) Trauma Views: The following views were obtained Bilateral Thorax ,Subxiphoid(cardiac),Rashid''s pouch (RUQ),Perisplenic (LUQ),Suprapubic Findings: Right lung sliding Present Left lung sliding Present Pericardial space Fluid absent Rashid''s pouch (RUQ) Indeterminate Right pleural space N/A not evaluated Splenorenal fossa (LUQ) Fluid absent Left pleural space Fluid absent Retrovesicular space Fluid absent Other finding(s) Impression: - Indeterminate . . All images have been reviewed by me and I agree with or have changedthe resident? s findings as written above Limited ultrasounds performed in the Emergency Department are performed byemergency physicians at the patients bedside to address specific clinicalquestions. Additional imaging or testing may be required. Electronically Signed by the following: Performing: Loreta Slade MD on Resulting Physician: Khoa Marino MD on [email or web address] us Historical Conversion Provider IMG US PROCEDURES Final Result * HEART & VASCULAR - SCANNED (06/26/2024) Only the most recent of2 resultswithin the time period is included. 

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
== END 2024-08-19 08:42 | disposition home or self-care (01) ==
LOC: HO.HOSX 08:41
PROVIDERS: Visit Provider Physician Assistant
DX: M79.605 Pain in left leg (principal); M25.362 Other instability, left knee; M25.562 Pain in left knee; S82.832D Other fracture of upper and lower end of left fibula, subsequent encounter for closed fracture with routine healing; E78.5 Hyperlipidemia, unspecified; Z79.899 Other long term (current) drug therapy; Z98.890 Other specified postprocedural states
CPT/HCPCS: 73562; 73590; 96127; 99212

== ENCOUNTER 2024-08-19 12:51 | Outpatient (AMB) | payer OTHER, SELFPAY ==
[2024-08-19 13:01] VITALS: BP 128/84; PULSE 85; O2SAT 94
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
--- OUTSIDE RECORDS SUMMARY | 2024-08-19 14:57 | XMS_ITS | Clinical Summary ---
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 06/29/24
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
--- OUTSIDE RECORDS SUMMARY | 2024-08-19 14:57 | XMS_ITS | Encounter Summary ---
Author Organization [facility] Address [address] [place] [address] Care Team Providers Care Bumper Operator Name Role Phone Aron Alexandra Primary Care Provider [phone] Reason for Referral * Physical Therapy (Routine) - Closed Specialty Diagnoses / Procedures Referred By Jose ace Referred To Contact Physical Therapy Diagnoses Displaced spiral fracture of shaft of left fibula, initial encounter for open fracture type I or II Latanya Gr PA [address] [place] [id number] Phone: tel: fax: Referral ID Status Reason Start Date Expiration Date V isits Requested Visits Authorized [id number] Closed Specialty Services Required 07/27/2024 01/26/2026 6 0 Reason for Visit * Reason Comments Post-op * Consultation (Routine) - Authorized Specialty Diagnoses / Procedures Referred By Jose ace Referred To Contact Orthopedic Surgery / Orthopaedic Surgery Diagnoses open fibula fx (doi 06/26) Procedures NE POST-OP FOLLOW-UP VISIT POST OP Aron Alexandra [address] [place] [address] Phone: tel: fax: Latanya Gr PA [address] [place] [id number] Phone: tel: fax: Referral ID Status Reason Start Date Expiration Date V isits Requested Visits Authorized [id number] Authorized 07/02/2024 07/02/2025 6 6 Encounter Details Date Type Department Care Team (Late st Contact Info) Description 07/27/2024 1:30 PM EST Follow-Up [facility] [address] [place] [address] [phone] Latanya Gr PA [address] [place] [address] Displaced spiral fracture of shaft of left [...] Description 08/27/2024 1:30 PM EST Follow-Up [facility] [address] [place] [address] Latanya Gr PA [address] [place] [address] Scheduled Referrals Name Type Priority Associated Diagnoses Order Schedule Ambulatory referral to Physical Therapy Outpatient Referral Routine Displaced spiral fracture of shaft of left fibula, subsequent encounter for open fracture type I or II with routine healing Expected: 07/27/2024, Expires: 01/24/2025 documented as of this encounter Results * Due to [place] state law, this organization might not be [...] obtain the completed interpretation. ? Workstation ID: [id number] Narrative 07/29/2024 6:46 AM EST COMPARISON: 07/02/2024. Resulting Agency Comment [id number] Procedure Note Maxime Gray MD - 07/29/2024 [...] possible to obtain thecompleted interpretation. Workstation ID: [id number] Latanya RAHMAN IMG XR PROCEDURES Final R esult documented in this encounter Visit Diagnoses Diagnosis Displaced spiral fracture of shaft of left fibula, subsequent encounter for open fracture type I or II with routine healing- Primary Postop check Follow-up examination, following unspecified surgery documented in this encounter Care Teams Bumper Operator Relationship Specialty Start Date End Date Aron Alexandra [address] [place] [address] PCP - General Internal Medicine 06/29/24 documented as of this encounter
== END 2024-08-19 13:51 | disposition home or self-care (01) ==
PROVIDERS: PCP Internal Medicine
DX: E78.5 Hyperlipidemia, unspecified (principal); Z98.890 Other specified postprocedural states; M25.362 Other instability, left knee; S82.832D Other fracture of upper and lower end of left fibula, subsequent encounter for closed fracture with routine healing

== ENCOUNTER 2024-08-21 08:55 | Outpatient (REF) | payer OTHER, SELFPAY ==
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
--- OUTSIDE RECORDS SUMMARY | 2024-08-21 09:21 | XMS_ITS | Clinical Summary ---
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 Start Date End Date Aron Alexandra [address] [place] [address] PCP - General Internal Medicine 06/29/24
--- OUTSIDE RECORDS SUMMARY | 2024-08-21 09:21 | XMS_ITS | Encounter Summary ---
Author Organization [facility] Address [address] [place] [address] Care Team Providers Care Marketing Editor Name Role Phone Aron Alexandra Primary Care Provider [phone] Reason for Referral * Physical Therapy (Routine) - Closed Specialty Diagnoses / Procedures Referred By Jose ace Referred To Contact Physical Therapy Diagnoses Displaced spiral fracture of shaft of left fibula, initial encounter for open fracture type I or II Latanya Gr PA [address] [place] [id number] Phone: tel: fax: Referral ID Status Reason Start Date Expiration Date V isits Requested Visits Authorized [id number] Closed Specialty Services Required 07/27/2024 01/26/2026 6 0 Reason for Visit * Reason Comments Post-op * Consultation (Routine) - Authorized Specialty Diagnoses / Procedures Referred By Jose ace Referred To Contact Orthopedic Surgery / Orthopaedic Surgery Diagnoses open fibula fx (doi 06/26) Procedures [place] POST-OP FOLLOW-UP VISIT POST OP Aron Alexandra [address] [place] [address] Phone: tel: fax: Latanya Gr PA [address] [place] [phone] Phone: tel: fax: Referral ID Status Reason Start Date Expiration Date V isits Requested Visits Authorized [id number] Authorized 07/02/2024 07/02/2025 6 6 Encounter Details Date Type Department Care Team (Late st Contact Info) Description 07/27/2024 1:30 PM EST Follow-Up [facility] [address] [place] [address] [phone] Latanya Gr PA [address] [place] [address] Displaced spiral fracture of shaft of left [...] Info) Description 08/27/2024 1:30 PM EST Follow-Up [facility] [address] [place] [address] Latanya Gr PA [address] [place] [address] Scheduled Referrals Name Type Priority Associated Diagnoses Order Schedule Ambulatory referral to Physical Therapy Outpatient Referral Routine Displaced spiral fracture of shaft of left fibula, subsequent encounter for open fracture type I or II with routine healing Expected: 07/27/2024, Expires: 01/24/2025 documented as of this encounter Results * Due to [place] state law, this organization might not be [...] obtain the completed interpretation. ? Workstation ID: [id number] Narrative 07/29/2024 6:46 AM EST COMPARISON: 07/02/2024. Resulting Agency Comment [id number] Procedure Note Maxime Gray MD - 07/29/2024 [...] possible to obtain thecompleted interpretation. Workstation ID: [id number] Latanya RAHMAN IMG XR PROCEDURES Final R esult documented in this encounter Visit Diagnoses Diagnosis Displaced spiral fracture of shaft of left fibula, subsequent encounter for open fracture type I or II with routine healing- Primary Postop check Follow-up examination, following unspecified surgery documented in this encounter Care Teams Marketing Editor Relationship Specialty Start Date End Date Aron Alexandra [address] [place] [address] PCP - General Internal Medicine 06/29/24 documented as of this encounter
[2024-08-21 10:55] LABS: MANUAL DIFF FLAG NO
[2024-08-21 11:03] LABS: Basophils Percent Auto 0.5 % (0-2); Eosinophils Absolute Auto 0.1 X10*3/uL (0.0-0.4); Eosinophils Percent Auto 1.3 % (0-4); Imm Gran Abs Auto 0.02 X10*3/uL (0.00-0.03); Imm Gran Pct Auto 0.3 % (0.0-0.4); Lymphocytes Percent Auto 24.7 % (20-40); Mean Corpuscular HGB Conc 33.3 g/dl (31.0-36.0); Mean Corpuscular Hemoglobin 28.8 pg (27.0-33.0); Mean Corpuscular Volume 86.4 fL (80.0-98.0); Mean Platelet Volume 10.8 fL (9.4-12.4); Monocytes Absolute Auto 0.9 X10*3/uL (0.1-1.2); Neutrophils Absolute Auto 4.9 x10*3/uL (2.0-8.3); Neutrophils Percent Auto 62.2 % (45-73); Platelet Count 272 X10*3/uL (160-400); White Blood Count 7.9 X10*3/uL (4.8-10.8)
[2024-08-21 11:41] LABS: Alanine Aminotransferase 58 U/L (0-40); Albumin Level 4.5 g/dL (3.5-5.0); Alkaline Phosphatase 91 U/L (39-117); Anion Gap 13 (12-20); Aspartate Amino Transferase 30 U/L (5-37); Bilirubin Total 0.6 mg/dL (0.0-1.0); Blood Urea Nitrogen 15 mg/dL (9-16); Calcium 10.3 mg/dL (8.4-10.2); Carbon Dioxide 24 mmol/L (22-29); Chloride 107 mmol/L (96-108); Cholesterol 153 mg/dL (<200); Estimated Glomerular Filt Rate > 60; Glucose Fasting 129 mg/dL (60-99); HDL Cholesterol 41 mg/dL (>40); LDL Cholesterol Calculated 87 mg/dL (<100); Potassium 4.2 mmol/L (3.3-5.1); Sodium 140 mmol/L (135-145); TSH reflex Free T4 1.49 uIU/mL (0.32-4.0); Total Protein 7.9 g/dL (6.5-8.0); Triglycerides 126 mg/dL (<150); Vitamin D 25-OH Total 39.2 ng/mL (>30)
== END 2024-08-21 08:56 | disposition home or self-care (01) ==
LOC: HO.HMGCLDS 08:55
DX: G47.33 Obstructive sleep apnea (adult) (pediatric) (principal); E66.01 Morbid (severe) obesity due to excess calories; I10 Essential (primary) hypertension; I25.10 Atherosclerotic heart disease of native coronary artery without angina pectoris; E78.5 Hyperlipidemia, unspecified
CPT/HCPCS: 36415; 80053; 80061; 82306; 84443; 85025

== ENCOUNTER 2024-08-28 10:00 | Outpatient (RCR) | payer OTHER, SELFPAY ==
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
--- NOTE | 2024-09-25 13:57 | MHC.PT.DC ---
[facility] [place] [facility] [place] [facility] [place] [facility] [address] Dana Castrejon [address] [phone] F: [phone] F: [phone] F: [phone] F: [phone] Physical Therapy Discharge Report Diagnosis: This is a 44 yo male presenting to skilled PT with a script for s/p L proximal fibula fracture. Date of Surgery: Date of Evaluation: 08/03/24 Date of Discharge: 09/25/24 Treatments to Date: 7 Cancellations to Date: 0 No Shows to Date: 0 Discharge Status: Recommend MD Follow-up Discharge Summary: Patient came to 7 visits of PT with increasing pain at the knee and ankle with tx. I put him on a PT hold and educated him to follow up with ortho. Ortho performed an MRI demonstrating multiple ligament issues. Patient to return to PT when medically appropriate. DC to [facility], chart closed after 30 days. Electronically signed by: Jael Prakash, PT Please sign and return to therapist. Thank you for your referral.
== END 2024-09-25 13:57 | disposition home or self-care (01) ==
LOC: HO.PTCHIC 10:00
PROVIDERS: PCP Internal Medicine; Visit Provider Physician Assistant
DX: S82.832D Other fracture of upper and lower end of left fibula, subsequent encounter for closed fracture with routine healing (principal); V89.0XXD Person injured in unspecified motor-vehicle accident, nontraffic, subsequent encounter
CPT/HCPCS: 97110; 97140; 97162

== ENCOUNTER → 2024-09-03 18:40 | Outpatient (BNV) | payer OTHER, SELFPAY | PROVIDERS: Visit Provider Radiology Diagnostic Radiology | DX: M25.462 Effusion, left knee (principal); M71.22 Synovial cyst of popliteal space [Baker], left knee; S83.242A Other tear of medial meniscus, current injury, left knee, initial encounter | CPT/HCPCS: 73721 ==

== ENCOUNTER 2024-09-03 18:43 | Outpatient (REF) | payer OTHER, SELFPAY ==
--- NOTE | ~2024-09-03 | MR_ITS ---
EXAMINATION: MRI LEFT KNEE WITHOUT CONTRAST HISTORY: M25.362 - Other instability, left knee COMPARISON: Correlation is made with plain films of the left knee dated 08/19/2024. TECHNIQUE: Coronal T1 and fat-suppressed proton density, sagittal proton density and fat-suppressed proton density, and axial fat suppressed T2 weighted MR images of the left knee were obtained. FINDINGS: Bone marrow: Bone marrow signal intensity is normal. Joint effusion: There is a small joint effusion. Lynn's cyst: There is a small Lynn's cyst. Articular cartilage: There is a fissure involving the cartilage of the patella. Cartilage of the medial and lateral compartments is preserved. Muscles/soft tissues: The visualized muscles demonstrate normal signal intensity. Anterior cruciate ligament: Intact Posterior cruciate ligament: The posterior cruciate ligament appears discontinuous in its midportion, consistent with a tear. Medial collateral ligament: Intact Lateral collateral ligament: There is increased signal intensity and attenuation of the origin of the fibular collateral ligament consistent with a partial tear. Medial meniscus: The body of the medial meniscus is diminutive in size. There is a horizontally oriented linear focus of increased signal intensity in the body and posterior horn which contacts the inferior joint surface consistent with a tear. There is a vertically oriented focus of increased T2 signal intensity involving the anterior horn which contacts the superior joint surface consistent with an additional tear. There is an 11 mm ovoid focus of decreased signal intensity just superior to the root of the medial meniscus which may represent a meniscal fragment (series 12 image 20, series 8 image 17, and series 10 image 13). Lateral meniscus: Intact Flexor mechanism: The popliteus, gastrocnemius, and hamstring tendons are intact. Quadriceps tendon: Intact Patellar tendon: Intact Patellar retinacula: Intact MR/MR knee LT wo con IMPRESSION: 1. Small joint effusion and small Lynn's cyst. 2. Posterior cruciate ligament tear. 3. Partial tear of the origin of the fibular collateral ligament. 4. Complex tear of the medial meniscus as described. Possible meniscal fragment superior to the root of the medial meniscus. 5. Small cartilage fissure involving the patellar cartilage. Electronically signed by: Rusty Newsome MD 09/04/2024 08:00 AM [facility]
--- OUTSIDE RECORDS SUMMARY | 2024-09-03 18:45 | XMS_ITS | Clinical Summary ---
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 with Vitamin K antagonists (VKAS, e.g., Warfarin) is 2.0 to 3.5. Discuss the desired range with your doctor/care team. Blood Arterial blood specimen / Unknown Arterial Puncture / Unknown 06/26/2024 3:35 PM EST 06/26/2024 3:51 PM EST Caitlin Corcoran MD LAB BLOOD ORDERABLES Final R esult Performing Organization Address City/[facility]/ZIP Co de Phone Number [facility] [address] [place] [id number], * Type and Screen (06/26/2024 3:35 PM [...] TEST ORDERABL ES Edited Result - Final [facility] [address] [place] [address], * Ethanol (06/26/2024 3:35 PM EST) Ethanol <10 <10 mg/dL 06/26/2024 4:38 PM EST [facility] Blood Arterial blood specimen / Unknown Arterial Puncture / Unknown 06/26/2024 3:35 PM EST 06/26/2024 3:49 PM EST Caitlin Corcoran MD LAB BLOOD ORDERABLES Final R esult [facility] [address] [place] [address], [place] * ED POCUS eFAST (06/26/2024 3:20 PM EST) Anatomical Region Laterality Modality Body N/A Ultrasound 06/26/2024 3:20 PM EST Impressions 07/16/2024 9:30 PM EST Exam Information: A azhcr-hz-jgse ultrasound exam was performed of the peritoneal [...] on Resulting Physician: Khoa Marino MD on [email or web address] Narrative Procedure Note Khoa Marino MD - 07/16/2024 IMPRESSION: Exam Information: A vlftc-bg-eoon ultrasound exam was performed of the peritoneal [...] on Resulting Physician: Khoa Marino MD on [email or web address] us Historical Conversion Provider IMG US PROCEDURES Final Result * HEART & VASCULAR - SCANNED (06/26/2024) Only the most recent of2 resultswithin the time period is included. Anatomical Region Laterality Modality Other us Onbase Scan Harpal SCANNED PROCEDURES Final Resu lt from Last [address] [place] [address] [place] [address] [place] [address] [place] [address] Advance Directives * Full Code (Latest Code Status on File) Date Activated Date Inactivated Comments 06/27/2024 9:43 AM 06/28/2024 8:37 PM * Full Code Date Activated Date Inactivated Comments 06/27/2024 12:00 AM 06/27/2024 9:43 AM Care Teams Electrical Engineering Intern Relationship Specialty Start Date End Date Aron Alexandra [address] [place] [address] PCP - General Internal Medicine 06/29/24
--- OUTSIDE RECORDS SUMMARY | 2024-09-03 18:45 | XMS_ITS | Encounter Summary ---
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 Name Role Phone Ibrahima, Jessicarachel Primary Care Provider [phone] Reason for Visit * Reason Comments Post-op * Consultation (Routine) - Authorized Specialty Diagnoses / Procedures Referred By Jose ace Referred To Contact Orthopedic Surgery / Orthopaedic Surgery Diagnoses open fibula fx (doi 06/26) Procedures [place] POST-OP FOLLOW-UP VISIT POST OP Aron Alexandra [address] [place] [address] Phone: tel: fax: Latanya Gr PA [address] [place] [id number] Phone: tel: fax: Referral ID Status Reason Start Date Expiration Date V isits Requested Visits Authorized [id number] Authorized 07/02/2024 07/02/2025 6 6 Encounter Details Date Type Department Care Team (Late st Contact Info) Description 08/27/2024 1:30 PM EST Follow-Up [facility] [address] [place] [address] Latanya Gr PA [address] [place] [address] Displaced spiral fracture of shaft of left [...] encounter Progress Notes * LACEY Johnson - 08/27/2024 1:47 PM EST Images from the original note were not included. Date of Visit: 08/27/2024 Date of Surgery: 06/27/2024 ([place]) Procedure: Irrigation and debridement of left open proximal fibula shaft fracture with complex wound closure and application of NPWT History of Present Illness: Marko Gotti is here today for evaluation after the above-named procedure. He is accompanied attoday's visit by his family. He reports that he has been doing much better over the past month since he was last seen in clinic. He states that the scabbing has completely resolved over his anterior tibia. He notes that he saw his primary orthopedist at home with regard to since the sensation of his knee giving out. He anticipates that he will undergo a left knee MRI for further evaluation in thenear future. He inquires about the results of today's x-rays and if his fibular shaft fracture has healed more. Otherwise, no new issues or concerns reported. Denies numbness, paresthesias distally. Physical Exam: General: A&Ox 3, well appearing, NAD HEENT: NCAT, EOMI Pulm: respirations unlabored on room air Left lower extremity: Incision/wound over the anterolateral aspect of proximal tibia/calf appears well healed (see clinical image below). No evidence of surrounding erythema, drainage, or signs of acute infection. Minimal swelling about the left knee and calf. Otherwise, visible skin is pink, warm,dry, and intact without lesions or rashes. No obvious visible deformity. Bony landmarks of the kneeand ankle are NT to palpation. Thigh and calf are soft and compressible. ROM of the left knee and ankle limited secondary to stiffness. Wiggles toes. In office today utilizing crutches for support. Gait subtly antalgic. NVI with SILT distally. Foot warm, well-perfused. Imaging: X-rays left tibia and fibula were obtained today and reviewed by me. They show minimally displaced left proximal fibular shaft fracture; no change of fracture alignment, which remains withinacceptable parameters. Fracture appears to be healing well with small amount of bony callus formation Assessment + Plan: Marko Gotti is here today for follow up 2 months after irrigation and debridement of the left open proximal fibula shaft fracture with complex wound closure and application of NPWT by Dr. Ovidio Garibay. Clinically appears to be doing well. On exam, incision site/wound appears well-healed. We reviewed today's imaging and discussed discussed the typical rehab plan/prognosis in detail. He may continue WBAT left LE with UE support as needed. Encouraged to continue working with PT/OT; focusing on ROM, stretching, strengthening, gait/balance training. Advised patient to listen to their body and rest as needed. Recommend ice and elevation to help minimize pain and swelling. May additionally use Tylenol and/or Motrin as needed for pain. He remains out of work at this time. Estimate that he may be able to return to work in some capacity in 2 months. Patient or HCP may call with any issues or concerns. Follow-up in 2 months with XR left tibia (2 view) documented in this encounter Plan of Treatment Upcoming Encounters Date Type Department Care Team (Late st Contact Info) Description 10/26/2024 1:45 PM EDT Follow-Up [facility] [address] [place] [id number] Latanya rG PA [address] [place] [phone] documented as of this encounter Results * Due to [place] state law, this organization might not be sharing negative HIV tests. * XR Tibia Fibula 2 vw Left (08/27/2024 1:18 PM EST) Anatomical Region Laterality Modality Lower [...] obtain the completed interpretation. ? Workstation ID: [id number] Narrative 08/28/2024 7:43 AM EST COMPARISON: 07/27/2024 ?? Resulting Agency Comment [id number] Procedure Note Roberto Wolfe MD - 08/28/2024 [...] possible to obtain thecompleted interpretation. Workstation ID: [id number] Latanya RAHMAN IMG XR PROCEDURES Final R esult documented in this encounter Visit Diagnoses Diagnosis Displaced spiral fracture of shaft of left fibula, subsequent encounter for open fracture type I or II with routine healing- Primary Postop check Follow-up examination, following unspecified surgery documented in this encounter Care Teams Gang Hemstitching Machine Operator Relationship Specialty Start Date End Date Ibrahima Aron [address] [place] [address] PCP - General Internal Medicine 06/29/24 documented as of this encounter
== END 2024-09-03 18:44 | disposition home or self-care (01) ==
LOC: HO.MRI 18:43
PROVIDERS: Visit Provider Physician Assistant
DX: M25.362 Other instability, left knee (principal)
CPT/HCPCS: 73721

== ENCOUNTER 2024-09-14 14:42 | Outpatient (AMB) | payer OTHER, SELFPAY ==
--- NOTE | 2024-09-14 14:42 | A.OFFVIS_ITS ---
Intake Visit Reasons: OV, l ankle pain and l knee mri review Intake Note: Marko is a 44 year old male who is scheduled for a telephone visit to discuss LT ankle pain and LT knee MRI results. Allergies No Known Allergies Allergy (Verified 09/14/24 14:53) Medication List - Last Reconciled 09/14/24 by Eulogio Logan PA-C aspirin 81 mg PO DAILY atorvastatin 80 mg PO BEDTIME carvedilol 6.25 mg PO ONCE ezetimibe 10 mg PO DAILY lisinopril 20 mg PO DAILY nitroglycerin 0.4 mg sublingual .Q5MINS PRN oxycodone-acetaminophen 5-325 mg (Percocet) 2 tabs PO Q8H 7 days tramadol 50 mg PO Q8H PRN HPI HPI OV, l ankle pain and l knee mri review: Details: 44-year-old gentleman presents for a left knee MRI review and left ankle pain. He states he continues to have instability of the left knee and feels as though his tibia is shifting forward. He also complains of left ankle pain and some instability with ambulating. Feels the pain is posterior to the ankle which extends into the heel. He has significant weakness with range of motion of the ankle. REPLACED BY [facility] Medical History (Updated 09/14/24 @ 15:45 by Eulogio Logan PA-C) Left tibial fracture Hx of ventricular tachycardia GERD (gastroesophageal reflux disease) IBS (irritable bowel syndrome) Dyslipidemia Myocardial infarction HTN (hypertension) CAD (coronary artery disease) Elevated lipase Surgical History Hx of cardiac catheterization Hx of colonoscopy History of esophagogastroduodenoscopy (EGD) Hx of tonsillectomy Hx of bone graft History of heart artery stent History of surgery on arm Hx of appendectomy Family History Father Heart problem HTN (hypertension) Paternal Grandfather HTN (hypertension) Social History Housing: House Are you a primary wild animal caretaker to a significant other at home: No Do you presently have visiting nurse or other home services: No Alcohol intake: current Alcohol intake frequency: holidays/special occasions only Patient Tobacco Use Status: Former Tobacco user Tobacco use type: Cigarette Years Smoked: 11 years e-Cigarette/Vaping Use: Never Used Second Hand Smoke Exposure: No service: No Current occupational status: employed Cognitive needs: No Hearing needs: No Vision needs: No Review of Systems Const All systems reviewed & are unremarkable except as noted in HPI and below Physical Exam Resp Effort & Inspection: normal respiratory effort and able to speak in complete sentences Telehealth Telehealth Telehealth Platform: Telephone Location of provider rendering services: practice address Location of patient: address on file Patient Identification confirmed using: Name, : Yes Telehealth method: voice only Patient verbally consented to treatment: Yes Patient verbally consented to billing insurance company: Yes Patient informed of any privacy concerns related to visit: Yes Minutes spent on Phone/Video with Pt.: 10 Results Reviewed Results Reviewed: MR knee LT wo con IMPRESSION: 1. Small joint effusion and small Lynn's cyst. 2. Posterior cruciate ligament tear. 3. Partial tear of the origin of the fibular collateral ligament. 4. Complex tear of the medial meniscus as described. Possible meniscal fragment superior to the root of the medial meniscus. 5. Small cartilage fissure involving the patellar cartilage. Assessment & Plan Assessment & Plan (1) Instability of left knee joint: Code(s): M25.362 - Other instability, left knee Category: Medical Plan: We discussed MRI findings and I explained the instability is likely due to the PCL tear along with his meniscus tear. I explained this is a surgical injury which we would further discuss on his September 21 appointment. (2) Left ankle pain: Code(s): M25.572 - Pain in left ankle and joints of left foot Category: Medical Plan: Given the ongoing pain and weakness in the left ankle an MRI of the left ankle has been ordered to further assess the ligaments and surrounding structures. Coding Level of Care Code Tele Est Pt Level 3 (19264) Diagnoses Instability of left knee joint M25.362 Left ankle pain M25.572
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
--- OUTSIDE RECORDS SUMMARY | 2024-09-14 16:56 | XMS_ITS | Referral Summary ---
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 Ultrasound 06/26/2024 3:20 PM EST Impressions 07/16/2024 9:30 PM EST Exam Information: A skyzk-py-qpgv ultrasound exam was performed of the peritoneal [...] on Resulting Physician: Khoa Marino MD on [email or web address] Narrative Procedure Note Khoa Marino MD - 07/16/2024 IMPRESSION: Exam Information: A kisnk-zm-tglt ultrasound exam was performed of the peritoneal [...] on Resulting Physician: Khoa Marino MD on [email or web address] us Historical Conversion Provider IMG US PROCEDURES Final Result * HEART & VASCULAR - SCANNED (06/26/2024) Only the most recent of2 resultswithin the time period is included. Anatomical Region Laterality Modality Other us Onbase Scan Harpal SCANNED PROCEDURES Final Resu lt from Last [address] [place] [address] MEDICAID [employer] Member Subscriber Plan / Payer (Ef fective 2024-Present) Name:Marko Gotti Member ID:[id number] Relation to Subscriber:Self Name:Marko Gotti Subscriber ID:[id number] Payer ID:[id number] Group ID:Not on file Type:Not on file Address: [address] MEDICAID Advance Directives * Full Code (Latest Code Status on File) Date Activated Date Inactivated Comments 06/27/2024 9:43 AM 06/28/2024 8:37 PM * Full Code Date Activated Date Inactivated Comments 06/27/2024 12:00 AM 06/27/2024 9:43 AM Care Teams Material Distributor Relationship Specialty Start Date End Date Aron Alexandra [address] [place] [address] PCP - General Internal Medicine 06/29/24
--- OUTSIDE RECORDS SUMMARY | 2024-09-14 16:56 | XMS_ITS | Encounter Summary ---
Author Organization [facility] Address [address] [place] [address] Care Team Providers Care Oil Heat Technician Name Role Phone Ibrahima, Jessicarachel Primary Care Provider [phone] Reason for Visit * Reason Comments Post-op * Consultation (Routine) - Authorized Specialty Diagnoses / Procedures Referred By Jose ace Referred To Contact Orthopedic Surgery / Orthopaedic Surgery Diagnoses open fibula fx (doi 06/26) Procedures CO POST-OP FOLLOW-UP VISIT POST OP Aron Alexandra [address] [place] [address] Phone: tel: fax: Latanya Gr PA [address] [place] [id number] Phone: tel: fax: Referral ID Status Reason Start Date Expiration Date V isits Requested Visits Authorized [id number] Authorized 07/02/2024 07/02/2025 6 6 Encounter Details Date Type Department Care Team (Late st Contact Info) Description 08/27/2024 1:30 PM EST Follow-Up [facility] [address] [place] [address] Latanya Gr PA [address] [place] [phone] Displaced spiral fracture of shaft of [...] Info) Description 10/26/2024 1:45 PM EDT Follow-Up [facility] [address] [place] [id number] Latanya Gr PA [address] [place] [phone] documented as of this encounter Results * Due to [place] state law, this organization might not be [...] obtain the completed interpretation. ? Workstation ID: [id number] Narrative 08/28/2024 7:43 AM EST COMPARISON: 07/27/2024 ?? Resulting Agency Comment [id number] Procedure Note Roberto Wolfe MD - 08/28/2024 [...] possible to obtain thecompleted interpretation. Workstation ID: [id number] Latanya RAHMAN IMG XR PROCEDURES Final R esult documented in this encounter Visit Diagnoses Diagnosis Displaced spiral fracture of shaft of left fibula, subsequent encounter for open fracture type I or II with routine healing- Primary Postop check Follow-up examination, following unspecified surgery documented in this encounter Care Teams Oil Heat Technician Relationship Specialty Start Date End Date Ibrahima Aron [address] [place] [address] PCP - General Internal Medicine 06/29/24 documented as of this encounter
== END 2024-09-14 14:52 | disposition home or self-care (01) ==
LOC: HO.HOS 14:42
PROVIDERS: Visit Provider Physician Assistant
DX: M25.362 Other instability, left knee (principal); S83.522A Sprain of posterior cruciate ligament of left knee, initial encounter; S83.422A Sprain of lateral collateral ligament of left knee, initial encounter; S83.242A Other tear of medial meniscus, current injury, left knee, initial encounter
CPT/HCPCS: 99213

== ENCOUNTER → 2024-09-14 14:42 | Outpatient (BNVA) | payer OTHER, SELFPAY | PROVIDERS: Visit Provider Physician Assistant ==

== ENCOUNTER → 2024-09-15 19:44 | Outpatient (BNV) | payer OTHER, SELFPAY | PROVIDERS: Visit Provider Radiology Diagnostic Radiology | DX: M25.572 Pain in left ankle and joints of left foot (principal) | CPT/HCPCS: 73721 ==

== ENCOUNTER 2024-09-15 19:45 | Outpatient (REF) | payer OTHER, SELFPAY ==
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
--- OUTSIDE RECORDS SUMMARY | 2024-09-15 20:09 | XMS_ITS | Encounter Summary ---
Author Organization [facility] Address [address] [place] [address] Care Team Providers Care Director Employee Safety And Health Name Role Phone Ibrahima, Jessicarachel Primary Care Provider [phone] Reason for Visit * Reason Comments Post-op * Consultation (Routine) - Authorized Specialty Diagnoses / Procedures Referred By Jose ace Referred To Contact Orthopedic Surgery / Orthopaedic Surgery Diagnoses open fibula fx (doi 06/26) Procedures CO POST-OP FOLLOW-UP VISIT POST OP Aron Alexandra [address] [place] [address] Phone: tel: fax: Latanya Gr PA [address] [place] [address] Phone: tel: fax: Referral ID Status Reason Start Date Expiration Date V isits Requested Visits Authorized [id number] Authorized 07/02/2024 07/02/2025 6 6 Encounter Details Date Type Department Care Team (Late st Contact Info) Description 08/27/2024 1:30 PM EST Follow-Up [facility] [address] [place] [address] Latanya Gr PA [address] [place] [address] Displaced spiral fracture of shaft of [...] Info) Description 10/26/2024 1:45 PM EDT Follow-Up [facility] [address] [place] [id number] Latanya Gr PA [address] [place] [address] documented as of this encounter Results * Due to [place] state law, this organization might not be [...] obtain the completed interpretation. ? Workstation ID: [id number] Narrative 08/28/2024 7:43 AM EST COMPARISON: 07/27/2024 ?? Resulting Agency Comment [id number] Procedure Note Roberto Wolfe MD - 08/28/2024 [...] possible to obtain thecompleted interpretation. Workstation ID: [id number] Latanya RAHMAN IMG XR PROCEDURES Final R esult documented in this encounter Visit Diagnoses Diagnosis Displaced spiral fracture of shaft of left fibula, subsequent encounter for open fracture type I or II with routine healing- Primary Postop check Follow-up examination, following unspecified surgery documented in this encounter Care Teams Director Employee Safety And Health Relationship Specialty Start Date End Date Ibrahima Aron [address] [place] [address] PCP - General Internal Medicine 06/29/24 documented as of this encounter
== END 2024-09-15 19:46 | disposition home or self-care (01) ==
LOC: HO.MRI 19:45
PROVIDERS: Visit Provider Physician Assistant
DX: M25.572 Pain in left ankle and joints of left foot (principal)
CPT/HCPCS: 73721

== ENCOUNTER 2024-09-18 11:15 | Outpatient (AMB) | payer OTHER, SELFPAY ==
[2024-09-18 11:26] VITALS: BP 116/78; PULSE 85; O2SAT 98; BMI 45.2
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
--- OUTSIDE RECORDS SUMMARY | 2024-09-18 13:18 | XMS_ITS | Referral Summary ---
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 MD - 07/16/2024 IMPRESSION: Exam Information: A wejfg-gq-eioh ultrasound exam was performed of the peritoneal [...] on Resulting Physician: Khoa Marino MD on [id number] [email or web address] us Historical Conversion Provider IMG US PROCEDURES Final Result * HEART & VASCULAR - SCANNED (06/26/2024) Only the most recent of2 resultswithin the time period is included. Anatomical Region Laterality Modality Other us Onbase Scan Harpal SCANNED PROCEDURES Final Resu lt from Last [address] [place] [address] [place] [address] [address] [employer] [address] MEDICAID Advance Directives * Full Code (Latest Code Status on File) Date Activated Date Inactivated Comments 06/27/2024 9:43 AM 06/28/2024 8:37 PM * Full Code Date Activated Date Inactivated Comments 06/27/2024 12:00 AM 06/27/2024 9:43 AM Care Teams [address] Safety Engineer Relationship Specialty Start Date End Date Rufus Owens PA [address] [place] [id number] PCP - General 09/16/24
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
--- OUTSIDE RECORDS SUMMARY | 2024-09-18 13:18 | XMS_ITS | Clinical Summary ---
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 06/28/2024 8:37 PM * Full Code Date Activated Date Inactivated Comments 06/27/2024 12:00 AM 06/27/2024 9:43 AM Care Teams Quality Liaison Relationship Specialty Start Date End Date Rufus Owens PA [address] [place] [id number] PCP - General 09/16/24
--- OUTSIDE RECORDS SUMMARY | 2024-09-18 13:18 | XMS_ITS | Encounter Summary ---
Author Organization [facility] Address [address] [place] [address] Care Team Providers Care Air Bag Stripper Name Role Phone Ibrahima, Jessicarachel Primary Care Provider [phone] Reason for Visit * Reason Comments Post-op * Consultation (Routine) - Authorized Specialty Diagnoses / Procedures Referred By Jose ace Referred To Contact Orthopedic Surgery / Orthopaedic Surgery Diagnoses open fibula fx (doi 06/26) Procedures [place] POST-OP FOLLOW-UP VISIT POST OP Aron Alexandra [address] [place] [address] Phone: tel: fax: Latanya Gr PA [address] [place] [id number] Phone: tel: fax: Referral ID Status Reason Start Date Expiration Date V isits Requested Visits Authorized [id number] Authorized 07/02/2024 07/02/2025 6 6 Encounter Details Date Type Department Care Team (Late st Contact Info) Description 08/27/2024 1:30 PM EST Follow-Up [facility] [address] [place] [address] Latanya Gr PA [address] [place] [address] Displaced spiral fracture of shaft of [...] of bony callus formation Assessment + Plan: Makro Gotti is here today for follow up [...] Description 10/15/2024 1:00 PM EDT Office Visit [facility] [address] [place] [address] Bren Frey NP [address] [place] [address] 10/26/2024 1:45 PM EDT Follow-Up [facility] [address] [place] [address] Latanya Gr PA [address] [place] [phone] documented as of this encounter Results * Due to [place] state law, this organization might not be [...] obtain the completed interpretation. ? Workstation ID: [id number] Narrative 08/28/2024 7:43 AM EST COMPARISON: 07/27/2024 ?? Resulting Agency Comment [id number] Procedure Note Roberto Wolfe MD - 08/28/2024 [...] possible to obtain thecompleted interpretation. Workstation ID: [id number] Latanya RAHMAN IMG XR PROCEDURES Final R esult documented in this encounter Visit Diagnoses Diagnosis Displaced spiral fracture of shaft of left fibula, subsequent encounter for open fracture type I or II with routine healing- Primary Postop check Follow-up examination, following unspecified surgery documented in this encounter Care Teams Air Bag Stripper Relationship Specialty Start Date End Date Ibrahima Aron [address] [place] [address] PCP - General Internal Medicine 06/29/24 09/15/24 documented as of this encounter
== END 2024-09-18 12:22 | disposition home or self-care (01) ==
PROVIDERS: PCP Internal Medicine
DX: Z13.9 Encounter for screening, unspecified (principal)

== ENCOUNTER → 2024-09-18 11:15 | Outpatient (BNVA) | payer OTHER, SELFPAY | PROVIDERS: PCP Internal Medicine | DX: Z00.00 Encounter for general adult medical examination without abnormal findings (principal); I25.10 Atherosclerotic heart disease of native coronary artery without angina pectoris; M25.362 Other instability, left knee; M25.572 Pain in left ankle and joints of left foot; E78.5 Hyperlipidemia, unspecified; S82.832D Other fracture of upper and lower end of left fibula, subsequent encounter for closed fracture with routine healing; E66.01 Morbid (severe) obesity due to excess calories; L30.9 Dermatitis, unspecified; I10 Essential (primary) hypertension; H53.8 Other visual disturbances | CPT/HCPCS: 83036; 96127; 99396 ==

== ENCOUNTER 2024-09-21 11:40 | Outpatient (AMB) | payer OTHER, SELFPAY ==
--- NOTE | 2024-09-21 11:49 | HO.SPINEOV ---
Intake Visit Reasons: 2nd post op Intake Note: Mr. Gotti is here today for his 2nd post op. Oxyacetylene Cutter Required: No Allergies No Known Allergies Allergy (Verified 09/21/24 11:51) Assessment & Plan Assessment & Plan (1) Carpal tunnel syndrome, bilateral: Code(s): G56.03 - Carpal tunnel syndrome, bilateral upper limbs Category: Medical Plan MR Gotti is here for his final postoperative visit. He had a right carpal tunnel release. He has been doing well from the standpoint of those symptoms. The pain that was running up his arm into his armpit is gone. He has no restrictions and can see us back on an as-needed basis at this point. Ovidio Beckham MD, PhD [facility] Sp[facility] Coding Level of Care Code Global (86923) Diagnoses Carpal tunnel syndrome, bilateral G56.03
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
--- OUTSIDE RECORDS SUMMARY | 2024-09-21 13:53 | XMS_ITS | Encounter Summary ---
Author Organization [facility] Address [address] [place] [address] Care Team Providers Care Barrel Assembler Name Role Phone Ibrahima, Jessicarachel Primary Care Provider [phone] Reason for Visit * Reason Comments Post-op * Consultation (Routine) - Authorized Specialty Diagnoses / Procedures Referred By Jose ace Referred To Contact Orthopedic Surgery / Orthopaedic Surgery Diagnoses open fibula fx (doi 06/26) Procedures [place] POST-OP FOLLOW-UP VISIT POST OP Aron Alexandra [address] [place] [address] Phone: tel: fax: Latanya Gr PA [address] [place] [address] Phone: tel: fax: Referral ID Status Reason Start Date Expiration Date V isits Requested Visits Authorized [id number] Authorized 07/02/2024 07/02/2025 6 6 Encounter Details Date Type Department Care Team (Late st Contact Info) Description 08/27/2024 1:30 PM EST Follow-Up [facility] [address] [place] [address] Latanya Gr PA [address] [place] [address] Displaced spiral fracture of shaft of [...] Description 10/15/2024 1:00 PM EDT Office Visit [facility] [address] [place] [address] Bren Frey NP [address] [place] [address] 10/26/2024 1:45 PM EDT Follow-Up [facility] [address] [place] [id number] Latanya Gr PA [address] [place] [address] documented as of this encounter Results * Due to [place] state law, this organization might not be [...] obtain the completed interpretation. ? Workstation ID: [id number] Narrative 08/28/2024 7:43 AM EST COMPARISON: 07/27/2024 ?? Resulting Agency Comment [id number] Procedure Note Roberto Wolfe MD - 08/28/2024 [...] possible to obtain thecompleted interpretation. Workstation ID: [id number] Latanya RAHMAN IMG XR PROCEDURES Final R esult documented in this encounter Visit Diagnoses Diagnosis Displaced spiral fracture of shaft of left fibula, subsequent encounter for open fracture type I or II with routine healing- Primary Postop check Follow-up examination, following unspecified surgery documented in this encounter Care Teams Barrel Assembler Relationship Specialty Start Date End Date Ibrahima Aron [address] [place] [address] PCP - General Internal Medicine 06/29/24 09/15/24 documented as of this encounter
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
== END 2024-09-21 12:11 | disposition home or self-care (01) ==
PROVIDERS: PCP Internal Medicine; Visit Provider Physician Assistant
DX: G56.03 Carpal tunnel syndrome, bilateral upper limbs (principal)
CPT/HCPCS: 99024

== ENCOUNTER → 2024-09-21 11:40 | Outpatient (BNVA) | payer OTHER, SELFPAY | PROVIDERS: PCP Internal Medicine; Visit Provider Physician Assistant ==

== ENCOUNTER 2024-09-21 12:14 | Outpatient (AMB) | payer OTHER, SELFPAY ==
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
[2024-09-21 12:51] VITALS: BMI 45.2
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
--- OUTSIDE RECORDS SUMMARY | 2024-09-21 14:21 | XMS_ITS | Encounter Summary ---
Author Organization [facility] Address [address] [place] [address] Care Team Providers Care Art Therapist Name Role Phone Ibrahima, Jessicarachel Primary Care Provider [phone] Reason for Visit * Reason Comments Post-op * Consultation (Routine) - Authorized Specialty Diagnoses / Procedures Referred By Jose ace Referred To Contact Orthopedic Surgery / Orthopaedic Surgery Diagnoses open fibula fx (doi 06/26) Procedures NV POST-OP FOLLOW-UP VISIT POST OP Aron Alexandra [address] [place] [address] Phone: tel: fax: Latanya Gr PA [address] [place] [address] Phone: tel: fax: Referral ID Status Reason Start Date Expiration Date V isits Requested Visits Authorized [id number] Authorized 07/02/2024 07/02/2025 6 6 Encounter Details Date Type Department Care Team (Late st Contact Info) Description 08/27/2024 1:30 PM EST Follow-Up [facility] [address] [place] [address] Latanya Gr PA [address] [place] [address] Displaced spiral fracture of shaft of [...] Description 10/15/2024 1:00 PM EDT Office Visit [facility] [address] [place] [address] Bren Frey NP [address] [place] [address] 10/26/2024 1:45 PM EDT Follow-Up [facility] [address] [place] [address] Latanya Gr PA [address] [place] [address] documented as of this encounter Results * Due to [place] state law, this organization might not be [...] obtain the completed interpretation. ? Workstation ID: [id number] Narrative 08/28/2024 7:43 AM EST COMPARISON: 07/27/2024 ?? Resulting Agency Comment [email or web address] Procedure Note Roberto Wolfe MD - 08/28/2024 [...] possible to obtain thecompleted interpretation. Workstation ID: [id number] Latanya RAHMAN IMG XR PROCEDURES Final R esult documented in this encounter Visit Diagnoses Diagnosis Displaced spiral fracture of shaft of left fibula, subsequent encounter for open fracture type I or II with routine healing- Primary Postop check Follow-up examination, following unspecified surgery documented in this encounter Care Teams Art Therapist Relationship Specialty Start Date End Date Ibrahima Aron [address] [place] [address] PCP - General Internal Medicine 06/29/24 09/15/24 documented as of this encounter
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
== END 2024-09-21 13:51 | disposition home or self-care (01) ==
PROVIDERS: Visit Provider Physician Assistant
DX: S83.529A Sprain of posterior cruciate ligament of unspecified knee, initial encounter (principal); S83.289A Other tear of lateral meniscus, current injury, unspecified knee, initial encounter; Z04.3 Encounter for examination and observation following other accident
CPT/HCPCS: 99213

== ENCOUNTER 2024-09-24 14:05 | Outpatient (AMB) | payer OTHER, SELFPAY ==
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
[2024-09-24 14:25] VITALS: BP 120/80; PULSE 95; BMI 46.4
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
--- OUTSIDE RECORDS SUMMARY | 2024-09-24 17:16 | XMS_ITS | Encounter Summary ---
Author Organization [facility] Address [address] [place] [address] Care Team Providers Care Stars Coordinator Name Role Phone Ibrahima, Jessicarachel Primary Care Provider [phone] Reason for Visit * Reason Comments Post-op * Consultation (Routine) - Authorized Specialty Diagnoses / Procedures Referred By Jose ace Referred To Contact Orthopedic Surgery / Orthopaedic Surgery Diagnoses open fibula fx (doi 06/26) Procedures [place] POST-OP FOLLOW-UP VISIT POST OP Aron Alexandra [address] [place] [address] Phone: tel: fax: Latanya Gr PA [address] [place] [address] Phone: tel: fax: Referral ID Status Reason Start Date Expiration Date V isits Requested Visits Authorized [id number] Authorized 07/02/2024 07/02/2025 6 6 Encounter Details Date Type Department Care Team (Late st Contact Info) Description 08/27/2024 1:30 PM EST Follow-Up [facility] [address] [place] [address] Latanya Gr PA [address] [place] [address] Displaced spiral fracture of shaft of [...] Description 10/15/2024 1:00 PM EDT Office Visit [facility] [address] [place] [address] Bren Frey NP [address] [place] [address] 10/26/2024 1:45 PM EDT Follow-Up [facility] [address] [place] [phone] Latanya Gr PA [address] [place] [address] documented as of this encounter Results * Due to [place] state law, this organization might not be [...] obtain the completed interpretation. ? Workstation ID: [id number] Narrative 08/28/2024 7:43 AM EST COMPARISON: 07/27/2024 ?? Resulting Agency Comment [id number] Procedure Note Roberto Wolfe MD - 08/28/2024 [...] possible to obtain thecompleted interpretation. Workstation ID: [id number] Latanya RAHMAN IMG XR PROCEDURES Final R esult documented in this encounter Visit Diagnoses Diagnosis Displaced spiral fracture of shaft of left fibula, subsequent encounter for open fracture type I or II with routine healing- Primary Postop check Follow-up examination, following unspecified surgery documented in this encounter Care Teams Stars Coordinator Relationship Specialty Start Date End Date Ibrahima Aron [address] [place] [address] PCP - General Internal Medicine 06/29/24 09/15/24 documented as of this encounter
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
== END 2024-09-24 15:03 | disposition home or self-care (01) ==
PROVIDERS: PCP Internal Medicine; Visit Provider Internal Medicine
DX: I25.10 Atherosclerotic heart disease of native coronary artery without angina pectoris (principal); E66.01 Morbid (severe) obesity due to excess calories; Z01.810 Encounter for preprocedural cardiovascular examination
CPT/HCPCS: 93010; 99214; G2211

== ENCOUNTER → 2024-09-24 14:05 | Outpatient (BNVA) | payer OTHER, SELFPAY | PROVIDERS: PCP Internal Medicine; Visit Provider Internal Medicine | DX: Z01.810 Encounter for preprocedural cardiovascular examination (principal); I25.10 Atherosclerotic heart disease of native coronary artery without angina pectoris; E66.01 Morbid (severe) obesity due to excess calories; Z68.42 Body mass index [BMI] 45.0-49.9, adult; Z79.899 Other long term (current) drug therapy | CPT/HCPCS: 93005 ==

== ENCOUNTER 2024-12-18 11:27 | Outpatient (AMB) | payer OTHER, SELFPAY ==
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
[2024-12-18 11:32] VITALS: BP 140/80; PULSE 86; TEMP 36.2; O2SAT 97; BMI 46.8
--- OUTSIDE RECORDS SUMMARY | 2024-12-18 12:23 | XMS_ITS | Continuity of Care Document ---
Author Organization [facility], [facility] PT Address [address] [place] [address] Care Team Providers Care Layout Inspector Name Role Phone ELDA JENNINGS Primary Care Provider [phone] Assessment Encounter Date Assessment Date Assessment LastModified by Organization Details LastModified Time 12/17/2024 12/17/2024 Assessment: Good improvement with knee flexion. Increased resistance with shuttle exercises. Pt challenged but able to complete. Plan: Continue PT @ 2x/wk for 4 weeks to decrease pain, optimize motion, increase strength, and foster independence with functional ADL's. *WBAT (L) LE, no ROM restrictions *Week 2: heel raises, balance *Week 3: bike with resistance, squats, bridges *Week 5: balance squats, RDL, leg press *Week 6: single plane agility [email or web address] Not available 12/17/2024 14:47:56 Plan of Treatment Reminders Order Date Submit Date Provider Last Modified By Organization Details Last Modified Time Details Appointments PT FOLLOW -UP 025 10:30AM Sullivan Angi, TELEPHONE PLANT POWER OPERATOR Not available Not available Not available PT FOLLOW -UP 025 11:30AM Sullivan Angi, TELEPHONE PLANT POWER OPERATOR Not available Not available Not available PT FOLLOW -UP 025 09:30AM Kay Kelvin, PT Not available Not available Not available PT FOLLOW -UP 025 09:30AM Kay Kelvin, PT Not available Not available Not available PT FOLLOW -UP 025 02:00PM Sullivan Angi, TELEPHONE PLANT POWER OPERATOR Not available Not available Not available PT FOLLOW -UP 025 02:00PM Sullivan Angi, TELEPHONE PLANT POWER OPERATOR Not available Not available Not available PT FOLLOW -UP 025 02:00PM Sullivan Angi, TELEPHONE PLANT POWER OPERATOR Not available Not available Not available PT FOLLOW -UP 025 03:30PM Kay Kelvin, PT Not available Not available Not available PT FOLLOW -UP 025 02:00PM Sullivan Angi, TELEPHONE PLANT POWER OPERATOR Not available Not available Not available PT FOLLOW -UP 025 03:30PM Kay [place], PT Not available Not available Not available PT FOLLOW -UP 025 02:00PM Sullivan Angi, TELEPHONE PLANT POWER OPERATOR Not available Not available Not available PT FOLLOW -UP 025 02:00PM Sullivan Angi, TELEPHONE PLANT POWER OPERATOR Not available Not available Not available PT FOLLOW -UP 025 02:30PM Kay Kelvin, PT Not available Not available Not available PT FOLLOW -UP 025 02:30PM Kay Kelvin, PT Not available Not available Not available Lab None record ed. Referral None record ed. Procedures None record ed. Surgeries None record ed. Imaging None record ed. Medication Orders None record ed. Patient Targets Encounter Date Encounter Id Patient Goals Patient Target Last Modified By Organization Details Last Modified Time STGs 2 weeks:1. Able to stand > 30 min without rest breaks for meal prep.2. Increase (L) knee AROM to 0-120*3. Able to ambulate household distances without AD and normal mechanics.4. Increase (L) ankle DF AROM to 10*LTGs 4 weeks:1. Able to ambulate community distances without AD and normal mechanics.2. Able to navigate stairs reciprocally with use of handrail.3. Able to squat and knot picker cloth object from floor without pain. Not available 12/17/2024 12:55:23 Patient InstructionsNo instructions recorded. Reason for Referral None Reported. Problems Name Problem SNOMED Code Status Onset Date Resolution Date Notes Provider Name and Address Organization Details Recorded Time Closed fracture of shaft of left tibia 3046829277107 9108 Active 2024 PADMINI swain [place] - [facility] 13:59:41 Tear of meniscus of knee 663683750 Active 2024 SANTOS swain [facility] 15:12:26 Tear of meniscus of knee 300273846 Active 2024 SANTOS swain, [place] - [facility] 15:12:53 Acute meniscal tear, medial 506809538 Active 2024 Toshia Patiño PA-C [address], [place], [address], [facility] 15:21:03 Osteoarthri tis of left knee joint 0393340422017 09 Active 2024 Toshia Patiño PA-C [address], [place], [address], [facility] 15:21:08 Problem Notes None recorded. Procedures Surgical History Date Name Laterality Status Provider Name and Address Organization Details Recorded Time 5 41367: Therapeutic Activities (1:1) completed Laurie Whitley, TELEPHONE PLANT POWER OPERATOR [address], [place], [address], [facility] 12/17/2024 12:55:23 5 03072 Therapeutic Exercise (1:1) completed Laurie Whitley, TELEPHONE PLANT POWER OPERATOR [address], [place], [address], [facility] 12/17/2024 12:55:23 5 66511: Therapeutic Activities (1:1) completed Laurie Whitley, TELEPHONE PLANT POWER OPERATOR [address], [place], [address], [facility] 12/15/2024 14:34:33 5 77235 Therapeutic Exercise (1:1) completed Laurie Whitley, TELEPHONE PLANT POWER OPERATOR [address], [place], [address], [facility] 12/15/2024 14:34:33 5 94053: Therapeutic Activities (1:1) completed Sullivan Angi, TELEPHONE PLANT POWER OPERATOR [address], [place], [address], [facility] 12/07/2024 16:38:24 5 76434 Therapeutic Exercise (1:1) completed Sullivan Angi, TELEPHONE PLANT POWER OPERATOR [address], [place], [address], [facility] 12/07/2024 15:28:38 5 84873 Therapeutic Exercise (1:1) completed Sullivan Angi, TELEPHONE PLANT POWER OPERATOR [address], [place], [address], [facility] 12/02/2024 12:31:01 5 45224: Hot or Cold Pack completed Sullivan Angi, TELEPHONE PLANT POWER OPERATOR [address], [place], [address], [facility] 12/02/2024 12:31:01 5 93571 Therapeutic Exercise (1:1) completed Sullivan Agni, TELEPHONE PLANT POWER OPERATOR [address], [place], [address], [facility] 11/30/2024 13:41:22 5 21700: Hot or Cold Pack completed Sullivan Angi, TELEPHONE PLANT POWER OPERATOR [address], [place], [address], [facility] 11/30/2024 13:41:28 5 17790 Therapeutic Exercise (1:1) completed Kay [place], PT [address], [place], [address], [facility] 11/27/2024 12:29:43 5 32822: Low complexity PT Eval completed Kay Kelvin, PT [address], [place], [address], [facility] 11/27/2024 08:29:02 Imaging Results None recorded. Procedure Notes None recorded. Medical Equipment None Reported. Allergies No known drug allergies Medications Name Sig Start Date Stop Date Status Note LastModified by Organization Details LastModified Time atorvastati n 80 mg tablet TAKE 1 TABLET BY MOUTH EVERY DAY AT BEDTIME 10/28 completed Not Available Not Available Not Available carvedilol 6.25 mg tablet TAKE 1 TABLET BY MOUTH EVERY DAY ONCE active Not Available Not Available No t Available meloxicam 15 mg tablet TAKE 1 TABLET BY MOUTH EVERY DAY 10/28 completed Not Available Not Available Not Available lisinopril 20 mg tablet TAKE 1 TABLET BY MOUTH EVERY DAY 10/28 completed Not Available Not Available Not Available ondansetron HCl 4 mg tablet TAKE 1 TABLET EVERY 6-8 HOURS BY ORAL ROUTE NEEDED, FOR NAUSEA. active Not Available Not Available No t Available aspirin 81 mg tablet,teresa yed release TAKE 1 TABLET (81 MG TOTAL) BY MOUTH 2 TIMES A DAY. 10/28 completed Not Available Not Available Not Available oxycodone-a cetaminophe n 5 mg-325 mg tablet TAKE 2 TABLETS BY MOUTH EVERY 8 HOURS NEEDED FOR PAIN FOR 7 DAYS 10/28 completed Not Available Not Available Not Available aspirin 325 mg tablet,teresa yed release TAKE 1 TABLET BY MOUTH EVERY DAY BEGINNING THE DAY AFTER SURGERY active Not Available Not Available No t Available lidocaine 5 % topical patch APPLY 1 PATCH TO AFFECTED AREA EVERY DAY AT BEDTIME. WEAR FOR 12 HOURS THEN REMOVE FOR 12 HOURS. REPEAT DAILY. 10/28 completed Not Available Not Available Not Available nitroglycer in 0.4 mg sublingual tablet PUT 1 TAB UNDER THE TONGUE EVERY 5 MINUTES NEEDED FOR CHEST PAIN 10/28 completed Not Available Not Available Not Available aspirin 81 mg chewable tablet TAKE 1 TABLET BY MOUTH EVERY DAY 10/28 completed Not Available Not Available Not Available naproxen 500 mg tablet TAKE 1 TABLET BY MOUTH TWICE A DAY WITH FOOD FOR 5 DAYS active Not Available Not Available No t Available oxycodone 5 mg tablet TAKE 1 TABLET BY MOUTH EVERY 4-6 HOURS NEEDED FOR MODERATE TO SEVERE PAIN active Not Available Not Available No t Available ezetimibe 10 mg tablet TAKE 1 TABLET BY MOUTH EVERY DAY 10/28 completed Not Available Not Available Not Available cyclobenzap rine 5 mg tablet TAKE 1 TABLET BY MOUTH EVERY DAY AT BEDTIME NEEDED FOR HEADACHE 10/28 completed Not Available Not Available Not Available Vitals None Recorded Social History None recorded. Functional Status None recorded. Mental Status None recorded. Family History Nothing Reported. Medical History Condition Response Allergies/Hayfever N Coronary Artery Disease N Breathing or lung disorders N Anxiety/Depression N Emphysema N Nerve Disorders N Thyroid Problems N COPD N Pacemaker N Kidney/Bladder Problems N Anemia N Vascular Disease N Heart Trouble Y Heart Attack ([place]) Y Gastrointestinal Disease N Cholesterol N Diabetes N Autoimmune disease N Inflammatory Joint disease N Bleeding Disorder N Orthotics N Seizures/Epilepsy N Arthritis N Blood Clot N AIDS/HIV N Congestive Heart Failure (CHF) N Acid Reflux (GERD) N Cancer N Stroke N Asthma N Circulation Problems N Peripheral Vascular Disease N Sleep Apnea N Hepatitis N Heart Disease N Rheumatoid Arthritis N Pulmonary Embolism N Arrhythmia N Headaches N Fibromyalgia N Hypertension N Osteoporosis N Past Encounters Encounter ID Performer Location Encounter Start Date Encounter Closed Date Diagnosis/Indication Diagnosis SNOMED-CT Code Diagnosis ICD10 Code Diagnosis Note [id number] Kay Warren[facility] [address] [place] [address] 11/27/2024 10:37:27 11/27/2024 15:21:51 Tear of medial meniscus of knee 597942110 S83.242D [id number] Laurie Whitley, TELEPHONE PLANT POWER OPERATOR [facility] [address] [place] [address] 11/30/2024 11:34:07 11/30/2024 14:21:19 Tear of medial meniscus of knee 021547751 S83.242D [id number] Sullivan Angi, TELEPHONE PLANT POWER OPERATOR [facility] [address] [place] [address] 12/02/2024 12:11:57 12/02/2024 15:17:15 Tear of medial meniscus of knee 236842279 S83.242D [id number] Laurie Bassettf, TELEPHONE PLANT POWER OPERATOR [facility] [address] [place] [address] 12/07/2024 15:27:58 12/07/2024 16:55:21 Tear of medial meniscus of knee 173099091 S83.242D [id number] JEISON PowellA - [address] [place] [address] 12/08/2024 10:09:06 12/17/2024 12:12:24 Postoperative visit 340502691 Z48.89 Acute meni scal tear, medial 423203293 S83.232D Osteoarthr itis of left knee joint 1986234692 19034 M17.12 [id number] Laurie Whitley, TELEPHONE PLANT POWER OPERATOR [facility] [address] [place] [address] 12/15/2024 14:14:16 12/15/2024 15:11:30 Tear of medial meniscus of knee 047765102 S83.242D [id number] Sullivanjorge Whitley, TELEPHONE PLANT POWER OPERATOR [facility] [address] [place] [address] 12/17/2024 12:49:00 12/17/2024 14:58:27 Tear of medial meniscus of knee 941523882 S83.242D Health Concerns Section Related Observation LastModified by Organization Detai ls LastModified Time None Recorded Concern Status LastModified by Organization Details LastModified Time None Recorded Payers Encounter Date Sequence Insurance Name Policy Number Policy Bazan Covered Member ID Bazan Member ID Guarantor Name 12/17/2024 1 [employer] - HEALTH NET PLAN (MEDICAID HMO) ASHWINI Gotti [id number] Marko Gotti Notes Date Note Type Note Provider Name and Address Organization Details Recorded Time 12/17/2024 text/html Pt reports knee is feeling good. Quad is still sore but not as sore as it used to be. Laurie Whitley, TELEPHONE PLANT POWER OPERATOR [address], [place], [address], [facility] - [facility] 12/17/2024 14:49:50
== END 2024-12-18 12:11 | disposition home or self-care (01) ==
LOC: HO.HMCH 11:28
PROVIDERS: PCP Internal Medicine
DX: I10 Essential (primary) hypertension (principal); E66.01 Morbid (severe) obesity due to excess calories; Z68.42 Body mass index [BMI] 45.0-49.9, adult; Z87.19 Personal history of other diseases of the digestive system; S83.272D Complex tear of lateral meniscus, current injury, left knee, subsequent encounter; R74.8 Abnormal levels of other serum enzymes; E78.5 Hyperlipidemia, unspecified; I25.10 Atherosclerotic heart disease of native coronary artery without angina pectoris; R74.01 Elevation of levels of liver transaminase levels

== ENCOUNTER 2024-12-18 11:27 | Outpatient (REF) | payer OTHER, SELFPAY ==
[2024-12-18 16:27] LABS: MANUAL DIFF FLAG NO
[2024-12-18 16:37] LABS: Basophils Percent Auto 0.6 % (0-2); Eosinophils Absolute Auto 0.1 X10*3/uL (0.0-0.4); Hematocrit 47.3 % (42.0-52.0); Hemoglobin 16.5 g/dl (14.0-18.0); Imm Gran Abs Auto 0.02 X10*3/uL (0.00-0.03); Imm Gran Pct Auto 0.3 % (0.0-0.4); Lymphocytes Absolute Auto 2.1 X10*3/uL (1.2-4.9); Lymphocytes Percent Auto 30.6 % (20-40); Mean Corpuscular HGB Conc 34.9 g/dl (31.0-36.0); Mean Corpuscular Hemoglobin 29.7 pg (27.0-33.0); Mean Corpuscular Volume 85.2 fL (80.0-98.0); Mean Platelet Volume 10.9 fL (9.4-12.4); Monocytes Absolute Auto 0.8 X10*3/uL (0.1-1.2); Neutrophils Absolute Auto 3.8 x10*3/uL (2.0-8.3); Neutrophils Percent Auto 56.5 % (45-73); Platelet Count 274 X10*3/uL (160-400); Red Blood Count 5.55 X10*6/uL (4.60-5.80); White Blood Count 6.8 X10*3/uL (4.8-10.8)
[2024-12-18 17:17] LABS: Alanine Aminotransferase 45 U/L (0-40); Albumin Level 4.6 g/dL (3.5-5.0); Alkaline Phosphatase 97 U/L (39-117); Amylase 156 U/L (28-100); Anion Gap 13 (12-20); Aspartate Amino Transferase 29 U/L (5-37); Blood Urea Nitrogen 12 mg/dL (9-16); Calcium 9.6 mg/dL (8.4-10.2); Carbon Dioxide 28 mmol/L (22-29); Chloride 105 mmol/L (96-108); Cholesterol 173 mg/dL (<200); Estimated Glomerular Filt Rate > 60; Glucose Fasting 99 mg/dL (60-99); HDL Cholesterol 33 mg/dL (>40); LDL Cholesterol Calculated 110 mg/dL (<100); Lipase 134 U/L (8-78); Potassium 4.2 mmol/L (3.3-5.1); Sodium 142 mmol/L (135-145); Total Protein 7.4 g/dL (6.5-8.0); Triglycerides 152 mg/dL (<150)
[2024-12-18 17:33] LABS: TSH reflex Free T4 1.47 uIU/mL (0.32-4.0); Vitamin D 25-OH Total 38.6 ng/mL (>30)
== END 2024-12-18 11:28 | disposition home or self-care (01) ==
LOC: HO.HMGCLDS 11:27
DX: E78.5 Hyperlipidemia, unspecified (principal); I10 Essential (primary) hypertension; S83.272D Complex tear of lateral meniscus, current injury, left knee, subsequent encounter; E66.01 Morbid (severe) obesity due to excess calories; Z68.42 Body mass index [BMI] 45.0-49.9, adult; R74.8 Abnormal levels of other serum enzymes; I25.10 Atherosclerotic heart disease of native coronary artery without angina pectoris; R74.01 Elevation of levels of liver transaminase levels; Z87.19 Personal history of other diseases of the digestive system; Z79.82 Long term (current) use of aspirin; Z79.899 Other long term (current) drug therapy; R10.12 Left upper quadrant pain; M25.572 Pain in left ankle and joints of left foot; G47.33 Obstructive sleep apnea (adult) (pediatric)
CPT/HCPCS: 36415; 80053; 80061; 82150; 82306; 83690; 84443; 85025; 99212

== ENCOUNTER 2025-02-25 15:12 | Outpatient (REF) | payer OTHER, SELFPAY ==
--- NOTE | ~2025-02-25 | US_ITS ---
EXAMINATION: US ABDOMEN COMPLETE CLINICAL INFORMATION: Abdominal pain. COMPARISON: CT abdomen pelvis 04/12/2023 TECHNIQUE: Real-time imaging of the abdominal viscera. FINDINGS: Limited exam due to patient's body habitus. PANCREAS: Visualized portions are unremarkable. ABDOMINAL AORTA: The proximal, mid, and distal segments are normal in caliber. INFERIOR VENA CAVA: Visualized portions are normal. LIVER: The liver is normal in size. The liver contour is normal. Parenchymal echogenicity is increased. No focal hepatic lesion. There is no intrahepatic biliary duct dilatation seen. GALLBLADDER: The gallbladder is physiologically distended echogenic stones. No pericholecystic fluid collection seen fluid. Gallbladder wall thickness is 0.2 cm. COMMON BILE DUCT: CBD is not visualized.. RIGHT KIDNEY: No hydronephrosis. There is anechoic cyst measuring 1.1 x 0.8 x 1.1 cm.. The kidney measures 11.9 cm in maximum dimension. LEFT KIDNEY: No hydronephrosis. No renal calculi or focal parenchymal lesions. The kidney measures 12.8 cm in maximum dimension. SPLEEN: The spleen measures 11.8 cm in maximum dimension. FREE FLUID: None. US/US abdomen complete IMPRESSION: Echogenic liver without focal lesion. Simple cyst right kidney measuring 1.1 cm. Contracted gallbladder with echogenic stones. Electronically signed by: Hayder Hernandez MD 02/25/2025 04:20 PM EDT
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
== END 2025-02-25 15:13 | disposition home or self-care (01) ==
LOC: HO.US 15:12
DX: R74.8 Abnormal levels of other serum enzymes (principal); R10.9 Unspecified abdominal pain
CPT/HCPCS: 76700

== ENCOUNTER → 2025-02-25 15:14 | Outpatient (BNV) | payer OTHER, SELFPAY | PROVIDERS: Visit Provider Radiology Diagnostic Radiology | DX: N28.1 Cyst of kidney, acquired (principal) | CPT/HCPCS: 76700 ==

== ENCOUNTER 2025-03-02 13:45 | Outpatient (AMB) | payer OTHER, SELFPAY ==
[2025-03-02 13:47] VITALS: BP 126/68; PULSE 78; BMI 48.8
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
== END 2025-03-02 14:11 | disposition home or self-care (01) ==
LOC: HO.HCS 13:46
PROVIDERS: PCP Internal Medicine; Visit Provider Internal Medicine
DX: I25.10 Atherosclerotic heart disease of native coronary artery without angina pectoris (principal); E66.01 Morbid (severe) obesity due to excess calories
CPT/HCPCS: 99214; G2211

== ENCOUNTER 2025-03-10 14:18 | Outpatient (AMB) | payer OTHER, SELFPAY ==
[2025-03-10 14:26] VITALS: BP 110/80; PULSE 78; RESP 18; TEMP 36.2; O2SAT 95; BMI 48.0
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
== END 2025-03-10 15:44 | disposition home or self-care (01) ==
LOC: HO.HMCH 14:19
PROVIDERS: PCP Internal Medicine
DX: I10 Essential (primary) hypertension (principal); E66.01 Morbid (severe) obesity due to excess calories; Z68.42 Body mass index [BMI] 45.0-49.9, adult; T78.40XS Allergy, unspecified, sequela; E78.5 Hyperlipidemia, unspecified; K21.9 Gastro-esophageal reflux disease without esophagitis; Z87.19 Personal history of other diseases of the digestive system; R10.9 Unspecified abdominal pain; S82.292B Other fracture of shaft of left tibia, initial encounter for open fracture type I or II; G56.03 Carpal tunnel syndrome, bilateral upper limbs

== ENCOUNTER → 2025-03-10 14:18 | Outpatient (BNVA) | payer OTHER, SELFPAY | PROVIDERS: PCP Internal Medicine | DX: I10 Essential (primary) hypertension (principal); G58.9 Mononeuropathy, unspecified; G56.02 Carpal tunnel syndrome, left upper limb; E78.5 Hyperlipidemia, unspecified; E66.01 Morbid (severe) obesity due to excess calories; K21.9 Gastro-esophageal reflux disease without esophagitis; R10.9 Unspecified abdominal pain; S82.292K Other fracture of shaft of left tibia, subsequent encounter for closed fracture with nonunion; V89.2XXD Person injured in unspecified motor-vehicle accident, traffic, subsequent encounter; G56.03 Carpal tunnel syndrome, bilateral upper limbs; Z87.19 Personal history of other diseases of the digestive system | CPT/HCPCS: 96127; 99212 ==

== ENCOUNTER 2025-07-01 13:40 | Outpatient (AMB) | payer OTHER, SELFPAY ==
[2025-07-01 13:45] VITALS: BP 120/88; PULSE 98; RESP 18; O2SAT 96; BMI 47.9
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
== END 2025-07-01 14:43 | disposition home or self-care (01) ==
LOC: HO.HMCH 13:41
DX: I10 Essential (primary) hypertension (principal); I25.2 Old myocardial infarction; E66.01 Morbid (severe) obesity due to excess calories; Z68.42 Body mass index [BMI] 45.0-49.9, adult; Z01.818 Encounter for other preprocedural examination; S82.292B Other fracture of shaft of left tibia, initial encounter for open fracture type I or II; S82.832D Other fracture of upper and lower end of left fibula, subsequent encounter for closed fracture with routine healing; I25.10 Atherosclerotic heart disease of native coronary artery without angina pectoris; K21.9 Gastro-esophageal reflux disease without esophagitis; Z87.19 Personal history of other diseases of the digestive system

== ENCOUNTER → 2025-07-01 13:40 | Outpatient (BNVA) | payer OTHER, SELFPAY | DX: Z01.818 Encounter for other preprocedural examination (principal); S82.292B Other fracture of shaft of left tibia, initial encounter for open fracture type I or II; S82.832D Other fracture of upper and lower end of left fibula, subsequent encounter for closed fracture with routine healing; I25.10 Atherosclerotic heart disease of native coronary artery without angina pectoris; I21.3 ST elevation (STEMI) myocardial infarction of unspecified site; K21.9 Gastro-esophageal reflux disease without esophagitis; E66.01 Morbid (severe) obesity due to excess calories | CPT/HCPCS: 99212 ==

== ENCOUNTER 2025-07-08 08:31 | Outpatient (REF) | payer OTHER, SELFPAY ==
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
[2025-07-08 10:25] LABS: MANUAL DIFF FLAG NO
[2025-07-08 10:39] LABS: Hematocrit 51.4 % (42.0-52.0); Hemoglobin 17.1 g/dl (14.0-18.0); Imm Gran Abs Auto 0.03 X10*3/uL (0.00-0.03); Imm Gran Pct Auto 0.4 % (0.0-0.4); Lymphocytes Absolute Auto 1.9 X10*3/uL (1.2-4.9); Mean Corpuscular HGB Conc 33.3 g/dl (31.0-36.0); Mean Corpuscular Hemoglobin 28.7 pg (27.0-33.0); Mean Corpuscular Volume 86.4 fL (80.0-98.0); NRBC Abs Auto 0.000 X10*3/uL (0.0-0.012); NRBC Pct Auto 0.0 /100WBC (0.0-0.2); Platelet Count 273 X10*3/uL (160-400); Red Blood Count 5.95 X10*6/uL (4.60-5.80); White Blood Count 8.0 X10*3/uL (4.8-10.8)
[2025-07-08 11:29] LABS: Alanine Aminotransferase 40 U/L (0-40); Albumin Level 4.4 g/dL (3.5-5.0); Alkaline Phosphatase 89 U/L (39-117); Anion Gap 11 (12-20); Aspartate Amino Transferase 31 U/L (5-37); Blood Urea Nitrogen 15 mg/dL (9-16); Calcium 9.9 mg/dL (8.4-10.2); Carbon Dioxide 28 mmol/L (22-29); Chloride 104 mmol/L (96-108); Cholesterol 180 mg/dL (<200); Estimated Glomerular Filt Rate > 60; HDL Cholesterol 38 mg/dL (>40); Lipase 30 U/L (8-78); Potassium 4.2 mmol/L (3.3-5.1); Sodium 139 mmol/L (135-145); Total Protein 7.2 g/dL (6.5-8.0); Triglycerides 127 mg/dL (<150)
[2025-07-08 12:41] LABS: Amylase 64 U/L (28-100)
== END 2025-07-08 08:32 ==
LOC: HO.HMGCLDS 08:31
DX: Z01.818 Encounter for other preprocedural examination (principal); I10 Essential (primary) hypertension; E66.9 Obesity, unspecified; K21.9 Gastro-esophageal reflux disease without esophagitis; K29.60 Other gastritis without bleeding; R74.01 Elevation of levels of liver transaminase levels; R74.8 Abnormal levels of other serum enzymes; Z87.19 Personal history of other diseases of the digestive system
CPT/HCPCS: 36415; 80053; 80061; 82150; 83036; 83690; 84443; 85025

== ENCOUNTER 2025-07-12 08:54 | Outpatient (AMB) | payer OTHER, SELFPAY ==
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
[2025-07-12 09:07] VITALS: BP 122/68; PULSE 81; BMI 48.2
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
== END 2025-07-12 09:31 | disposition home or self-care (01) ==
LOC: HO.HCS 08:55
PROVIDERS: Visit Provider Internal Medicine
DX: I25.10 Atherosclerotic heart disease of native coronary artery without angina pectoris (principal); I10 Essential (primary) hypertension; E66.01 Morbid (severe) obesity due to excess calories; Z01.810 Encounter for preprocedural cardiovascular examination
CPT/HCPCS: 93010; 99214

== ENCOUNTER → 2025-07-12 08:54 | Outpatient (BNVA) | payer OTHER, SELFPAY | PROVIDERS: Visit Provider Internal Medicine | DX: Z01.810 Encounter for preprocedural cardiovascular examination (principal); I25.10 Atherosclerotic heart disease of native coronary artery without angina pectoris; I10 Essential (primary) hypertension; E66.01 Morbid (severe) obesity due to excess calories; Z87.891 Personal history of nicotine dependence; Z68.42 Body mass index [BMI] 45.0-49.9, adult; Z79.82 Long term (current) use of aspirin; Z79.899 Other long term (current) drug therapy | CPT/HCPCS: 93005; 99212 ==